=== PATIENT | male | born 1945 | race Caucasian/White ===

== ENCOUNTER 2021-02-21 10:05 | Emergency (ER) | payer MEDICARE, OTHER, SELFPAY ==
--- NOTE | ~2021-02-21 | XR_ITS ---
EXAMINATION: XR FOOT, LEFT CLINICAL INFORMATION: Left foot injury. Pain. COMPARISON: None TECHNIQUE: AP, lateral, and oblique views of the left foot. FINDINGS: There is no visible acute fracture, dislocation or subluxation seen. The ankle mortise and subtalar joints are normal. There is dorsal talonavicular osteophyte likely from old injury. The soft tissues are normal. XR/XR foot LT min 3V IMPRESSION: Unremarkable left foot exam.
[2021-02-21 10:30] VITALS: BP 193/91; PULSE 81; RESP 16; TEMP 36.8; O2SAT 97; BMI 28.1
--- NOTE | 2021-02-21 10:44 | ED_ITS ---
HPI - Extremity Injury (Lower) General Chief Complaint: Extremity Injury, Lower Stated Complaint: lt foot pain Time Seen by Provider: 02/21/21 10:44 History of Present Illness HPI Narrative: Patient complains of left foot pain after stubbing it into the stairs several days ago, no numbness weakness or tingling Related Data Allergies Allergy/AdvReac Type Severity Reaction Status Date / Time No Known Allergies Allergy Verified 02/21/21 10:29 Review of Systems Review of Systems: Positive for left foot pain Negatives are no fever no chills no dizziness no weakness no fainting no headache no neck pain or back pain no numbness weakness or tingling no skin rash Yes all other systems are reviewed and are negative [facility] [place] Past Medical History Attestation statement: The following information was validated with the patient. [facility] Narrative: Patient's blood pressure today was 193/90, ask the patient if he had a history of high blood pressure he said he does but did not like taking the medicine so stopped it so he is not taking any medication now Medical History (Updated 02/22/21 @ 00:01 by Maria Fernanda Jamison) No known health problems Social History Social History Alcohol intake: current Alcohol intake frequency: a few times a week Alcohol type: beer Smoking Status: Current every day smoker Use of substances other than those prescribed or required for medical reasons: Yes Substance Use Type: Marijuana Advance Directives: No Advance Directives Information Provided: No Physical Exam Vital Signs: Vital Signs: Last Vital Signs Temp 98.3 F 02/21/21 10:30 Pulse 76 02/21/21 11:15 Resp 18 02/21/21 11:15 BP 182/80 H 02/21/21 11:15 Pulse Ox 96 02/21/21 11:15 Body Mass Index 28.1 General appearance no acute distress Head is normocephalic atraumatic Neck is supple Respiratory no acute distress, chest is clear to auscultation bilateral Heart no murmur Extremities the left foot has some tenderness over the dorsum, no obvious deformity, skin is intact with no redness warmth or signs of infection, there is no rash, neurovascular intact Course Course Course Narrative: Patient with history of high blood pressure who does not take any medication is educated and advised about the risk of untreated high blood pressure, his was present and they agreed they will buy a home blood pressure cuff keep a log and make an appointment as soon as possible with primary care doctor, he is advised that there are many different medications and if 1 produces a bad reaction they can try another and they said they will follow up For the foot x-ray was normal and patient is referred to radius corner machine operator or orthopedist for further evaluation Discharge Plan Discharge Clinical Impression: Hypertension, Contusion of foot, left Patient Disposition: Home, Self-Care Additional Instructions: Your blood pressure today was 193/91 which is very high You told me you would stop taking her medication as it produced a bad side effect, but there are many different medications so your doctor will help you find a medicine that controls her blood pressure but does not produce any side effect Best plan is to get a home blood pressure cuff, keep a written log with at least 2 readings every day until you get your doctor's appointment and make the soonest possible primary care appointment that you can The x-ray of left foot was normal Okay for all activities If discomfort continues follow with orthopedist or radius corner machine operator Referrals: Golden Hutchison MD [Physician] - 2 days (Left foot injury) Manny Dumont [Physician] - 2 days (Left foot pain) Interventions: ED Discharge Assessment Last Done: 02/21/21 11:36 ED Discharge Assessment Last Done: 02/21/21 11:36 Discharge Date/Time: 02/21/21 11:37
[2021-02-21 11:15] VITALS: BP 182/80; PULSE 76; RESP 18; O2SAT 96
== END 2021-02-21 11:37 | disposition home or self-care (01) ==
PROVIDERS: Emergency Provider Emergency Medicine; PCP Internal Medicine
DX: I10 Essential (primary) hypertension (principal); S90.32XA Contusion of left foot, initial encounter; W22.09XA Striking against other stationary object, initial encounter; Y93.89 Activity, other specified; Y92.018 Other place in single-family (private) house as the place of occurrence of the external cause; Y99.9 Unspecified external cause status; F17.200 Nicotine dependence, unspecified, uncomplicated; F12.90 Cannabis use, unspecified, uncomplicated
CPT/HCPCS: 73630; 99283; 99284

== ENCOUNTER 2021-05-08 07:52 | Outpatient (REF) | payer MEDICARE, OTHER, SELFPAY ==
[2021-05-08 11:04] LABS: MANUAL DIFF FLAG NO
[2021-05-08 11:20] LABS: Basophils Percent Auto 0.4 % (0-2); Eosinophils Absolute Auto 0.4 X10*3/uL (0.0-0.4); Eosinophils Percent Auto 3.5 % (0-4); Hematocrit 48.5 % (42-52); Hemoglobin 15.9 g/dl (14.0-18.0); Imm Gran Abs Auto 0.04 X10*3/uL (0.00-0.03); Imm Gran Pct Auto 0.4 % (0.0-0.4); Lymphocytes Absolute Auto 2.2 X10*3/uL (1.2-4.9); Lymphocytes Percent Auto 19.3 % (20-40); Mean Corpuscular HGB Conc 32.8 g/dl (31.0-36.0); Mean Corpuscular Hemoglobin 30.7 pg (27.0-33.0); Mean Corpuscular Volume 93.6 fL (80-98); Mean Platelet Volume 9.8 fL (9.4-12.4); Monocytes Absolute Auto 0.7 X10*3/uL (0.1-1.2); Monocytes Percent Auto 6.6 % (2-11); Neutrophils Absolute Auto 7.8 X10*3/uL (2.0-8.3); Neutrophils Percent Auto 69.8 % (45-73); Platelet Count 368 X10*3/uL (160-400); Red Blood Count 5.18 X10*6/uL (4.60-5.80); Red Cell Distribution Width 12.9 % (11.0-16.0); White Blood Count 11.2 X10*3/uL (4.8-10.8)
[2021-05-08 11:31] LABS: Alanine Aminotransferase 22 U/L (0-40); Albumin Level 4.1 g/dL (3.5-5.0); Alkaline Phosphatase 102 U/L (39-117); Anion Gap 14 (12-20); Aspartate Amino Transferase 21 U/L (5-37); Bilirubin Total 1.2 mg/dL (0.0-1.0); Blood Urea Nitrogen 16 mg/dL (9-16); Calcium 9.1 mg/dL (8.4-10.2); Carbon Dioxide 26 mmol/L (22-29); Chloride 103 mmol/L (96-108); Cholesterol 224 mg/dL; Estimated Glomerular Filt Rate 58; Glucose Fasting 89 mg/dL (60-99); HDL Cholesterol 34 mg/dL; LDL Cholesterol Calculated 140 mg/dl; Potassium 4.7 mmol/L (3.3-5.1); Sodium 138 mmol/L (135-145); Total Protein 7.2 g/dL (6.5-8.0); Triglycerides 254 mg/dL
[2021-05-08 11:54] LABS: TSH reflex Free T4 1.16 uIU/mL (0.32-4.0)
== END 2021-05-08 07:53 | disposition home or self-care (01) ==
LOC: HO.HMGCLDS 07:52
PROVIDERS: PCP Internal Medicine; Visit Provider Internal Medicine
DX: E78.9 Disorder of lipoprotein metabolism, unspecified (principal); I10 Essential (primary) hypertension; Z76.89 Persons encountering health services in other specified circumstances
CPT/HCPCS: 36415; 80053; 80061; 84443; 85025

== ENCOUNTER → 2021-06-12 09:06 | Outpatient (REF) | payer MEDICARE, OTHER, SELFPAY ==
--- NOTE | 2021-06-12 09:11 | CA_ITS ---
Acquisition Time: 2021-06-12 10:27:57 Total Exercise Time: 00:09:19 Test Indications: CP Medications: Protocol: JORGE LUIS Max HR: 127 BPM 86% of Pred: 146 BPM Max BP: 140/080 mmHG Max Work Load: 10.5 METS Exercise stress test with exercise 9 min 19 sec of Jorge Luis protocol, with mild to mod sob, no chest discomfort, without arrythmia, with normotensive response to exercise, with borderline EKG changes inferiorly and V4-V6 then with downsloping ST inferiorly in recovery. In recovery there was 2 episodes of 3 beats wide complex rhythm, asymptomatic. Test reviewed with Dr Grimm Message sent to Dr Camejo with recommendation for an exercise nuclear stress test. Referred By: Osmany Camejo Overread By: SHARMAINE PETER
--- NOTE | 2021-06-12 09:11 | CA_ITS ---
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 Normal LV systolic function with mild LVH with impaired relaxation pattern 2. Normal cardiac valvular dopplers 3.Normal RVSP 4. No pericardial effusion Findings Left Ventricle Normal left ventricular size and systolic function. There is mildly increased left ventricular wall thickness. Spectral Doppler is indicative of an impaired relaxation filling pattern. E/E prime ratio is between 8 and 15 consistent with indeterminate filling pressures. Right Ventricle Normal right ventricular cavity size and systolic function. Aortic Valve Normal aortic valve structure and function. There is no aortic valve stenosis. There is no aortic valve regurgitation. Mitral Valve There is mild anterior mitral leaflet thickening. There is mild mitral annular calcification. There is trace mitral valve regurgitation. There is no mitral valve stenosis. Pulmonic Valve The pulmonic valve is likely normal. There is trace pulmonic valve regurgitation. Tricuspid Valve Normal tricuspid valve structure. There is mild tricuspid valve regurgitation. The right ventricular systolic pressure is normal. The right ventricular systolic pressure is 20 mmHg. There is no evidence of pulmonary hypertension. Great Vessels All visible segments of the aorta are normal in size. The pulmonary artery was not well visualized. Venous The inferior vena cava is normal in size and collapses greater than 50% with inspiration. Pericardium/Pleural There is no evidence of pericardial effusion. Prior Study Comparison No prior study available for comparison. Measurements 2D Linear Measurements IVSd: 1.24 0.6-0.9/0.6-1.0 cm LVIDd: 4.92 3.9-5.3/4.2-5.9 cm LVIDd Index: 2.50 2.4-3.2/2.2-3.1 cm/m2 LVIDs: 3.16 2.0-3.6 cm LVPWd: 1.21 0.7-1.1 cm Ao Root: 2.50 2.1-3.5 cm LA Diam: 3.90 2.7-3.8/3.0-4.0 cm LAIDs Index: 1.98 1.5-2.3 cm/m2 LV Mass: 292.47 67-162/88-224 g LV Mass Index: 148.46 43-95/49-115 g/m2 LVOT Diam: 2.40 3.0+(-)1.3 cm 2D Systolic Function EF 4C: 68.80 >55% EF 2C: 73.50 >55% EF BiP: 71.20 >55% Mitral Valve MV Pk E: 0.83 MV PK A: 0.68 MV Decel Time: 199.00 E/A: 1.20 E'Lateral: 9.14 E'Medial: 7.07 E/E' Med: 11.80 E/E' Lat: 9.10 PHT: 58.00 MVA PHT: 3.79 Decel Kent: 4.18 Aortic Valve AoV Pk Mike: 1.37 AoV Pk Grad: 8.00 LVOT LVOT Pk Mike: 1.12 LVOT Mn Mike: 0.69 LVOT VTI: 0.27 LVOT Pk Grad: 5.00 LVOT Mn Grad: 2.00 LVOT Diam: 2.40 LVOT Area: 4.52 Diastolic Function MV Pk E: 0.83 MV Pk A: 0.68 E/A: 1.20 E'Medial: 7.07 E/E' Med: 11.80 E' Laterial: 9.14 E/E' Lat: 9.10 Right Ventricle TAPSE (mm): 2.35 Tricuspid Valve TR Pk Mike: 208.00 TR Pk Grad: 17.00 RA Press: 3.00 RVSP: 20.00 Great Vessels Aorta Ao Root-2D: 2.50 2.0-3.7 cm Ao Asc: 3.30 2.1-3.4 cm Updated in Other Vendor System with Status of Final Goran Grimm MD electronically signed on 06/13/2021 9:38:45 AM with status of Final
== END ==
LOC: HO.CARD 09:06
PROVIDERS: PCP Internal Medicine; Visit Provider Internal Medicine
DX: R07.9 Chest pain, unspecified (principal); E78.9 Disorder of lipoprotein metabolism, unspecified; I10 Essential (primary) hypertension; Z72.0 Tobacco use
CPT/HCPCS: 93017; 93306

== ENCOUNTER → 2021-08-08 10:07 | Outpatient (BNVA) | payer MEDICARE, OTHER, SELFPAY | PROVIDERS: PCP Internal Medicine; Referring Provider Internal Medicine; Visit Provider Internal Medicine Cardiovascular Disease | DX: R07.9 Chest pain, unspecified (principal); I25.10 Atherosclerotic heart disease of native coronary artery without angina pectoris; I10 Essential (primary) hypertension; E78.5 Hyperlipidemia, unspecified; F17.210 Nicotine dependence, cigarettes, uncomplicated; Z79.899 Other long term (current) drug therapy | CPT/HCPCS: 93005; 99202 ==

== ENCOUNTER 2021-09-13 07:37 | Outpatient (REF) | payer MEDICARE, OTHER, SELFPAY ==
[2021-09-13 12:01] LABS: Anion Gap 17 (12-20); Blood Urea Nitrogen 22 mg/dL (9-16); Calcium 9.8 mg/dL (8.4-10.2); Carbon Dioxide 28 mmol/L (22-29); Chloride 99 mmol/L (96-108); Cholesterol 198 mg/dL; Estimated Glomerular Filt Rate 46; Glucose Random 100 mg/dL (60-115); HDL Cholesterol 42 mg/dL; LDL Cholesterol Calculated 85 mg/dl; Potassium 4.3 mmol/L (3.3-5.1); Sodium 140 mmol/L (135-145); Triglycerides 358 mg/dL
== END 2021-09-13 07:38 | disposition home or self-care (01) ==
LOC: HO.HMGCLDS 07:37
PROVIDERS: PCP Internal Medicine; Visit Provider Internal Medicine Cardiovascular Disease
DX: R07.9 Chest pain, unspecified (principal); I10 Essential (primary) hypertension; I25.10 Atherosclerotic heart disease of native coronary artery without angina pectoris
CPT/HCPCS: 36415; 80048; 80061

== ENCOUNTER → 2021-11-21 08:14 | Outpatient (BNVA) | payer MEDICARE, OTHER, SELFPAY | PROVIDERS: PCP Internal Medicine; Referring Provider Internal Medicine; Visit Provider Internal Medicine Cardiovascular Disease | DX: I25.10 Atherosclerotic heart disease of native coronary artery without angina pectoris (principal); I10 Essential (primary) hypertension; E78.5 Hyperlipidemia, unspecified; Z79.82 Long term (current) use of aspirin | CPT/HCPCS: 99212 ==

== ENCOUNTER 2021-12-05 09:05 | Outpatient (REF) | payer MEDICARE, OTHER, SELFPAY ==
[2021-12-05 12:27] LABS: Alanine Aminotransferase 26 U/L (0-40); Albumin Level 4.4 g/dL (3.5-5.0); Alkaline Phosphatase 93 U/L (39-117); Anion Gap 15 (12-20); Aspartate Amino Transferase 26 U/L (5-37); Bilirubin Total 1.2 mg/dL (0.0-1.0); Blood Urea Nitrogen 25 mg/dL (9-16); Calcium 9.8 mg/dL (8.4-10.2); Carbon Dioxide 30 mmol/L (22-29); Chloride 102 mmol/L (96-108); Estimated Glomerular Filt Rate 43; Glucose Random 159 mg/dL (60-115); Potassium 4.7 mmol/L (3.3-5.1); Sodium 142 mmol/L (135-145); Total Protein 7.4 g/dL (6.5-8.0)
== END 2021-12-05 09:06 | disposition home or self-care (01) ==
LOC: HO.HMGCLDS 09:05
PROVIDERS: PCP Internal Medicine; Visit Provider Internal Medicine
DX: E78.9 Disorder of lipoprotein metabolism, unspecified (principal); I10 Essential (primary) hypertension; I25.10 Atherosclerotic heart disease of native coronary artery without angina pectoris; R79.89 Other specified abnormal findings of blood chemistry; E66.09 Other obesity due to excess calories
CPT/HCPCS: 36415; 80053

== ENCOUNTER 2022-02-12 06:12 | Outpatient (REF) | payer MEDICARE, OTHER, SELFPAY ==
[2022-02-12 11:56] LABS: Cholesterol 188 mg/dL; HDL Cholesterol 39 mg/dL; LDL Cholesterol Calculated 104 mg/dl; Triglycerides 225 mg/dL
[2022-02-15 14:42] LABS: CRP High Sensitivity 5.1 mg/L
== END 2022-02-12 06:13 | disposition home or self-care (01) ==
LOC: HO.HMGCLDS 06:12
PROVIDERS: PCP Internal Medicine; Visit Provider Internal Medicine Cardiovascular Disease
DX: I25.10 Atherosclerotic heart disease of native coronary artery without angina pectoris (principal); E78.5 Hyperlipidemia, unspecified
CPT/HCPCS: 36415; 80061; 86141

== ENCOUNTER 2022-03-06 08:48 | Outpatient (REF) | payer MEDICARE, OTHER, SELFPAY ==
[2022-03-06 11:47] LABS: Alanine Aminotransferase 36 U/L (0-40); Albumin Level 4.4 g/dL (3.5-5.0); Alkaline Phosphatase 98 U/L (39-117); Anion Gap 13 (12-20); Aspartate Amino Transferase 30 U/L (5-37); Bilirubin Total 0.9 mg/dL (0.0-1.0); Blood Urea Nitrogen 26 mg/dL (9-16); Calcium 9.9 mg/dL (8.4-10.2); Carbon Dioxide 31 mmol/L (22-29); Chloride 100 mmol/L (96-108); Estimated Glomerular Filt Rate 44; Glucose Random 187 mg/dL (60-115); Potassium 4.3 mmol/L (3.3-5.1); Sodium 140 mmol/L (135-145); Total Protein 7.4 g/dL (6.5-8.0)
== END 2022-03-06 08:49 | disposition home or self-care (01) ==
LOC: HO.HMGCLDS 08:48
PROVIDERS: Visit Provider Internal Medicine
DX: E66.09 Other obesity due to excess calories (principal); E78.9 Disorder of lipoprotein metabolism, unspecified; I10 Essential (primary) hypertension; I25.10 Atherosclerotic heart disease of native coronary artery without angina pectoris; R79.89 Other specified abnormal findings of blood chemistry
CPT/HCPCS: 36415; 80053

== ENCOUNTER 2022-04-20 06:06 | Outpatient (REF) | payer MEDICARE, OTHER, SELFPAY ==
[2022-04-20 12:36] LABS: HBS Num1 1.65 mIU/mL (0-7.99); HBc Num1 0.11 S/CO (0.00-0.79); HBsAGNum1 0.23 S/CO (0.00-0.99); Hepatitis B Core Antibody Nonreactive (Nonreactive); Hepatitis B Surface Antigen Negative (Negative); ~HepC Num1 0.05 S/CO (0.00-0.79); ~Hepatitis B Surface Antibody NONREACTIVE (Nonreactive); ~Hepatitis C Antibody Nonreactive (Nonreactive)
[2022-04-23 22:17] LABS: Prot Elec - Albumin 4.2 g/dL (3.8-4.8); Prot Elec - Alpha1 0.3 g/dL (0.2-0.3); Prot Elec - Alpha2 0.8 g/dL (0.5-0.9); Prot Elec - Beta 1 0.5 g/dL (0.4-0.6); Prot Elec - Beta 2 0.4 g/dL (0.2-0.5); Prot Elec - Gamma 0.9 g/dL (0.8-1.7); Prot Elec - Total Protein 7.1 g/dL (6.1-8.1)
[2022-04-24 11:08] LABS: Complement C3 160 mg/dL (82-185)
[2022-04-24 12:31] LABS: Anti Nuclear Antibody Screen NEGATIVE (NEGATIVE)
[2022-04-25 15:06] LABS: Kappa, Serum 214 mg/dL (176-443); Kappa/Lambda Ratio, Serum 1.59 (1.29-2.55); Lambda, Serum 135 mg/dL (91-240)
== END 2022-04-20 06:07 | disposition home or self-care (01) ==
LOC: HO.HMGCLDS 06:06
PROVIDERS: Visit Provider Internal Medicine Nephrology
DX: I12.9 Hypertensive chronic kidney disease with stage 1 through stage 4 chronic kidney disease, or unspecified chronic kidney disease (principal); N18.32 Chronic kidney disease, stage 3b; N25.0 Renal osteodystrophy
CPT/HCPCS: 36415; 83883; 84165; 86038; 86039; 86160; 86704; 86706; 86803; 87340

== ENCOUNTER 2022-05-19 06:44 | Outpatient (REF) | payer MEDICARE, OTHER, SELFPAY ==
[2022-05-19 11:22] LABS: Cholesterol 120 mg/dL; HDL Cholesterol 42 mg/dL; LDL Cholesterol Calculated 41 mg/dl; Triglycerides 186 mg/dL
[2022-05-21 11:56] LABS: CRP High Sensitivity 8.4 mg/L
== END 2022-05-19 06:45 | disposition home or self-care (01) ==
LOC: HO.HMGCLDS 06:44
PROVIDERS: PCP Internal Medicine; Visit Provider Internal Medicine Cardiovascular Disease
DX: E78.9 Disorder of lipoprotein metabolism, unspecified (principal); I25.10 Atherosclerotic heart disease of native coronary artery without angina pectoris
CPT/HCPCS: 36415; 80061; 86141

== ENCOUNTER 2022-05-22 11:18 | Outpatient (REF) | payer MEDICARE, OTHER, SELFPAY ==
--- NOTE | ~2022-05-22 | US_ITS ---
EXAMINATION: US RETROPERITONEAL LIMITED (RENAL ONLY) CLINICAL INFORMATION: Chronic kidney disease stage 3B. Essential hypertension. COMPARISON: None TECHNIQUE: Real-time imaging of the kidneys. FINDINGS: RIGHT KIDNEY: 10.2 x 5.6 x 5.9 cm (SAG x AP x TRV). The kidney is normal in size, contour, and echogenicity. Renal cortical thickness is normal. No calculi or focal parenchymal lesions. No hydronephrosis. LEFT KIDNEY: 10.8 x 6.0 x 5.1 cm (SAG x AP x TRV). The kidney is normal in size, contour, and echogenicity. Renal cortical thickness is normal. No calculi or focal parenchymal lesions. No hydronephrosis. US/US renal BI IMPRESSION: Normal renal ultrasound..
== END 2022-05-22 11:19 | disposition home or self-care (01) ==
LOC: HO.HMGCX 11:18
PROVIDERS: PCP Internal Medicine; Visit Provider Internal Medicine Nephrology
DX: I12.9 Hypertensive chronic kidney disease with stage 1 through stage 4 chronic kidney disease, or unspecified chronic kidney disease (principal); N18.32 Chronic kidney disease, stage 3b; N25.0 Renal osteodystrophy
CPT/HCPCS: 76775

== ENCOUNTER 2022-06-12 10:26 | Outpatient (REF) | payer MEDICARE, OTHER, SELFPAY ==
--- NOTE | ~2022-06-12 | XR_ITS ---
EXAMINATION: XR FOOT, RIGHT CLINICAL INFORMATION: Right foot pain. COMPARISON: None TECHNIQUE: AP, lateral, and oblique views of the right foot. FINDINGS: The bones and soft tissues are normal. No fracture. Alignment is anatomic. Joint spaces are maintained. XR/XR foot RT min 3V IMPRESSION: Unremarkable right foot.
[2022-06-12 11:28] LABS: MANUAL DIFF FLAG NO
[2022-06-12 11:37] LABS: Basophils Absolute Auto 0.1 X10*3/uL (0.0-0.2); Basophils Percent Auto 0.5 % (0-2); Eosinophils Absolute Auto 0.2 X10*3/uL (0.0-0.4); Eosinophils Percent Auto 1.5 % (0-4); Hematocrit 36.3 % (42.0-52.0); Hemoglobin 12.2 g/dl (14.0-18.0); Imm Gran Abs Auto 0.03 X10*3/uL (0.00-0.03); Imm Gran Pct Auto 0.3 % (0.0-0.4); Lymphocytes Absolute Auto 1.6 X10*3/uL (1.2-4.9); Lymphocytes Percent Auto 16.4 % (20-40); Mean Corpuscular HGB Conc 33.6 g/dl (31.0-36.0); Mean Corpuscular Hemoglobin 29.5 pg (27.0-33.0); Mean Corpuscular Volume 87.9 fL (80.0-98.0); Mean Platelet Volume 10.3 fL (9.4-12.4); Monocytes Absolute Auto 1.1 X10*3/uL (0.1-1.2); Monocytes Percent Auto 10.7 % (2-11); Neutrophils Percent Auto 70.6 % (45-73); Platelet Count 277 X10*3/uL (160-400); Red Blood Count 4.13 X10*6/uL (4.60-5.80); Red Cell Distribution Width 12.7 % (11.0-16.0); White Blood Count 9.9 X10*3/uL (4.8-10.8)
[2022-06-12 12:15] LABS: Alanine Aminotransferase 27 U/L (0-40); Albumin Level 4.2 g/dL (3.5-5.0); Alkaline Phosphatase 107 U/L (39-117); Anion Gap 16 (12-20); Aspartate Amino Transferase 23 U/L (5-37); Bilirubin Total 1.3 mg/dL (0.0-1.0); Blood Urea Nitrogen 29 mg/dL (9-16); Calcium 9.3 mg/dL (8.4-10.2); Carbon Dioxide 29 mmol/L (22-29); Chloride 98 mmol/L (96-108); Estimated Glomerular Filt Rate 41; Glucose Random 173 mg/dL (60-115); Potassium 3.4 mmol/L (3.3-5.1); Sodium 140 mmol/L (135-145); Total Protein 6.9 g/dL (6.5-8.0); Uric Acid 10.7 mg/dL (3.4-7.0)
[2022-06-13 19:17] LABS: LDL Cholesterol Direct 42 mg/dL (<100)
== END 2022-06-12 10:27 | disposition home or self-care (01) ==
LOC: HO.HMGCX 10:26
PROVIDERS: PCP Internal Medicine; Visit Provider Internal Medicine
DX: M79.671 Pain in right foot (principal); E66.09 Other obesity due to excess calories; E78.9 Disorder of lipoprotein metabolism, unspecified; I10 Essential (primary) hypertension; I25.10 Atherosclerotic heart disease of native coronary artery without angina pectoris; R79.89 Other specified abnormal findings of blood chemistry
CPT/HCPCS: 36415; 73630; 80053; 83721; 84550; 85025

== ENCOUNTER 2022-11-20 06:18 | Outpatient (REF) | payer MEDICARE, OTHER, SELFPAY ==
[2022-11-20 12:01] LABS: Cholesterol 127 mg/dL; HDL Cholesterol 42 mg/dL; LDL Cholesterol Calculated 51 mg/dl; Triglycerides 174 mg/dL
== END 2022-11-20 06:19 | disposition home or self-care (01) ==
LOC: HO.HMGCLDS 06:18
PROVIDERS: PCP Internal Medicine; Visit Provider Internal Medicine Cardiovascular Disease
DX: I25.10 Atherosclerotic heart disease of native coronary artery without angina pectoris (principal); R79.89 Other specified abnormal findings of blood chemistry
CPT/HCPCS: 36415; 80061

== ENCOUNTER → 2022-11-26 08:22 | Outpatient (BNVA) | payer MEDICARE, OTHER, SELFPAY | PROVIDERS: PCP Internal Medicine; Referring Provider Internal Medicine; Visit Provider Internal Medicine Cardiovascular Disease | DX: I25.10 Atherosclerotic heart disease of native coronary artery without angina pectoris (principal); I10 Essential (primary) hypertension | CPT/HCPCS: 93005; 99212 ==

== ENCOUNTER 2023-01-02 06:02 | Outpatient (REF) | payer MEDICARE, OTHER, SELFPAY ==
[2023-01-02 11:54] LABS: MANUAL DIFF FLAG NO
[2023-01-02 11:57] LABS: Basophils Percent Auto 0.2 % (0-2); Hematocrit 38.4 % (42.0-52.0); Hemoglobin 12.6 g/dl (14.0-18.0); Imm Gran Abs Auto 0.05 X10*3/uL (0.00-0.03); Imm Gran Pct Auto 0.5 % (0.0-0.4); Lymphocytes Absolute Auto 1.9 X10*3/uL (1.2-4.9); Mean Corpuscular HGB Conc 32.8 g/dl (31.0-36.0); Mean Corpuscular Hemoglobin 29.4 pg (27.0-33.0); Mean Corpuscular Volume 89.7 fL (80.0-98.0); Mean Platelet Volume 10.2 fL (9.4-12.4); Monocytes Absolute Auto 1.1 X10*3/uL (0.1-1.2); Monocytes Percent Auto 10.4 % (2-11); Neutrophils Percent Auto 69.9 % (45-73); Platelet Count 324 X10*3/uL (160-400); Red Blood Count 4.28 X10*6/uL (4.60-5.80); Red Cell Distribution Width 13.2 % (11.0-16.0); White Blood Count 10.1 X10*3/uL (4.8-10.8)
[2023-01-02 13:01] LABS: Alanine Aminotransferase 27 U/L (0-40); Alkaline Phosphatase 85 U/L (39-117); Anion Gap 15 (12-20); Aspartate Amino Transferase 22 U/L (5-37); Blood Urea Nitrogen 27 mg/dL (9-16); Calcium 9.3 mg/dL (8.4-10.2); Carbon Dioxide 29 mmol/L (22-29); Chloride 103 mmol/L (96-108); Estimated Glomerular Filt Rate 48; Glucose Random 117 mg/dL (60-115); Potassium 4.2 mmol/L (3.3-5.1); Sodium 143 mmol/L (135-145); Total Protein 6.5 g/dL (6.5-8.0); Uric Acid 8.4 mg/dL (3.4-7.0)
== END 2023-01-02 06:03 | disposition home or self-care (01) ==
LOC: HO.HMGCLDS 06:02
PROVIDERS: PCP Internal Medicine; Visit Provider Internal Medicine
DX: Z00.01 Encounter for general adult medical examination with abnormal findings (principal); E66.09 Other obesity due to excess calories; E79.0 Hyperuricemia without signs of inflammatory arthritis and tophaceous disease; I10 Essential (primary) hypertension; N28.9 Disorder of kidney and ureter, unspecified; E78.9 Disorder of lipoprotein metabolism, unspecified
CPT/HCPCS: 36415; 80053; 84550; 85025

== ENCOUNTER 2023-03-15 06:09 | Outpatient (REF) | payer MEDICARE, OTHER, SELFPAY ==
[2023-03-15 11:27] LABS: MANUAL DIFF FLAG NO
[2023-03-15 11:59] LABS: Appearance Urine Clear; Basophils Absolute Auto 0.1 X10*3/uL (0.0-0.2); Color Urine Yellow; Eosinophils Absolute Auto 0.2 X10*3/uL (0.0-0.4); Eosinophils Percent Auto 2.2 % (0-4); Glucose Urine UA Negative (Negative); Hematocrit 38.7 % (42.0-52.0); Hemoglobin 12.7 g/dl (14.0-18.0); Imm Gran Abs Auto 0.02 X10*3/uL (0.00-0.03); Imm Gran Pct Auto 0.3 % (0.0-0.4); Leukocyte Esterase Urine Negative (Negative); Lymphocytes Absolute Auto 1.7 X10*3/uL (1.2-4.9); Lymphocytes Percent Auto 22.5 % (20-40); Mean Corpuscular HGB Conc 32.8 g/dl (31.0-36.0); Mean Corpuscular Hemoglobin 29.3 pg (27.0-33.0); Mean Corpuscular Volume 89.4 fL (80.0-98.0); Mean Platelet Volume 10.3 fL (9.4-12.4); Monocytes Absolute Auto 0.8 X10*3/uL (0.1-1.2); Monocytes Percent Auto 10.9 % (2-11); Neutrophils Absolute Auto 4.6 x10*3/uL (2.0-8.3); Neutrophils Percent Auto 63.1 % (45-73); Nitrite Urine Negative (Negative); Platelet Count 292 X10*3/uL (160-400); Red Blood Count 4.33 X10*6/uL (4.60-5.80); Red Cell Distribution Width 13.2 % (11.0-16.0); Specific Gravity - Urine 1.015 (1.005-1.025); UMIC TRIGGER UA YES; Urine Blood Negative (Negative); Urine Ketones Negative (Negative); Urine Protein 30 (1+) mg/dL (Neg-Trace); White Blood Count 7.3 X10*3/uL (4.8-10.8)
[2023-03-15 12:03] LABS: Bacteria Urine None Seen (None Seen); Hyaline Casts Urine 0-2 /LPF (0-2); RBC Urine 0-2 /HPF (0-2); Squamous Epithelial Cell Urine 0-2 /HPF (0-2); WBC Urine 0-5 /HPF (0-5)
[2023-03-15 12:30] LABS: Creatinine Urine 185.13 mg/dL; Microalbum/Creatinine Ratio Ur 85.8 ug/mg cr; Protein/Creatinine Ratio, Ur 0.15 (<0.2); Total Protein Urine Random 28 mg/dL (<12)
[2023-03-15 12:36] LABS: Albumin Level 4.2 g/dL (3.5-5.0); Anion Gap 14 (12-20); Blood Urea Nitrogen 25 mg/dL (9-16); Calcium 9.6 mg/dL (8.4-10.2); Carbon Dioxide 32 mmol/L (22-29); Chloride 101 mmol/L (96-108); Estimated Glomerular Filt Rate 38; Magnesium 2.1 mg/dL (1.6-2.6); Phosphorus 3.9 mg/dL (2.7-4.5); Sodium 143 mmol/L (135-145)
[2023-03-15 12:37] LABS: Vitamin D 25-OH Total 54.6 ng/mL (>30)
[2023-03-18 14:18] LABS: Calcium (PTHI) 9.7 mg/dL (8.6-10.3); PTHI 59 pg/mL (16-77)
== END 2023-03-15 06:10 | disposition home or self-care (01) ==
LOC: HO.HMGCLDS 06:09
PROVIDERS: PCP Internal Medicine; Visit Provider Internal Medicine Nephrology
DX: I12.9 Hypertensive chronic kidney disease with stage 1 through stage 4 chronic kidney disease, or unspecified chronic kidney disease (principal); N18.32 Chronic kidney disease, stage 3b; R82.90 Unspecified abnormal findings in urine
CPT/HCPCS: 36415; 80051; 81001; 82040; 82043; 82306; 82310; 82565; 83735; 83970; 84100; 84156; 84520; 85025; 87086

== ENCOUNTER 2023-09-23 06:01 | Outpatient (REF) | payer MEDICARE, OTHER, SELFPAY ==
[2023-09-23 11:16] LABS: MANUAL DIFF FLAG NO
[2023-09-23 11:38] LABS: Appearance Urine Clear; Color Urine Yellow; Glucose Urine UA Negative (Negative); Leukocyte Esterase Urine Negative (Negative); Nitrite Urine Negative (Negative); Specific Gravity - Urine 1.015 (1.005-1.025); UMIC TRIGGER UA YES; Urine Blood Negative (Negative); Urine Ketones Negative (Negative); Urine Protein 30 (1+) mg/dL (Neg-Trace)
[2023-09-23 11:41] LABS: Basophils Absolute Auto 0.1 X10*3/uL (0.0-0.2); Basophils Percent Auto 1.2 % (0-2); Eosinophils Absolute Auto 0.8 X10*3/uL (0.0-0.4); Eosinophils Percent Auto 10.5 % (0-4); Hematocrit 37.1 % (42.0-52.0); Imm Gran Abs Auto 0.02 X10*3/uL (0.00-0.03); Imm Gran Pct Auto 0.3 % (0.0-0.4); Lymphocytes Absolute Auto 1.8 X10*3/uL (1.2-4.9); Lymphocytes Percent Auto 24.7 % (20-40); Mean Corpuscular HGB Conc 32.3 g/dl (31.0-36.0); Mean Corpuscular Hemoglobin 29.6 pg (27.0-33.0); Mean Corpuscular Volume 91.6 fL (80.0-98.0); Mean Platelet Volume 9.9 fL (9.4-12.4); Monocytes Absolute Auto 0.7 X10*3/uL (0.1-1.2); Monocytes Percent Auto 9.4 % (2-11); Neutrophils Percent Auto 53.9 % (45-73); Platelet Count 446 X10*3/uL (160-400); Red Blood Count 4.05 X10*6/uL (4.60-5.80); Red Cell Distribution Width 12.4 % (11.0-16.0); White Blood Count 7.4 X10*3/uL (4.8-10.8)
[2023-09-23 11:56] LABS: Bacteria Urine None Seen (None Seen); RBC Urine 0-2 /HPF (0-2); Squamous Epithelial Cell Urine 0-2 /HPF (0-2); WBC Urine 0-5 /HPF (0-5)
[2023-09-23 12:04] LABS: Albumin Level 3.8 g/dL (3.5-5.0); Blood Urea Nitrogen 23 mg/dL (9-16); Calcium 9.5 mg/dL (8.4-10.2); Estimated Glomerular Filt Rate 41; Magnesium 2.3 mg/dL (1.6-2.6); Phosphorus 3.3 mg/dL (2.7-4.5)
[2023-09-23 12:22] LABS: Vitamin D 25-OH Total 25.5 ng/mL (>30)
[2023-09-23 12:28] LABS: Creatinine Urine 198.26 mg/dL; Microalbum/Creatinine Ratio Ur 73.1 ug/mg cr (<30); Protein/Creatinine Ratio, Ur 0.15 (<0.2); Total Protein Urine Random 30 mg/dL (<12)
[2023-09-23 12:35] LABS: Parathyroid Hormone Intact 96.9 pg/mL (8.7-77.1)
== END 2023-09-23 06:02 | disposition home or self-care (01) ==
LOC: HO.HMGCLDS 06:01
PROVIDERS: PCP Internal Medicine; Visit Provider Internal Medicine Nephrology
DX: I12.9 Hypertensive chronic kidney disease with stage 1 through stage 4 chronic kidney disease, or unspecified chronic kidney disease (principal); N18.32 Chronic kidney disease, stage 3b; N25.0 Renal osteodystrophy; R82.90 Unspecified abnormal findings in urine
CPT/HCPCS: 36415; 81001; 82040; 82043; 82306; 82310; 82436; 82565; 82570; 83735; 83970; 84100; 84133; 84156; 84300; 84520; 85025; 87086

== ENCOUNTER → 2023-10-17 07:33 | Outpatient (REF) | payer MEDICARE, OTHER, SELFPAY | LOC: HO.CARD 07:33 | PROVIDERS: PCP Internal Medicine; Visit Provider Internal Medicine Cardiovascular Disease | DX: I10 Essential (primary) hypertension (principal) | CPT/HCPCS: 93306; 93356 ==

== ENCOUNTER → 2023-10-17 07:35 | Outpatient (BNV) | payer MEDICARE, OTHER, SELFPAY | PROVIDERS: PCP Internal Medicine; Visit Provider Internal Medicine Cardiovascular Disease | DX: I51.7 Cardiomegaly (principal) | CPT/HCPCS: 93306 ==

== ENCOUNTER 2023-11-28 08:16 | Outpatient (AMB) | payer MEDICARE, OTHER, SELFPAY ==
--- NOTE | 2023-11-28 08:24 | MHC.OFFVIS ---
Intake Vital Signs 11/28/23 08:27 Height 5 ft 7 in Weight 191 lb 12.835 oz BMI 30.0 BP 120/70 Blood Pressure Location Lt brachial Position Sitting Pulse 53 Intake Visit Reasons: 1 yr fu after echo Intake Note: 1 year follow-up with ekg after echo feeling good [place] Required: No Allergies No Known Allergies Allergy (Verified 04/03/23 12:41) Medication List - Last Reconciled 11/28/23 by Goran Grimm MD amlodipine 5 mg PO DAILY 90 days aspirin (Adult Low Dose Aspirin) 81 mg PO DAILY atenolol-chlorthalidone 50-25 mg 1 tab PO DAILY 90 days atorvastatin 80 mg PO DAILY doxazosin 2 mg PO DAILY ezetimibe 10 mg PO DAILY gabapentin 100 mg PO BID torsemide 10 mg PO DAILY HPI HPI Comments History of Present Illness Details Robert comes for follow-up. Remains very active. Continues to go for walks in the [employer]. Denies any exertional chest pain or shortness of breath. He said takes all his medications regularly. No lightheadedness, syncope. No prolonged palpitations irregular heartbeat. Seeing Nephrology for chronic kidney disease. He has a blood pressure is generally well controlled. No recent lipid panel [facility] Medical History CAD (coronary artery disease) Uncontrolled hypertension No known health problems Family History Father Heart attack Daughter Hypertension Social History Housing: [facility] Alcohol intake: current Alcohol intake frequency: a few times a week Alcohol type: beer Patient Tobacco Use Status: Former Tobacco user Cigarette Packs Per Day: 0.5 Years Smoked: 20 years e-Cigarette/Vaping Use: Never Used Second Hand Smoke Exposure: No Substance Use Type: Marijuana service: Yes Current occupational status: retired Cognitive needs: No Hearing needs: No Vision needs: Yes Review of Systems Const Denies chills, Denies fatigue, Denies fever(s), Denies frequent falls, Denies weakness, Denies weight gain and Denies weight loss ENT Denies dizziness Card Denies chest pain, Denies leg edema, Denies lightheadedness, Denies palpitations, Denies dyspnea, Denies dyspnea on exertion, Denies orthopnea and Denies other (loss of consciousness) Resp Denies cough, Denies dyspnea and Denies dyspnea on exertion GI Denies hematochezia and Denies change in stool character Musc Denies abnormal gait, Denies muscle weakness, Denies numbness, Denies radiating pain into limb and Denies tingling Neuro Denies Abnormal speech present, Denies abnormal gait, Denies dizziness, Denies frequent falls, Denies numbness, Denies tingling and Denies weakness Endo Denies fatigue and Denies palpitations Physical Exam Vital Signs: Last Vital Signs Pulse 53 11/28/23 08:27 BP 120/70 11/28/23 08:27 BMI result Body Mass Index 30.0 Const General: cooperative, comfortable, no acute distress, well developed, alert, awake and anxious Nutritional Appearance: average body habitus Orientation/consciousness: patient oriented x3 Limitations: no limitations Neck Neck: Yes trachea midline, Yes supple and Yes no JVD Chest Chest palpation & inspection: normal inspection of the chest Resp Effort & Inspection: normal respiratory effort Auscultation: clear to auscultation bilaterally Cardio Jugular venous distension: no JVD Palpation: normal PMI Rate: regular rate Rhythm: regular rhythm Heart sounds: S1 normal heart sound present, S2 normal heart sound present, no click, no gallops, no murmurs and no rubs GI Auscultation: normal bowel sounds Skin General skin exam: no rashes or lesions noted Neuro General: patient oriented x3 and no focal motor deficits Speech: No Abnormal speech present Extrem General: Yes no clubbing, cyanosis or edema Psych Appearance: grossly normal Affect: Anxious affect present Office Procedures EKG Details: EKG shows sinus bradycardia with PACs otherwise normal EKG [id number], Complete Assessment & Plan Assessment & Plan (1) CAD (coronary artery disease): Comment: No nonobstructive by coronary CTA, September 2021 Code(s): I25.10 - Atherosclerotic heart disease of [place] coronary artery without angina pectoris Plan: Nonobstructive CAD by CTA of coronary arteries. Doing very well from cardiac perspective at this point time with no current symptoms with good functional capacity. Continue aggressive vascular risk factor modification. Continue aggressive blood pressure control which on today's exam is well optimized. Continue high-intensity statin therapy. Advised lipid panel near future. Target goal LDL closer to 60 mg/dL. Continue low-dose aspirin therapy. (2) Hypertension, essential: Code(s): I10 - Essential (primary) hypertension Plan: Hypertension with chronic kidney disease. Continue aggressive blood pressure control. This is well optimized advised to monitor blood pressure intermittently at home. Low-salt diet was discussed. Continue current therapy. Importance of compliance with medication was discussed. He understands agrees. Maintain heart healthy lifestyle. Follow up in the clinic in 2 years time, sooner p.r.n.. Thank you for allowing me to partake in his care Orders: Orders Lipid Panel Today I25.10 - Atherosclerotic heart disease of [place] coronary artery without angina pectoris Coding Level of Care Code Est Pt Level 4 (34007) Diagnoses CAD (coronary artery disease) I25.10 Hypertension, essential I10 CPT Codes EKG - CPT: 12988-[id number], Complete ([id number])
[2023-11-28 08:27] VITALS: BP 120/70; PULSE 53
== END 2023-11-28 08:51 | disposition home or self-care (01) ==
PROVIDERS: Visit Provider Internal Medicine Cardiovascular Disease
DX: I25.10 Atherosclerotic heart disease of native coronary artery without angina pectoris (principal); I10 Essential (primary) hypertension
CPT/HCPCS: 93010; 99214

== ENCOUNTER → 2023-11-28 08:16 | Outpatient (BNVA) | payer MEDICARE, OTHER, SELFPAY | PROVIDERS: Visit Provider Internal Medicine Cardiovascular Disease | DX: I25.10 Atherosclerotic heart disease of native coronary artery without angina pectoris (principal); I10 Essential (primary) hypertension | CPT/HCPCS: 93005; 99212 ==

== ENCOUNTER 2023-12-03 06:05 | Outpatient (REF) | payer MEDICARE, OTHER, SELFPAY ==
[2023-12-03 11:18] LABS: MANUAL DIFF FLAG NO
[2023-12-03 11:47] LABS: Basophils Absolute Auto 0.1 X10*3/uL (0.0-0.2); Basophils Percent Auto 1.2 % (0-2); Eosinophils Absolute Auto 0.7 X10*3/uL (0.0-0.4); Eosinophils Percent Auto 9.8 % (0-4); Hematocrit 36.9 % (42.0-52.0); Imm Gran Abs Auto 0.03 X10*3/uL (0.00-0.03); Imm Gran Pct Auto 0.4 % (0.0-0.4); Lymphocytes Percent Auto 29.4 % (20-40); Mean Corpuscular HGB Conc 32.5 g/dl (31.0-36.0); Mean Corpuscular Hemoglobin 29.1 pg (27.0-33.0); Mean Corpuscular Volume 89.3 fL (80.0-98.0); Mean Platelet Volume 10.1 fL (9.4-12.4); Monocytes Absolute Auto 0.7 X10*3/uL (0.1-1.2); Monocytes Percent Auto 10.1 % (2-11); Neutrophils Absolute Auto 3.4 x10*3/uL (2.0-8.3); Neutrophils Percent Auto 49.1 % (45-73); Platelet Count 283 X10*3/uL (160-400); Red Blood Count 4.13 X10*6/uL (4.60-5.80); Red Cell Distribution Width 13.5 % (11.0-16.0); White Blood Count 6.8 X10*3/uL (4.8-10.8)
[2023-12-03 11:57] LABS: Anion Gap 14 (12-20); Blood Urea Nitrogen 23 mg/dL (9-16); Calcium 8.8 mg/dL (8.4-10.2); Carbon Dioxide 28 mmol/L (22-29); Chloride 104 mmol/L (96-108); Estimated Glomerular Filt Rate 44; Potassium 3.6 mmol/L (3.3-5.1); Sodium 142 mmol/L (135-145)
[2023-12-03 12:02] LABS: Cholesterol 102 mg/dL (<200); HDL Cholesterol 37 mg/dL (>40); LDL Cholesterol Calculated 47 mg/dL (<100); Triglycerides 92 mg/dL (<150)
== END 2023-12-03 06:06 | disposition home or self-care (01) ==
LOC: HO.HMGCLDS 06:05
PROVIDERS: PCP Internal Medicine; Referring Provider Internal Medicine Cardiovascular Disease; Visit Provider Internal Medicine Nephrology
DX: I12.9 Hypertensive chronic kidney disease with stage 1 through stage 4 chronic kidney disease, or unspecified chronic kidney disease (principal); N18.32 Chronic kidney disease, stage 3b; I25.10 Atherosclerotic heart disease of native coronary artery without angina pectoris
CPT/HCPCS: 36415; 80051; 80061; 82310; 82565; 84520; 85025

== ENCOUNTER 2024-01-10 07:44 | Outpatient (AMB) | payer MEDICARE, OTHER, SELFPAY ==
--- NOTE | 2024-01-10 07:49 | A.OFFPC_ITS ---
Vital Signs 01/10/24 07:51 Height 5 ft 7 in Weight 196 lb BMI 30.7 BP 120/60 Blood Pressure Location Rt brachial Position Sitting Pulse 58 Pulse Source Pulse Oximeter Pulse Oximetry (%) 98 Oxygen Delivery Method Room Air Intake Visit Reasons: PE Allergies No Known Allergies Allergy (Verified 04/03/23 12:41) Medication List - Last Reconciled 01/10/24 by Osmany Camejo MD amlodipine 5 mg PO DAILY 90 days aspirin (Adult Low Dose Aspirin) 81 mg PO DAILY atenolol-chlorthalidone 50-25 mg 1 tab PO DAILY 90 days atorvastatin 80 mg PO DAILY doxazosin 2 mg PO DAILY ezetimibe 10 mg PO DAILY gabapentin 100 mg PO BID torsemide 10 mg PO DAILY Tobacco use date assessed: 01/10/24 Fall risk assessment: No Falls in past year Last assessed Fall Risk: 01/10/24 Dental Screening Dental Screen Date: 01/10/24 Did you have a dental visit in the last 12 months?: No Was dental information given to patient?: No HPI PE HPI Details Patient is 78-year-old gentleman came in today for physical examination Patient no longer want to have colonoscopy done last colonoscopy was done when he was 62 years old Patient is seeing Dr. Lewis for nephropathy all blood pressure medications through Dr. Lewis is office, last visit was few days ago next 1 will be in 1 year Patient also sees Dr. Grimm for coronary artery disease cholesterol medication is through Dr. Grimm office Patient says that Dr. Grimm will see him in 2 years Patient will come and see me in 6 months and will repeat labs before he comes Physical exam 1 year [facility] Medical History CAD (coronary artery disease) Uncontrolled hypertension No known health problems Family History Father Heart attack Daughter Hypertension Social History Housing: Condominium Alcohol intake: current Alcohol intake frequency: a few times a week Alcohol type: beer Patient Tobacco Use Status: Former Tobacco user Cigarette Packs Per Day: 0.5 Years Smoked: 20 years e-Cigarette/Vaping Use: Never Used Second Hand Smoke Exposure: No Substance Use Type: Marijuana service: Yes Current occupational status: retired Cognitive needs: No Hearing needs: No Vision needs: Yes Questionnaire PHQ-9 Over the last 2 weeks, how often have you been bothered by any of the following problems? 1. Little interest or pleasure in doing things: not at all 2. Feeling down, depressed, or hopeless: not at all 3. Trouble falling or staying asleep, or sleeping too much: not at all 4. Feeling tired or having little energy: not at all 5. Poor appetite or overeating: not at all 6. Feeling bad about yourself - or that you are a failure or have let yourself or your family down: not at all 7. Trouble concentrating on things, such as reading the newspaper or watching television: not at all 8. Moving or speaking so slowly that other people could have noticed. Or the opposite - being so fidgety or restless that you have been moving around a lot more than usual: not at all 9. Thoughts that you would be better off or of hurting yourself in some way: not at all Total score: 0 Depression Screening Interpretation: Negative Depression Screening Done: Yes 19755 - PHQ-9 Billing: Yes Source: Developed by Drs. Elan Lowe, Felicita Pedro, Pablo Moss and colleagues, with an educational [place] from [employer]. Thrive Questionnaire Date Thrive assessed: 01/10/24 I am a: Patient What is your living situation today?: I have a steady place to live Within the past 12 months, did the food you bought not last and you didn't have the money to get more?: Never true Within the past 12 months, did you worry whether your food would run out before you got money to buy more?: Never true Do you have trouble paying for medicines?: No Do you have trouble getting transportation to medical appointments?: No Do you have trouble paying your heating and electricity bill?: No Do you have trouble taking care of your child, family member or friend?: No Do you have trouble with day-to-day activities such as bathing, preparing meals, shopping, managing finances, etc.?: No Are you currently unemployed and looking for a job?: No Are you interested in more education?: No Please select the resources that you would like help with: None Currently or been in a relationship where the following occur: no concerns reported THRIVE Score: 0 AUDIT C Alcohol Use Questionnaire (AUDIT-C) 1. How often do you have a drink containing alcohol?: 2-3 times a week 2. How many drinks containing alcohol do you have on a typical day when you are drinking?: 1 or 2 3. How often do you have six or more drinks on one occasion?: Never Total Score: 3 Score Reviewed/Action Taken: Yes YVES-7 AMB Questionnaire YVES-7 Date YVES - 7 assessed: 01/10/24 Feeling nervous, anxious, or on edge: 0 = Not at all Not being able to stop or control worryin = Not at all Worrying too much about different things: 0 = Not at all Trouble relaxin = Not at all Being so restless that it is hard to sit still: 0 = Not at all Becoming easily annoyed or irritable: 0 = Not at all Feeling afraid as if something awful might happen: 0 = Not at all Total YVES-7 score (0-4 normal; 5-9 mild; 10-14 moderate; 15-21 severe): 0 Source: Developed by Drs. Elan Lowe, Felicita Pedro, Pablo Moss and colleagues, with an educational [place] from [employer]. YVES-7 Assessment Billing YVES-7 Assessment Tool: YVES-7 Assessment 69090 Review of Systems Const Denies chills, Denies fever(s) and Denies headache(s) Eyes Denies blurry vision ENT Denies headache(s), Denies nasal discharge, Denies nasal obstruction, Denies odynophagia and Denies sinus pain Card Denies chest pain at rest and Denies chest pain with activity Resp Denies cough and Denies hemoptysis GI Denies diarrhea, Denies odynophagia, Denies vomiting and Denies hematemesis Reports as per HPI Musc Denies abnormal gait Skin/Breast Reports as per HPI Neuro Denies Neuro-related abnormal movements, Denies Abnormal speech present, Denies abnormal gait, Denies headache(s) and Denies Sensory deficit (Neuro) Psych Denies mood swings and Denies paranoia Endo Reports as per HPI Samy/Lymph Reports as per HPI Aller/Immun Reports as per HPI Physical exam (Primary Care) Vital Signs: Last Vital Signs Pulse 58 01/10/24 07:51 BP 120/60 01/10/24 07:51 Pulse Ox 98 01/10/24 07:51 Oxygen Delivery Method Room Air 01/10/24 07:51 BMI result Body Mass Index 30.7 Tobacco/Smoking Status: Tobacco use Status Tobacco use date assessed 01/10/24 01/10/24 07:57 Patient Tobacco Use Status Former Tobacco user 01/10/24 07:50 e-Cigarette/Vaping Use Never Used 01/10/24 07:50 PHQ-9: PHQ-9 Score PHQ-9: Total score 0 01/10/24 08:31 Depression Screening Interpretation: Negative Thrive Assessment: Date of Thrive Assessment Date Thrive assessed 01/10/24 01/10/24 07:57 Currently or been in a relationship where the following occur: no concerns reported Const General: cooperative, comfortable and no acute distress Orientation/consciousness: patient oriented x3 HENMT Head: Yes normocephalic and Yes atraumatic Eyes General: appearance normal, both eyes and all related structures Pupils: Equal, round and reactive pupils present EOM: EOMs intact bilaterally Neck Neck: Yes supple and No lymphadenopathy Thyroid: Thyroid normal Lymphatic: no lymphadenopathy noted Resp Effort & Inspection: normal respiratory effort and able to speak in complete sentences Auscultation: clear to auscultation bilaterally Cardio Heart sounds: S1 normal heart sound present and S2 normal heart sound present GI Palpation (GI): Soft to palpation and nontender Auscultation: normal bowel sounds General: Yes no CVA tenderness Back/Spine/Pelvis Back: no CVA tenderness Skin General skin exam: elasticity normal and turgor normal Neuro General: patient oriented x3 and gait normal Cranial nerves: Yes Equal, round and reactive pupils present Speech: No Abnormal speech present Sensory Exam: No Sensory deficit (Neuro) Coordination: Romberg test negative Extrem General: Yes normal exam except as noted and No edema Assessment and Plan Assessment & Plan (1) Nephropathy: Code(s): N28.9 - Disorder of kidney and ureter, unspecified (2) Hypertension, essential: Code(s): I10 - Essential (primary) hypertension (3) Obesity due to excess calories: Code(s): E66.09 - Other obesity due to excess calories Qualifiers: Body mass index: BMI 30.0-30.9 Obesity classification: adult class 1 (BMI 30 - 34.9) Serious obesity comorbidity presence: with serious comorbidity Qualified Code(s): E66.09 - Other obesity due to excess calories; Z68.30 - Body mass index [BMI] 30.0-30.9, adult (4) CAD (coronary artery disease): Comment: No nonobstructive by coronary CTA, September 2021 Code(s): I25.10 - Atherosclerotic heart disease of [place] coronary artery without angina pectoris Qualifiers: Associated angina: without angina Coronary Disease-Associated Artery/Lesion type: [place] artery [place] vs. transplanted heart: [place] heart Qualified Code(s): I25.10 - Atherosclerotic heart disease of [place] coronary artery without angina pectoris (5) Lipid disorder: Code(s): E78.9 - Disorder of lipoprotein metabolism, unspecified (6) Encounter for general adult medical examination with abnormal findings: Code(s): Z00.01 - Encounter for general adult medical examination with abnormal findings (7) Abnormal tandem walk: Code(s): R26.9 - Unspecified abnormalities of gait and mobility Plan Patient is 78-year-old gentleman came in today for physical examination Patient no longer want to have colonoscopy done last colonoscopy was done when he was 62 years old Patient is seeing Dr. Lewis for nephropathy all blood pressure medications through Dr. Lewis is office, last visit was few days ago next 1 will be in 1 year Patient also sees Dr. Grimm for coronary artery disease cholesterol medication is through Dr. Grimm office Patient says that Dr. Grimm will see him in 2 years Patient will come and see me in 6 months and will repeat labs before he comes He was not able to perform tandem walk today, patient says that it is a chronic problem for him He denies any paresthesias in feet or weakness in his legs Physical exam 1 year Orders: Orders Complete Blood Count Auto Diff 5 Months E66.09 - Other obesity due to excess calories, E78.9 - Disorder of lipoprotein metabolism, unspecified, I10 - Essential (primary) hypertension, I25.10 - Atherosclerotic heart disease of [place] coronary artery without angina pectoris, N28.9 - Disorder of kidney and ureter, unspecified Comprehensive Mcbee. Panel Fast 5 Months E66.09 - Other obesity due to excess calories, E78.9 - Disorder of lipoprotein metabolism, unspecified, I10 - Essential (primary) hypertension, I25.10 - Atherosclerotic heart disease of [place] coronary artery without angina pectoris, N28.9 - Disorder of kidney and ureter, unspecified Vitamin D 25-OH (D2 and D3) 5 Months E66.09 - Other obesity due to excess calories, E78.9 - Disorder of lipoprotein metabolism, unspecified, I10 - Essential (primary) hypertension, I25.10 - Atherosclerotic heart disease of [place] coronary artery without angina pectoris, N28.9 - Disorder of kidney and ureter, unspecified Lipid Panel 5 Months E66.09 - Other obesity due to excess calories, E78.9 - Disorder of lipoprotein metabolism, unspecified, I10 - Essential (primary) hypertension, I25.10 - Atherosclerotic heart disease of [place] coronary artery without angina pectoris, N28.9 - Disorder of kidney and ureter, unspecified Parathyroid Hormone Related Pr 5 Months E66.09 - Other obesity due to excess calories, E78.9 - Disorder of lipoprotein metabolism, unspecified, I10 - Essential (primary) hypertension, I25.10 - Atherosclerotic heart disease of [place] coronary artery without angina pectoris, N28.9 - Disorder of kidney and ureter, unspecified Microalbumin, Random (w Creat) 5 Months E66.09 - Other obesity due to excess calories, E78.9 - Disorder of lipoprotein metabolism, unspecified, I10 - Essential (primary) hypertension, I25.10 - Atherosclerotic heart disease of [place] coronary artery without angina pectoris, N28.9 - Disorder of kidney and ureter, unspecified Coding Level of Care Code Est Pt [facility] >65y([id number]) Diagnoses Nephropathy N28.9 Hypertension, essential I10 Class 1 obesity due to excess calories with serious comorbidity and body mass index (BMI) of 30.0 to 30.9 in adult E66.09; Z68.30 Body mass index: BMI 30.0-30.9 Obesity classification: adult class 1 (BMI 30 - 34.9) Serious obesity comorbidity presence: with serious comorbidity Coronary artery disease involving [place] coronary artery of [place] heart without angina pectoris I25.10 Associated angina: without angina Coronary Disease-Associated Artery/Lesion type: [place] artery [place] vs. transplanted heart: [place] heart Lipid disorder E78.9 Encounter for general adult medical examination with abnormal findings Z00.01 Abnormal tandem walk R26.9 Additional Codes YVES-7 Assessment Billing - YVES-7 Assessment Tool: YVES-7 Assessment [id number] ([id number])
[2024-01-10 07:51] VITALS: BP 120/60; PULSE 58; O2SAT 98; BMI 30.7
== END 2024-01-10 08:20 | disposition home or self-care (01) ==
PROVIDERS: Visit Provider Internal Medicine
DX: Z00.00 Encounter for general adult medical examination without abnormal findings (principal); E66.09 Other obesity due to excess calories; Z68.30 Body mass index [BMI] 30.0-30.9, adult; N28.9 Disorder of kidney and ureter, unspecified; I10 Essential (primary) hypertension; I25.10 Atherosclerotic heart disease of native coronary artery without angina pectoris; E78.9 Disorder of lipoprotein metabolism, unspecified; R26.9 Unspecified abnormalities of gait and mobility
CPT/HCPCS: 99397

== ENCOUNTER 2024-06-26 06:03 | Outpatient (REF) | payer MEDICARE, OTHER, SELFPAY ==
[2024-06-26 10:31] LABS: MANUAL DIFF FLAG NO
[2024-06-26 10:52] LABS: Alanine Aminotransferase 19 U/L (0-40); Albumin Level 4.2 g/dL (3.5-5.0); Alkaline Phosphatase 113 U/L (39-117); Anion Gap 18 (12-20); Aspartate Amino Transferase 25 U/L (5-37); Bilirubin Total 1.1 mg/dL (0.0-1.0); Blood Urea Nitrogen 27 mg/dL (9-16); Calcium 9.9 mg/dL (8.4-10.2); Carbon Dioxide 29 mmol/L (22-29); Chloride 102 mmol/L (96-108); Cholesterol 112 mg/dL (<200); Estimated Glomerular Filt Rate 41; Glucose Fasting 124 mg/dL (60-99); HDL Cholesterol 42 mg/dL (>40); LDL Cholesterol Calculated 46 mg/dL (<100); Potassium 4.5 mmol/L (3.3-5.1); Sodium 144 mmol/L (135-145); Total Protein 7.4 g/dL (6.5-8.0); Triglycerides 121 mg/dL (<150)
[2024-06-26 10:55] LABS: Creatinine Urine 85.55 mg/dL; Microalbum/Creatinine Ratio Ur 82.9 ug/mg cr (<30)
[2024-06-26 11:21] LABS: Basophils Absolute Auto 0.1 X10*3/uL (0.0-0.2); Basophils Percent Auto 1.2 % (0-2); Eosinophils Absolute Auto 0.5 X10*3/uL (0.0-0.4); Eosinophils Percent Auto 6.3 % (0-4); Hemoglobin 13.6 g/dl (14.0-18.0); Imm Gran Abs Auto 0.02 X10*3/uL (0.00-0.03); Imm Gran Pct Auto 0.3 % (0.0-0.4); Lymphocytes Percent Auto 26.1 % (20-40); Mean Corpuscular HGB Conc 32.4 g/dl (31.0-36.0); Mean Corpuscular Hemoglobin 29.6 pg (27.0-33.0); Mean Corpuscular Volume 91.3 fL (80.0-98.0); Mean Platelet Volume 10.3 fL (9.4-12.4); Monocytes Absolute Auto 0.8 X10*3/uL (0.1-1.2); Monocytes Percent Auto 10.7 % (2-11); Neutrophils Absolute Auto 4.2 x10*3/uL (2.0-8.3); Neutrophils Percent Auto 55.4 % (45-73); Platelet Count 268 X10*3/uL (160-400); Red Cell Distribution Width 13.3 % (11.0-16.0); White Blood Count 7.5 X10*3/uL (4.8-10.8)
[2024-07-02 14:28] LABS: Vitamin D 25-OH, D2 <4 ng/mL; Vitamin D 25-OH, D3 36 ng/mL; Vitamin D 25-OH, Total 36 ng/mL (30-100)
[2024-07-11 19:18] LABS: Parathyroid Hormone Related Pr 11 pg/mL (11-20)
== END 2024-06-26 06:04 | disposition home or self-care (01) ==
LOC: HO.HMGCLDS 06:03
PROVIDERS: PCP Internal Medicine; Visit Provider Internal Medicine
DX: N28.9 Disorder of kidney and ureter, unspecified (principal); I10 Essential (primary) hypertension; E66.09 Other obesity due to excess calories; I25.10 Atherosclerotic heart disease of native coronary artery without angina pectoris; E78.9 Disorder of lipoprotein metabolism, unspecified
CPT/HCPCS: 36415; 80053; 80061; 82043; 82306; 82570; 83519; 85025

== ENCOUNTER 2024-07-08 06:06 | Outpatient (REF) | payer MEDICARE, OTHER, SELFPAY ==
[2024-07-08 10:10] LABS: MANUAL DIFF FLAG NO
[2024-07-08 10:14] LABS: Basophils Absolute Auto 0.1 X10*3/uL (0.0-0.2); Basophils Percent Auto 0.7 % (0-2); Eosinophils Absolute Auto 0.3 X10*3/uL (0.0-0.4); Eosinophils Percent Auto 3.3 % (0-4); Hematocrit 36.6 % (42.0-52.0); Hemoglobin 12.2 g/dl (14.0-18.0); Imm Gran Abs Auto 0.03 X10*3/uL (0.00-0.03); Imm Gran Pct Auto 0.4 % (0.0-0.4); Lymphocytes Absolute Auto 1.3 X10*3/uL (1.2-4.9); Lymphocytes Percent Auto 16.2 % (20-40); Mean Corpuscular HGB Conc 33.3 g/dl (31.0-36.0); Mean Corpuscular Hemoglobin 30.1 pg (27.0-33.0); Mean Corpuscular Volume 90.4 fL (80.0-98.0); Mean Platelet Volume 9.9 fL (9.4-12.4); Monocytes Absolute Auto 0.8 X10*3/uL (0.1-1.2); Monocytes Percent Auto 9.1 % (2-11); Neutrophils Absolute Auto 5.8 x10*3/uL (2.0-8.3); Neutrophils Percent Auto 70.3 % (45-73); Platelet Count 322 X10*3/uL (160-400); Red Blood Count 4.05 X10*6/uL (4.60-5.80); Red Cell Distribution Width 13.2 % (11.0-16.0); White Blood Count 8.3 X10*3/uL (4.8-10.8)
[2024-07-08 10:34] LABS: Appearance Urine Clear; Color Urine Yellow; Glucose Urine UA Negative (Negative); Leukocyte Esterase Urine Negative (Negative); Nitrite Urine Negative (Negative); PH 5.5 (5.0-9.0); Urine Blood Negative (Negative); Urine Ketones Negative (Negative); Urine Protein Negative (Neg-Trace)
[2024-07-08 10:43] LABS: Bacteria Urine None Seen (None Seen); Hyaline Casts Urine 0-2 /LPF (0-2); RBC Urine 0-2 /HPF (0-2); Squamous Epithelial Cell Urine 0-2 /HPF (0-2); WBC Urine 0-5 /HPF (0-5)
[2024-07-08 10:52] LABS: Albumin Level 3.8 g/dL (3.5-5.0); Anion Gap 14 (12-20); Blood Urea Nitrogen 26 mg/dL (9-16); Calcium 9.8 mg/dL (8.4-10.2); Carbon Dioxide 28 mmol/L (22-29); Chloride 103 mmol/L (96-108); Estimated Glomerular Filt Rate 40; Magnesium 2.3 mg/dL (1.6-2.6); Phosphorus 3.6 mg/dL (2.7-4.5); Potassium 3.9 mmol/L (3.3-5.1); Sodium 141 mmol/L (135-145)
[2024-07-08 11:42] LABS: Microalbum/Creatinine Ratio Ur 87.6 ug/mg cr (<30); Protein/Creatinine Ratio, Ur 0.19 (<0.2); Total Protein Urine Random 13 mg/dL (<12)
== END 2024-07-08 06:07 | disposition home or self-care (01) ==
LOC: HO.HMGCLDS 06:06
PROVIDERS: PCP Internal Medicine; Visit Provider Internal Medicine Nephrology
DX: N18.32 Chronic kidney disease, stage 3b (principal); N25.0 Renal osteodystrophy; I10 Essential (primary) hypertension
CPT/HCPCS: 36415; 80051; 81001; 82040; 82043; 82310; 82565; 82570; 83735; 84100; 84156; 84520; 85025; 87086

== ENCOUNTER 2024-07-14 08:21 | Outpatient (AMB) | payer MEDICARE, OTHER, SELFPAY ==
[2024-07-14 08:30] VITALS: BP 118/66; PULSE 61; O2SAT 96; BMI 30.1
--- NOTE | 2024-07-14 08:30 | A.OFFPC_ITS ---
Vital Signs 07/14/24 08:30 Height 5 ft 7 in Weight 192 lb 6 oz BMI 30.1 BP 118/66 Blood Pressure Location Rt brachial Position Sitting Pulse 61 Pulse Source Pulse Oximeter Pulse Oximetry (%) 96 Oxygen Delivery Method Room Air Intake Visit Reasons: 6 month follow up Allergies No Known Allergies Allergy (Verified 07/14/24 08:33) Medication List - Last Reconciled 07/14/24 by Osmany Camejo MD amlodipine 5 mg PO DAILY 90 days aspirin (Adult Low Dose Aspirin) 81 mg PO DAILY atenolol-chlorthalidone 50-25 mg 1 tab PO DAILY 90 days atorvastatin 80 mg PO DAILY doxazosin 2 mg PO DAILY ezetimibe 10 mg PO DAILY gabapentin 100 mg PO BID torsemide 10 mg PO DAILY Tobacco use date assessed: 07/14/24 Fall risk assessment: No Falls in past year Last assessed Fall Risk: 07/14/24 Dental Screening Dental Screen Date: 07/14/24 Did you have a dental visit in the last 12 months?: Yes Did you have a dental problem in the last 6 months where you did not have access to dental care?: No Was dental information given to patient?: Patient has dentist HPI 6 month follow up HPI Details Patient is a 79-year-old gentleman came in for his follow-up appointment Patient is established with Dr. Lewis Nephrology for nephropathy His GFR is 40, he just had labs done last month , creatinine of 1.66 Hemoglobin is 12.2 values are stable He is seeing Dr. Lewis only once a year Patient also have a coronary artery disease and he is seeing electrical and instrument engineer every other year now He is also having difficulty hearing On examination his right ear is filled with wax Patient was instructed to use Debrox [id number] ear drops to clear it BMI is elevated need to lose weight Blood pressure is stable, patient is tolerating amlodipine 5 mg and atenolol chlorthalidone 50-25 mg daily He is also on atorvastatin 80 mg for lipid control and Zetia 10 mg His other medications are doxazosin 2 mg Gabapentin 100 b.i.d. And torsemide 10 mg daily Patient will return in 3 months for follow-up appointment, labs are needed before visit [facility] Medical History CAD (coronary artery disease) Uncontrolled hypertension No known health problems Family History Father Heart attack Daughter Hypertension Social History Housing: Condominium Alcohol intake: current Alcohol intake frequency: a few times a week Alcohol type: beer Patient Tobacco Use Status: Former Tobacco user Cigarette Packs Per Day: 0.5 Years Smoked: 20 years e-Cigarette/Vaping Use: Never Used Second Hand Smoke Exposure: No Substance Use Type: Marijuana service: Yes Current occupational status: retired Cognitive needs: No Hearing needs: No Vision needs: Yes Questionnaire Thrive Questionnaire Date Thrive assessed: 01/10/24 AUDIT C Alcohol Use Questionnaire (AUDIT-C) 1. How often do you have a drink containing alcohol?: 2-3 times a week 2. How many drinks containing alcohol do you have on a typical day when you are drinking?: 1 or 2 3. How often do you have six or more drinks on one occasion?: Never Total Score: 3 Score Reviewed/Action Taken: Yes YVES-7 AMB Questionnaire YVES-7 Date YVES - 7 assessed: 01/10/24 Source: Developed by Drs. Elan Lowe, Felicita Pedro, Pablo Moss and colleagues, with an educational [place] from [email or web address]. Review of Systems Const Denies chills and Denies fever(s) ENT Denies epistaxis and Denies nasal discharge Card Denies chest pain Resp Denies chest congestion, Denies cough and Denies hemoptysis GI Denies diarrhea and Denies nausea Skin/Breast Denies rash Neuro Reports no additional complaints Psych Reports no additional complaints Endo Reports no additional complaints Physical exam (Primary Care) Vital Signs: Last Vital Signs Pulse 61 07/14/24 08:30 BP 118/66 07/14/24 08:30 Pulse Ox 96 07/14/24 08:30 Oxygen Delivery Method Room Air 07/14/24 08:30 BMI result Body Mass Index 30.1 Tobacco/Smoking Status: Tobacco use Status Tobacco use date assessed 07/14/24 07/14/24 08:34 Patient Tobacco Use Status Former Tobacco user 07/14/24 08:34 e-Cigarette/Vaping Use Never Used 07/14/24 08:34 Thrive Assessment: Date of Thrive Assessment Date Thrive assessed 01/10/24 07/14/24 08:34 Const General: cooperative, comfortable and no acute distress Orientation/consciousness: patient oriented x3 HENMT Head: Yes normocephalic Eyes General: appearance normal, both eyes and all related structures Neck Neck: Yes supple Resp Effort & Inspection: normal respiratory effort, no cough and no stridor Cardio Rhythm: regular rhythm Heart sounds: S1 normal heart sound present and S2 normal heart sound present Skin General skin exam: turgor normal Neuro General: patient oriented x3, tone normal and moves all extremities Extrem Right lower extremity: no edema Left lower extremity: no edema Coding Level of Care Code Est Pt Level 4 (71840) Complex EM visit Add On G2211 Diagnoses Hypertension, essential I10 Anemia of chronic disease D63.8 Elevated serum creatinine R79.89 Class 1 obesity due to excess calories with serious comorbidity and body mass index (BMI) of 30.0 to 30.9 in adult E66.09; Z68.30 Body mass index: BMI 30.0-30.9 Obesity classification: adult class 1 (BMI 30 - 34.9) Serious obesity comorbidity presence: with serious comorbidity Hearing difficulty of both ears H91.93 Laterality: bilateral Lipid disorder E78.9 Nephropathy N28.9 Impacted cerumen, right ear H61.21
== END 2024-07-14 08:49 | disposition home or self-care (01) ==
PROVIDERS: PCP Internal Medicine; Visit Provider Internal Medicine
DX: I10 Essential (primary) hypertension (principal); D63.8 Anemia in other chronic diseases classified elsewhere; R79.89 Other specified abnormal findings of blood chemistry; E66.09 Other obesity due to excess calories; Z68.30 Body mass index [BMI] 30.0-30.9, adult; H91.93 Unspecified hearing loss, bilateral; E78.9 Disorder of lipoprotein metabolism, unspecified; N28.9 Disorder of kidney and ureter, unspecified; H61.21 Impacted cerumen, right ear

== ENCOUNTER → 2024-07-14 08:21 | Outpatient (BNVA) | payer MEDICARE, OTHER, SELFPAY | PROVIDERS: PCP Internal Medicine; Visit Provider Internal Medicine | DX: I10 Essential (primary) hypertension (principal); D63.8 Anemia in other chronic diseases classified elsewhere; R79.89 Other specified abnormal findings of blood chemistry; E66.09 Other obesity due to excess calories; Z68.30 Body mass index [BMI] 30.0-30.9, adult; H91.93 Unspecified hearing loss, bilateral; E78.9 Disorder of lipoprotein metabolism, unspecified | CPT/HCPCS: 99212 ==

== ENCOUNTER 2024-10-05 06:14 | Outpatient (REF) | payer MEDICARE, OTHER, SELFPAY ==
[2024-10-05 10:47] LABS: MANUAL DIFF FLAG NO
[2024-10-05 10:53] LABS: Basophils Absolute Auto 0.1 X10*3/uL (0.0-0.2); Basophils Percent Auto 1.1 % (0-2); Eosinophils Absolute Auto 0.5 X10*3/uL (0.0-0.4); Eosinophils Percent Auto 8.2 % (0-4); Hematocrit 38.3 % (42.0-52.0); Hemoglobin 12.6 g/dl (14.0-18.0); Imm Gran Abs Auto 0.02 X10*3/uL (0.00-0.03); Imm Gran Pct Auto 0.3 % (0.0-0.4); Lymphocytes Absolute Auto 1.8 X10*3/uL (1.2-4.9); Lymphocytes Percent Auto 29.5 % (20-40); Mean Corpuscular HGB Conc 32.9 g/dl (31.0-36.0); Mean Corpuscular Hemoglobin 29.3 pg (27.0-33.0); Mean Corpuscular Volume 89.1 fL (80.0-98.0); Mean Platelet Volume 10.4 fL (9.4-12.4); Monocytes Absolute Auto 0.7 X10*3/uL (0.1-1.2); Monocytes Percent Auto 10.4 % (2-11); Neutrophils Absolute Auto 3.2 x10*3/uL (2.0-8.3); Neutrophils Percent Auto 50.5 % (45-73); Platelet Count 260 X10*3/uL (160-400); Red Cell Distribution Width 13.8 % (11.0-16.0); White Blood Count 6.2 X10*3/uL (4.8-10.8)
[2024-10-05 11:12] LABS: Appearance Urine Clear; Color Urine Yellow; Glucose Urine UA Negative (Negative); Leukocyte Esterase Urine Negative (Negative); Nitrite Urine Negative (Negative); Specific Gravity - Urine 1.015 (1.005-1.025); Urine Blood Negative (Negative); Urine Ketones Negative (Negative); Urine Protein Negative (Neg-Trace)
[2024-10-05 11:14] LABS: Albumin Level 3.9 g/dL (3.5-5.0); Anion Gap 12 (12-20); Blood Urea Nitrogen 23 mg/dL (9-16); Calcium 8.8 mg/dL (8.4-10.2); Carbon Dioxide 32 mmol/L (22-29); Chloride 106 mmol/L (96-108); Estimated Glomerular Filt Rate 39; Phosphorus 3.3 mg/dL (2.7-4.5); Potassium 3.8 mmol/L (3.3-5.1); Sodium 146 mmol/L (135-145)
[2024-10-05 11:16] LABS: Bacteria Urine None Seen (None Seen); Hyaline Casts Urine 0-2 /LPF (0-2); RBC Urine 0-2 /HPF (0-2); Squamous Epithelial Cell Urine 0-2 /HPF (0-2); WBC Urine 0-5 /HPF (0-5)
[2024-10-05 11:31] LABS: Alanine Aminotransferase 20 U/L (0-40); Albumin Level 3.9 g/dL (3.5-5.0); Alkaline Phosphatase 93 U/L (39-117); Anion Gap 12 (12-20); Aspartate Amino Transferase 28 U/L (5-37); Bilirubin Total 0.9 mg/dL (0.0-1.0); Blood Urea Nitrogen 23 mg/dL (9-16); Calcium 8.8 mg/dL (8.4-10.2); Carbon Dioxide 32 mmol/L (22-29); Chloride 106 mmol/L (96-108); Estimated Glomerular Filt Rate 39; Glucose Random 128 mg/dL (60-115); Potassium 3.7 mmol/L (3.3-5.1); Sodium 146 mmol/L (135-145); Total Protein 6.8 g/dL (6.5-8.0)
[2024-10-05 11:33] LABS: Ferritin 42 ng/mL (20-250)
[2024-10-05 11:36] LABS: Vitamin B12 336 pg/mL (200-900)
[2024-10-05 11:46] LABS: Creatinine Urine 76.45 mg/dL; Protein/Creatinine Ratio, Ur 0.13 (<0.2); Total Protein Urine Random 10 mg/dL (<12)
[2024-10-05 12:17] LABS: Parathyroid Hormone Intact 150.9 pg/mL (8.7-77.1)
[2024-10-10 10:54] LABS: Vitamin D 25-OH, D2 <4 ng/mL; Vitamin D 25-OH, D3 38 ng/mL; Vitamin D 25-OH, Total 38 ng/mL (30-100)
== END 2024-10-05 06:15 | disposition home or self-care (01) ==
LOC: HO.HMGCLDS 06:14
PROVIDERS: PCP Internal Medicine; Referring Provider Internal Medicine Nephrology; Visit Provider Internal Medicine
DX: N18.32 Chronic kidney disease, stage 3b (principal); I10 Essential (primary) hypertension; R79.89 Other specified abnormal findings of blood chemistry; E66.09 Other obesity due to excess calories; Z68.30 Body mass index [BMI] 30.0-30.9, adult; E78.9 Disorder of lipoprotein metabolism, unspecified; N28.9 Disorder of kidney and ureter, unspecified; D63.8 Anemia in other chronic diseases classified elsewhere; H61.21 Impacted cerumen, right ear
CPT/HCPCS: 36415; 80051; 80053; 81001; 82040; 82043; 82306; 82310; 82565; 82570; 82607; 82728; 83735; 83970; 84100; 84156; 84520; 85025

== ENCOUNTER 2024-10-16 07:53 | Outpatient (AMB) | payer MEDICARE, OTHER, SELFPAY ==
--- NOTE | 2024-10-16 07:56 | MHC.PC.OV ---
Vital Signs 10/16/24 08:00 Height 5 ft 7 in Weight 195 lb BMI 30.5 BP 132/60 Blood Pressure Location Rt brachial Position Sitting Pulse 64 Pulse Source Pulse Oximeter Pulse Oximetry (%) 96 Oxygen Delivery Method Room Air Intake Visit Reasons: 3 month follow up Allergies No Known Allergies Allergy (Verified 07/14/24 08:33) Tobacco use date assessed: 10/16/24 Fall risk assessment: No Falls in past year Last assessed Fall Risk: 10/16/24 Dental Screening Dental Screen Date: 10/16/24 Did you have a dental visit in the last 12 months?: No Was dental information given to patient?: Patient has dentist HPI 3 month follow up HPI Details Patient is a 79-year-old gentleman came in for his follow-up appointment Patient is established with Dr. Lewis Nephrology for nephropathy Labs done 05 of October, that is last month showed sodium of 146 Creatinine has worsened to 1.72 With GFR of [address] Lewis only once a year Patient also have a coronary artery disease and he is seeing pipe threading machine operator every other year now BMI is elevated need to lose weight Blood pressure is stable, patient is tolerating amlodipine 5 mg and atenolol chlorthalidone 50-25 mg daily He is also on atorvastatin 80 mg for lipid control and Zetia 10 mg His other medications are doxazosin 2 mg Gabapentin 100 b.i.d. for bilateral feet pain, medication is helping patient And torsemide 10 mg daily through Cardiology office Patient will return in 3 months for follow-up appointment, labs are needed before visit Review of Systems - Cardiovascular: Denies chest pain. Denies swelling of ankles. - Respiratory: Denies shortness of breath. - General: Denies any new problems. Reports feeling like his old self again. - General: No fever no chills - Neurological: No headaches no dizziness - Ear nose throat: No sore throat no hearing difficulty no ear pain - Cardiovascular: No syncope, no chest pain, no palpitations - Gastrointestinal: No nausea vomiting or diarrhea - Endocrine: No polyuria polydipsia no heat intolerance - Genitourinary: No dysuria , no blood in urine Physical Exam General: No acute distress HEENT: No acute findings Neck: Supple Respiratory system: Able to talk in full sentences, no audible wheeze cardiovascular: S1-S2 regular in rate and rhythm, no chest pains Gastrointestinal: No pain Extremities: No new findings, no swelling of ankles CUTTER INSPECTOR: Alert awake oriented x3 motor sensory intact Skin: Normal turgor PFSH Medical History CAD (coronary artery disease) Uncontrolled hypertension No known health problems Family History Father Heart attack Daughter Hypertension [facility] Alcohol intake: current Alcohol intake frequency: a few times a week Alcohol type: beer Patient Tobacco Use Status: Former Tobacco user Cigarette Packs Per Day: 0.5 Years Smoked: 20 years e-Cigarette/Vaping Use: Never Used Second Hand Smoke Exposure: No Substance Use Type: Marijuana service: Yes Current occupational status: retired Cognitive needs: No Hearing needs: No Vision needs: Yes Questionnaire PHQ-9 Over the last 2 weeks, how often have you been bothered by any of the following problems? 1. Little interest or pleasure in doing things: not at all 2. Feeling down, depressed, or hopeless: not at all 3. Trouble falling or staying asleep, or sleeping too much: not at all 4. Feeling tired or having little energy: not at all 5. Poor appetite or overeating: not at all 6. Feeling bad about yourself - or that you are a failure or have let yourself or your family down: not at all 7. Trouble concentrating on things, such as reading the newspaper or watching television: not at all 8. Moving or speaking so slowly that other people could have noticed. Or the opposite - being so fidgety or restless that you have been moving around a lot more than usual: not at all 9. Thoughts that you would be better off or of hurting yourself in some way: not at all Total score: 0 Depression Screening Interpretation: Negative Depression Screening Done: Yes 04738 - PHQ-9 Billing: Yes Source: Developed by Drs. Elan Lowe, Felicita Pedro, Pablo Moss and colleagues, with an educational [place]ia from [employer]. Thrive Questionnaire Date Thrive assessed: 10/09/24 I am a: Patient What is your living situation today?: I have a steady place to live Within the past 12 months, did the food you bought not last and you didn't have the money to get more?: Often true Within the past 12 months, did you worry whether your food would run out before you got money to buy more?: Often true Do you have trouble paying for medicines?: No Do you have trouble getting transportation to medical appointments?: No Do you have trouble paying your heating and electricity bill?: No Do you have trouble taking care of your child, family member or friend?: No Do you have trouble with day-to-day activities such as bathing, preparing meals, shopping, managing finances, etc.?: No Are you currently unemployed and looking for a job?: No Are you interested in more education?: No Please select the resources that you would like help with: None Currently or been in a relationship where the following occur: I choose not to answer THRIVE Score: 2 AUDIT C Alcohol Use Questionnaire (AUDIT-C) 1. How often do you have a drink containing alcohol?: 2-4 times a month 3. How often do you have six or more drinks on one occasion?: Less than monthly Total Score: 3 YVES-7 AMB Questionnaire YVES-7 Date YVES - 7 assessed: 01/10/24 Feeling nervous, anxious, or on edge: 0 = Not at all Not being able to stop or control worryin = Not at all Worrying too much about different things: 0 = Not at all Trouble relaxin = Not at all Being so restless that it is hard to sit still: 0 = Not at all Becoming easily annoyed or irritable: 0 = Not at all Feeling afraid as if something awful might happen: 0 = Not at all Total YVES-7 score (0-4 normal; 5-9 mild; 10-14 moderate; 15-21 severe): 0 Source: Developed by Drs. Elan Lowe, Felicita Pedro, Pablo Moss and colleagues, with an educational virginia from [employer]. Physical exam (Primary Care) Vital Signs: Last Vital Signs Pulse 64 10/16/24 08:00 BP 132/60 10/16/24 08:00 Pulse Ox 96 10/16/24 08:00 Oxygen Delivery Method Room Air 10/16/24 08:00 BMI result Body Mass Index 30.5 Tobacco/Smoking Status: Tobacco use Status Tobacco use date assessed 10/16/24 10/16/24 07:58 Patient Tobacco Use Status Former Tobacco user 10/16/24 07:58 e-Cigarette/Vaping Use Never Used 10/16/24 07:58 PHQ-9: PHQ-9 Score PHQ-9: Total score 0 10/16/24 07:58 Depression Screening Interpretation: Negative Thrive Assessment: Date of Thrive Assessment Date Thrive assessed 10/09/24 10/16/24 07:58 Currently or been in a relationship where the following occur: I choose not to answer Coding Level of Care Code Est Pt Level 4 (79875) Complex EM visit Add On G2211 Diagnoses Hypertension, essential I10 Nephropathy N28.9 Lipid disorder E78.9 Coronary artery disease involving [place] coronary artery of [place] heart without angina pectoris I25.10 Coronary Disease-Associated Artery/Lesion type: [place] artery [place] vs. transplanted heart: [place] heart Associated angina: without angina Elevated serum creatinine R79.89 Pain in both feet M79.671; M79.672 Additional Codes PHQ-9 - 82159 - PHQ-9 Billing: Yes ([id number]) Assessment & Plan Assessment & Plan (1) Hypertension, essential: Code(s): I10 - Essential (primary) hypertension Category: Medical (2) Nephropathy: Code(s): N28.9 - Disorder of kidney and ureter, unspecified Category: Medical (3) Lipid disorder: Code(s): E78.9 - Disorder of lipoprotein metabolism, unspecified Category: Medical (4) CAD (coronary artery disease): Comment: No nonobstructive by coronary CTA, September 2021 Code(s): I25.10 - Atherosclerotic heart disease of [place] coronary artery without angina pectoris Category: Medical Qualifiers: Coronary Disease-Associated Artery/Lesion type: [place] artery [place] vs. transplanted heart: [place] heart Associated angina: without angina Qualified Code(s): I25.10 - Atherosclerotic heart disease of [place] coronary artery without angina pectoris (5) Elevated serum creatinine: Code(s): R79.89 - Other specified abnormal findings of blood chemistry Category: Medical (6) Pain in both feet: Code(s): M79.671 - Pain in right foot; M79.672 - Pain in left foot Category: Medical Plan Patient is a 79-year-old gentleman came in for his follow-up appointment Patient is established with Dr. Lewis Nephrology for nephropathy Labs done 05 of October, that is last month showed sodium of 146 Creatinine has worsened to 1.72 With GFR of [address] Lewis only once a year Patient also have a coronary artery disease and he is seeing pipe threading machine operator every other year now BMI is elevated need to lose weight Blood pressure is stable, patient is tolerating amlodipine 5 mg and atenolol chlorthalidone 50-25 mg daily He is also on atorvastatin 80 mg for lipid control and Zetia 10 mg His other medications are doxazosin 2 mg Gabapentin 100 b.i.d. for bilateral feet pain, medication is helping patient And torsemide 10 mg daily through Cardiology office Patient will return in 3 months for follow-up appointment, labs are needed before visit Review of Systems - Cardiovascular: Denies chest pain. Denies swelling of ankles. - Respiratory: Denies shortness of breath. - General: Denies any new problems. Reports feeling like his old self again. - General: No fever no chills - Neurological: No headaches no dizziness - Ear nose throat: No sore throat no hearing difficulty no ear pain - Cardiovascular: No syncope, no chest pain, no palpitations - Gastrointestinal: No nausea vomiting or diarrhea - Endocrine: No polyuria polydipsia no heat intolerance - Genitourinary: No dysuria , no blood in urine Physical Exam General: No acute distress HEENT: No acute findings Neck: Supple Respiratory system: Able to talk in full sentences, no audible wheeze cardiovascular: S1-S2 regular in rate and rhythm, no chest pains Gastrointestinal: No pain Extremities: No new findings, no swelling of ankles CUTTER INSPECTOR: Alert awake oriented x3 motor sensory intact Skin: Normal turgor Orders: Orders Comprehensive Met. Panel 3 Months E78.9 - Disorder of lipoprotein metabolism, unspecified, I10 - Essential (primary) hypertension, I25.10 - Atherosclerotic heart disease of [place] coronary artery without angina pectoris, M79.671 - Pain in right foot, M79.672 - Pain in left foot, N28.9 - Disorder of kidney and ureter, unspecified, R79.89 - Other specified abnormal findings of blood chemistry Complete Blood Count Auto Diff 3 Months E78.9 - Disorder of lipoprotein metabolism, unspecified, I10 - Essential (primary) hypertension, I25.10 - Atherosclerotic heart disease of [place] coronary artery without angina pectoris, M79.671 - Pain in right foot, M79.672 - Pain in left foot, N28.9 - Disorder of kidney and ureter, unspecified, R79.89 - Other specified abnormal findings of blood chemistry
[2024-10-16 08:00] VITALS: BP 132/60; PULSE 64; O2SAT 96; BMI 30.5
== END 2024-10-16 09:56 | disposition home or self-care (01) ==
PROVIDERS: PCP Internal Medicine; Visit Provider Internal Medicine
DX: I10 Essential (primary) hypertension (principal); N28.9 Disorder of kidney and ureter, unspecified; E78.9 Disorder of lipoprotein metabolism, unspecified; I25.10 Atherosclerotic heart disease of native coronary artery without angina pectoris; R79.89 Other specified abnormal findings of blood chemistry; M79.671 Pain in right foot; M79.672 Pain in left foot

== ENCOUNTER → 2024-10-16 07:53 | Outpatient (BNVA) | payer MEDICARE, OTHER, SELFPAY | PROVIDERS: PCP Internal Medicine; Visit Provider Internal Medicine | DX: I10 Essential (primary) hypertension (principal); E78.9 Disorder of lipoprotein metabolism, unspecified; N28.9 Disorder of kidney and ureter, unspecified; I25.10 Atherosclerotic heart disease of native coronary artery without angina pectoris; R79.89 Other specified abnormal findings of blood chemistry; M79.671 Pain in right foot; M79.672 Pain in left foot | CPT/HCPCS: 96127; 99212 ==

== ENCOUNTER → 2024-11-20 08:22 | Outpatient (AMB) ==
--- OUTSIDE RECORDS SUMMARY | 2024-11-20 08:42 | XMS_ITS | Clinical Summary ---
Author Organization [facility] Facility Address [address] [place] [address], [place] [address] Care Team Providers Care Bobtailer Name Role Phone Osmany Camejo MD Primary Care Provider [phone] Allergies No known active allergies Medications amLODIPine (NORVASC) 5 MG tablet Take 5 mg by mouth 1 (one) time each day 2 Active atorvastatin (LIPITOR) 80 MG tablet Take 80 mg by mouth 1 (one) time each day 2 Active ezetimibe (ZETIA) 10 MG tablet Take 10 mg by mouth 1 (one) time each day 2 Active aspirin (ST MELITON) 81 MG EC tablet Take 81 mg by mouth 1 (one) time each day Active ferrous sulfate 325 (65 Fe) MG EC tablet Take 325 mg by mouth in the morning and 325 mg in the evening. Do not crush, chew, or split. . Active Ascorbic Acid (vitamin C) 100 MG tablet Take 100 mg by mouth 1 (one) time each day Active zinc gluconate 50 MG tablet Take 50 mg by mouth 1 (one) time each day Active QUERCETIN PO Take by mouth 1 (one) time each day Active gabapentin (Neurontin) 100 MG capsuleIndication s:Stage 3b chronic kidney disease (HCC),Renal osteodystrophy,Es sential (primary) hypertension Take 2 capsules (200 mg total) by mouth in the morning and 2 capsules (200 mg total) before bedtime. Take 2 capsule (200 mg total)by mouth in the morning and 2 capsul (200 mg ) by mouth at night a total of 400 mg. 360 capsule 3 3 Active atenolol (TENORMIN) 50 MG tablet TAKE 1 TABLET(50 MG) BY MOUTH 1 TIME EACH DAY 30 tablet 11 4 Active torsemide (DEMADEX) 10 MG tablet TAKE 2 TABLETS(20 MG) BY MOUTH EVERY DAY 180 tablet 3 4 Active doxazosin (Cardura) 2 MG tablet Take 1 tablet (2 mg total) by mouth every night 90 tablet 3 4 07/09/20 25 Active Active Problems Problem Noted Date Diagnosed Date Essential (primary) hypertension 04/19/2022 Stage 3b chronic kidney disease 04/19/2022 Renal osteodystrophy 04/19/2022 Encounters Date Type Department Care Team Description 10/05/2024 Orders Only [facility] [address] [facility] [address] [place] [address] Roge Lewis MD from Last 3 Months Family History Medical History Relation Comments Heart disease Father Relation Status Comments Father Social History Tobacco Use Types Packs/Day Years Used Date Smoking Tobacco: Never Smokeless Tobacco: Never Tobacco Cessation:Counseling Given: Not Answered Alcohol Use Standard Drinks/Week Comments Yes 0 (1 standard drink = 0.6 oz pur e alcohol) Sex and Gender Information Value Date Recorded Sex Assigned at Not on file Legal Sex Male 11:43 AM EDT Gender Identity Not on file Sexual Orientation Not on file Last Filed Vital Signs Vital Sign Reading Time Taken Comments Blood Pressure 120/60 12/31/2023 1:44 PM EDT Pulse 67 12/31/2023 1:44 PM EDT Temperature - - Respiratory Rate - - Oxygen Saturation 95% 12/31/2023 1:44 PM EDT Inhaled Oxygen Concentration - - Weight 89.7 kg (197 lb 11.2 oz) 12/31/2023 1:44 PM EDT Height 172.7 cm (5' 8 ) 03/26/2023 1:45 PM EDT Body Mass Index 30.06 03/26/2023 1:45 PM EDT Plan of Treatment Upcoming Encounters Date Type Department Care Team (Late st Contact Info) Description 12/02/2024 Orders Only [facility] [address] [place] [address] Roge Lewis MD [address] [facility] [address] [place] [address] Stage 3b chronic kidney disease (HCC); Renal osteodystrophy; Essential (primary) hypertension 12/30/2024 1:00 PM EDT Office Visit [facility] [address] [address] Roge Lewis MD [address] [address] Health Maintenance Due Date Last Done Comments Pneumococcal Vaccine: 65+ Ye ars (1 of 2 - PCV) 1951 Influenza Vaccine (#1) 2024 Hepatitis B Vaccine Aged Out No longe r eligible based on patient's age to complete this topic Procedures Procedure Name Priority Date/Time Associated Diagnosis Comments PROTEIN / CREATININE RATIO, URINE Routine 10/05/2024 10:59 AM EST ALBUMIN, URINE, RANDOM Routine 10/05/2024 10:59 AM EST URINALYSIS WITH MICROSCOPIC Routine 10/05/2024 10:59 AM EST PTH, INTACT (HC) Routine 10/05/2024 10:4 0 AM EST ALBUMIN Routine 10/05/2024 10:40 AM EST MAGNESIUM Routine 10/05/2024 10:40 AM EST PHOSPHATE ( PHOSPHORUS) Routine 10/05/2024 10:40 AM EST CALCIUM Routine 10/05/2024 10:40 AM EST CREATININE, BLOOD Routine 10/05/2024 10: 40 AM EST BUN Routine 10/05/2024 10:40 AM EST ELECTROLYTE PANEL Routine 10/05/2024 10: 40 AM EST from Last 3 Months Results * Protein, Total, Random Urine w/Creatinine (Protein/Creat Ratio) (10/05/2024 10:59 AM EST) Protein Urine Random 10 <12 mg/dL See order comments Protein/Creatin ine Ratio, Urine 0.13 <0.2 See order comments Comment: The spot urine protein:creatinine ratio may increase to 0.3 during normal . 10/05/2024 10:5 9 AM EST 10/05/2024 10:59 AM EST Roge Lewis MD LAB URINE ORDERABLES Final Re [facility] Performing Organization Address [facility] de Phone Number RANGE See order comments [place] [address] * (ABNORMAL) Albumin, urine, random (10/05/2024 10:59 AM EST) Creatinine, Urine 76.45 mg/dL Se e order comments Urine Microalbumin 39.0 mg/L See order comments Microalbumin/Crea tinine Ratio 51.0(H) <30 ug/mg cr See order comments Comment: ?Albumin/Creatinine Ratio Reference Ranges: ?Normal: < 30 ug/mg creatinine ?Microalbuminuria: ??30 - 300 ug/mg creatinine Clinical Albuminuria: ??> 300 ug/mg creatinine 10/05/2024 10:5 9 AM EST 10/05/2024 10:59 AM EST Roge Lewis MD LAB URINE ORDERABLES Final [facility] Performing Organization Address [facility] de Phone Number [place] See order comments [place] [address] * Urinalysis with microscopic (10/05/2024 10:59 AM EST) Color Urine Yellow See orde r comments Appearance Urine Clear See order comments pH Urine 6.0 5.0 - 9.0 See order comments Glucose Urine Negative Negative mg/dL See order comments Blood, Urine Negative Negative See ord er comments Specific [place] Urine 1.015 1.005 - 1.025 See order comments Protein Urine Negative Neg-Trace mg/dL See order comments Ketones, Urine Negative Negative mg/dL See order comments Nitrite, Urine Negative Negative See o rder comments Leukocyte Esterase Urine Negative Negative See order comments RBC, Urine 0-2 0 - 2 /HPF See orde r comments WBC 0-5 0 - 5 /HPF See order comments Squamous Epithelial, Urine 0-2 0 - 2 /HPF See order comments Bacteria, Urine None Seen None Seen See order comments Hyaline Casts, Urine 0-2 0 - 2 /LPF See order comments 10/05/2024 10:5 9 AM EST 10/05/2024 10:59 AM EST Roge Lewis MD LAB URINE ORDERABLES Final Re sult Performing Organization Address [facility] Co de Phone Number [place] See order comments [place] [address] * (ABNORMAL) Creatinine (10/05/2024 10:40 AM EST) Creatinine Serum 1.72(H) 0.5 - 1.4 mg/dL See order comments eGFR 39 See order comments Comment: Chronic Kidney Disease: ??Estimated GFR < 60 mL/min/1.73m2 Severe Kidney Disease: ??Estimated GFR < 15 mL/min/1.73m2 10/05/2024 10:4 0 AM EST 10/05/2024 10:40 AM EST Roge Lewis MD LAB BLOOD ORDERABLES Final Re sult Performing Organization Address [facility] Co de Phone Number [place] See order comments [place] [address] * (ABNORMAL) PTH, Intact (10/05/2024 10:40 AM EST) Parathyroid Hormone, Intact 150.9(H) 8.7 - 77.1 pg/mL See order comments 10/05/2024 10:4 0 AM EST 10/05/2024 10:40 AM EST us Roge Lewis MD LAB [id number] SOLICITED RESULTS Final Result Performing Organization Address [facility] Co de [facility] See order comments [place] [address] * (ABNORMAL) BUN (10/05/2024 10:40 AM EST) BUN 23(H) 9 - 16 mg/dL See order comments 10/05/2024 10:4 0 AM EST 10/05/2024 10:40 AM EST us Roge Lewis MD LAB BLOOD ORDERABLES Final Re sult Performing Organization Address [facility] Phone Number [place] See order comments [place] [address] * Phosphorus (10/05/2024 10:40 AM EST) Phosphorus, Serum 3.3 2.7 - 4.5 mg/dL See order comments 10/05/2024 10:4 0 AM EST 10/05/2024 10:40 AM EST us Roge Lewis MD LAB BLOOD ORDERABLES Final Re sult Performing Organization Address [facility] Phone Number [place] See order comments [place] [address] * Magnesium (10/05/2024 10:40 AM EST) Magnesium 2.0 1.6 - 2.6 mg/dL See order comments 10/05/2024 10:4 0 AM EST 10/05/2024 10:40 AM EST us Roge Lewis MD LAB BLOOD ORDERABLES Final Re sult Performing Organization Address [facility] de Phone Number [place] See order comments [place] [address] * Calcium (10/05/2024 10:40 AM EST) Calcium 8.8 8.4 - 10.2 mg/dL See order comments 10/05/2024 10:4 0 AM EST 10/05/2024 10:40 AM EST us Roge Lewis MD LAB BLOOD ORDERABLES Final Re sult [place] See order comments [place] [address] * Albumin (10/05/2024 10:40 AM EST) Albumin 3.9 3.5 - 5.0 g/dL See order comments 10/05/2024 10:4 0 AM EST 10/05/2024 10:40 AM EST Roge Lewis MD LAB BLOOD ORDERABLES Final Re sult Performing Organization Address [facility] Co de Phone Number [place] See order comments [place] [address] * (ABNORMAL) Electrolyte panel (10/05/2024 10:40 AM EST) Sodium 146(H) 135 - 145 mmol/L See order comments Potassium 3.8 3.3 - 5.1 mmol/L See order comments Chloride 106 96 - 108 mmol/L See order comments Bicarbonate (CO2) 32(H) 22 - 29 mmol/L See order comments Anion Gap 12 12 - 20 See order comments 10/05/2024 10:4 0 AM EST 10/05/2024 10:40 AM EST Roge Lewis MD LAB BLOOD ORDERABLES Final Re sult Performing Organization Address [facility] Co de [facility] Number [facility] See order comments [place] [address] from Last 3 Months Insurance MEDICARE [facility] MEDICARE [facility] Care Teams Bobtailer Relationship Specialty Start Date End Date Osmany Camejo MD [address] [facility] [place] [id number] PCP - General Internal Medicine 12/31/23
--- OUTSIDE RECORDS SUMMARY | 2024-11-20 08:42 | XMS_ITS | Encounter Summary ---
Author Organization [facility] Address [address] [place] [address] Phone Care Team Providers Care Flaker Operator Name Role Phone Osmany Camejo MD Primary Care Provider [phone] Encounter Details Date Type Department Care Team (Late st Contact Info) Description 03/14/2023 Telephone [facility] [address] [place] [address] Sarah Fitch Social History Tobacco Use Types Packs/Day Years Used Date Smoking Tobacco: Never Smokeless Tobacco: Never Alcohol Use Standard Drinks/Week Comments Yes 0 (1 standard drink = 0.6 oz pur e alcohol) Sex and Gender Information Value Date Recorded Sex Assigned at Not on file Legal Sex Male 11:43 AM EDT Gender Identity Not on file Sexual Orientation Not on file documented as of this encounter Miscellaneous Notes * Telephone Encounter - Sarah Fitch - 03/14/2023 4:42 PM EDT Ok. * Telephone Encounter - Sarah Fitch - 03/14/2023 3:31 PM EDT PT called with complaints of swelling for over three months now on right foot. PT says that it is difficult to walk on and he would like a sooner appointment. Please advise. documented in this encounter Plan of Treatment Upcoming Encounters Date Type Department Care Team (Late st Contact Info) Description 12/02/2024 Orders Only [facility] [address] [place] [address] Roge Lewis MD [address] [address] Stage 3b chronic kidney disease (HCC); Renal osteodystrophy; Essential (primary) hypertension 12/30/2024 1:00 PM EDT Office Visit [facility] [address] [address] Roge Lewis MD [address] [address] documented as of this encounter Procedures Procedure Name Priority Date/Time Associated Diagnosis Comments PROTEIN / CREATININE RATIO, URINE Routine 03/15/2023 11:34 AM EDT ALBUMIN, URINE, RANDOM Routine 03/15/2023 11:34 AM EDT URINALYSIS WITH MICROSCOPIC Routine 03/15/2023 11:34 AM EDT CREATININE, BLOOD Routine 03/15/2023 11: 24 AM EDT VITAMIN D 25 HYDROXY Routine 03/15/2023 11:24 AM EDT CBC AND DIFFERENTIAL Routine 03/15/2023 11:24 AM EDT BUN Routine 03/15/2023 11:24 AM EDT PHOSPHATE ( PHOSPHORUS) Routine 03/15/2023 11:24 AM EDT PTH, INTACT Routine 03/15/2023 11:24 AM EDT MAGNESIUM Routine 03/15/2023 11:24 AM EDT CALCIUM Routine 03/15/2023 11:24 AM EDT ALBUMIN Routine 03/15/2023 11:24 AM EDT ELECTROLYTE PANEL Routine 03/15/2023 11: 24 AM EDT documented in this encounter Results * (ABNORMAL) Protein, Total, Random Urine w/Creatinine (Protein/Creat Ratio) (03/15/2023 11:34 AM EDT) Protein Urine Random 28(H) <12 mg/dL [place] Protein/Creatin ine Ratio, Urine 0.15 <0.2 [place] Comment: The spot urine protein:creatinine ratio may increase to 0.3 during normal . 03/15/2023 11:3 4 AM EDT 03/15/2023 11:34 AM EDT Roge Lewis MD LAB URINE ORDERABLES Final Re sult Performing Organization Address [facility] Co de Phone Number TIFFANYNELLAMARTA * Albumin, urine, random (03/15/2023 11:34 AM EDT) Creatinine, Urine 185.13 mg/dL [place] Urine Microalbumin 159.0 mg/L [place] Microalbumin/Crea tinine Ratio 85.8 ug/mg cr [place] Comment: ?Albumin/Creatinine Ratio Reference Ranges: ?Normal: < 30 ug/mg creatinine ?Microalbuminuria: ??30 - 300 ug/mg creatinine Clinical Albuminuria: ??> 300 ug/mg creatinine 03/15/2023 11:3 4 AM EDT 03/15/2023 11:34 AM EDT Roge Lewis MD LAB URINE ORDERABLES Final Re sult Performing Organization Address [facility] Co de Phone Number TIFFANYNELLAMART[place] * (ABNORMAL) Urinalysis with microscopic (03/15/2023 11:34 AM EDT) Color Urine Yellow [place] Appearance Urine Clear [place] pH Urine 6.0 5.0 - 9.0 [place] Glucose Urine Negative Negative mg/dL [place] Blood, Urine Negative Negative [place] Specific [place] Urine 1.015 1.005 - 1.025 [place] Protein Urine 30 (1+)(A) Neg-Trace mg/dL [place] Ketones, Urine Negative Negative mg/dL [place] Nitrite, Urine Negative Negative [place] Leukocyte Esterase Urine Negative Negative [place] RBC, Urine 0-2 0 - 2 /HPF [place] WBC 0-5 0 - 5 /HPF [place] Squamous Epithelial, Urine 0-2 0 - 2 /HPF [place] Bacteria, Urine None Seen None Seen [place] Hyaline Casts, Urine 0-2 0 - 2 /LPF [place] 03/15/2023 11:3 4 AM EDT 03/15/2023 11:34 AM EDT us Roge Lewis MD LAB URINE ORDERABLES Final Re sult [place] * PTH, Intact (03/15/2023 11:24 AM EDT) Parathyroid Hormone, Intact 59 16 - 77 pg/mL [place] Comment: Interpretive Guide ?Intact PTH ? Calcium ? ------- Normal Parathyroid ?Normal ? Normal Hypoparathyroidism ?Low or Low Normal ?Low Hyperparathyroidism ?? Primary ?Normal or High ? High ?? Secondary ?High ? Normal or Low ?? Tertiary ? High ? High Non-Parathyroid ?? Hypercalcemia ?Low or Low Normal ?High PTHI+Calcium 9.7 8.6 - 10.3 mg/dL [place] Comment: THIS TEST WAS PERFORMED AT: [facility] [address] ??[phone] QUIANA MONAE MD 03/15/2023 11:2 4 AM EDT 03/15/2023 11:24 AM EDT Roge Lewis MD LAB BLOOD ORDERABLES Final Re sult Performing Organization Address [facility] Co de Phone Number NELA * Vitamin D 25 Hydroxy (03/15/2023 11:24 AM EDT) Vitamin D, 25-Hydroxy 54.6 >30 ng/mL [place] Comment: Health Based Reference Values* < 20 ??ng/mL ??Deficient 20-30 ng/mL ??Insufficient > 30 ??ng/mL ??Sufficient *Brian REILLY. N Engl J Med. 2007;357:266-280 Care must be taken in interpreting Vitamin D results from different laboratories and methodologies. ??Published data demonstrated that results from patients undergoing hemodialysis may show a negative bias when tested with various automated 25-OH vitamin D assays when compared to LC-MS/MS. When testing samples from patients whose predominant form of Vitamin D is Vitamin D2, such as patients receiving Vitamin D2 supplementation, results that are subtherapeutic should be confirmed with another method such as LC-MS/MS. 03/15/2023 11:2 4 AM EDT 03/15/2023 11:24 AM EDT Roge Lewis MD LAB BLOOD ORDERABLES Final Re sult Performing Organization Address City/[facility]/ZIP Co de Phone Number [place] * Albumin (03/15/2023 11:24 AM EDT) Albumin 4.2 3.5 - 5.0 g/dL [place] 03/15/2023 11:2 4 AM EDT 03/15/2023 11:24 AM EDT Roge Lewis MD LAB BLOOD ORDERABLES Final Re sult [place] * Magnesium (03/15/2023 11:24 AM EDT) Magnesium 2.1 1.6 - 2.6 mg/dL [place] 03/15/2023 11:2 4 AM EDT 03/15/2023 11:24 AM EDT Roge Lewis MD LAB BLOOD ORDERABLES Final Re sult Performing Organization Address [facility] Co de Phone Number NELA * Phosphorus (03/15/2023 11:24 AM EDT) Pathologist [facility] Phosphorus, Serum 3.9 2.7 - 4.5 mg/dL [place] 03/15/2023 11:2 4 AM EDT 03/15/2023 11:24 AM EDT Roge Lewis MD LAB BLOOD ORDERABLES Final Re sult Performing Organization Address [facility] Co de Phone Number NELA * Calcium (03/15/2023 11:24 AM EDT) Pathologist [facility] Calcium 9.6 8.4 - 10.2 mg/dL [place] 03/15/2023 11:2 4 AM EDT 03/15/2023 11:24 AM EDT Roge Lewis MD LAB BLOOD ORDERABLES Final Re sult Performing Organization Address [facility] Co de Phone Number NELA * (ABNORMAL) Creatinine (03/15/2023 11:24 AM EDT) Pathologist [facility] Creatinine Serum 1.74(H) 0.5 - 1.4 mg/dL [place] eGFR 38 [place] Comment: NOTE: ??For -Gabonese individuals, multiply the result ? by 1.210. Chronic Kidney Disease: ??Estimated GFR < 60 mL/min/1.73m2 Severe Kidney Disease: ??Estimated GFR < 15 mL/min/1.73m2 03/15/2023 11:2 4 AM EDT 03/15/2023 11:24 AM EDT Roge Lewis MD LAB BLOOD ORDERABLES Final Re sult Performing Organization Address [facility]/ZIP Co de Phone Number [place] * (ABNORMAL) BUN (03/15/2023 11:24 AM EDT) BUN 25(H) 9 - 16 mg/dL [place] 03/15/2023 11:2 4 AM EDT 03/15/2023 11:24 AM EDT Roge Lewis MD LAB BLOOD ORDERABLES Final Re sult Performing Organization Address [facility] Co de Phone Number NELA * (ABNORMAL) Electrolyte panel (03/15/2023 11:24 AM EDT) Sodium 143 135 - 145 mmol/L [place] Potassium 4.0 3.3 - 5.1 mmol/L [place] Chloride 101 96 - 108 mmol/L [place] Bicarbonate (CO2) 32(H) 22 - 29 mmol/L [place] Anion Gap 14 12 - 20 [place] 03/15/2023 11:2 4 AM EDT 03/15/2023 11:24 AM EDT Roge Lewis MD LAB BLOOD ORDERABLES Final Re sult Performing Organization Address [facility] Co de Phone Number [place] * (ABNORMAL) CBC and Differential (03/15/2023 11:24 AM EDT) WBC 7.3 4.8 - 10.8 X10*3/uL [place] RBC 4.33(L) 4.60 - 5.80 X10*6/uL [place] Hgb 12.7(L) 14.0 - 18.0 g/dl [place] Hematocrit 38.7(L) 42.0 - 52.0 % [place] MCV 89.4 80.0 - 98.0 fL [place] MCH 29.3 27.0 - 33.0 pg [place] MCHC 32.8 31.0 - 36.0 g/dl [place] RDW 13.2 11.0 - 16.0 % [place] Platelets 292 160 - 400 X10*3/uL [place] MPV 10.3 9.4 - 12.4 fL [place] Neutrophils % Auto 63.1 45 - 73 % [place] Immature Granulocytes 0.3 0.0 - 0.4 % [place] Lymphocytes Relative 22.5 20 - 40 % [place] Monocytes 10.9 2 - 11 % [place] Eosinophils Relative 2.2 0 - 4 % [place] Basophils Relative 1.0 0 - 2 % [place] nRBC Count 0.0 0.0 - 0.2 /100WBC [place] Neutrophils Absolute 4.6 2.0 - 8.3 x10*3/uL [place] Immature Grans (Absolute) 0.02 0.00 - 0.03 X10*3/uL [place] Lymphocytes Absolute 1.7 1.2 - 4.9 X10*3/uL [place] Monocytes Absolute 0.8 0.1 - 1.2 X10*3/uL [place] Eosinophils Absolute 0.2 0.0 - 0.4 X10*3/uL [place] Basophils Absolute 0.1 0.0 - 0.2 X10*3/uL [place] NRBC Absolute 0.000 0.0 - 0.012 X10*3/uL [place] 03/15/2023 11:2 4 AM EDT 03/15/2023 11:24 AM EDT us Roge Lewis MD LAB BLOOD ORDERABLES Final Re sult [place] documented in this encounter Visit Diagnoses Not on filedocumented in this encounter Care Teams Flaker Operator Relationship Specialty Start Date End Date Osmany Camejo MD [address] [place] [address] PCP - General Internal Medicine 12/31/23 documented as of this encounter
--- NOTE | 2024-11-20 08:43 | AM.OFFWIN_ITS ---
Intake Vital Signs 11/20/24 08:44 Weight 189 lb BP 132/80 Blood Pressure Location Rt brachial Position Sitting Pulse 67 Pulse Source Pulse Oximeter Temp 97.8 F Temp Source Oral Pulse Oximetry (%) 95 Oxygen Delivery Method Room Air Intake Visit Reasons: EP bilat clogged ears Intake Note: Patient here for bilat ear blockage that has been present for a couple of weeks and worsening. Patient Tobacco Use Status: Former Tobacco user Allergies No Known Allergies Allergy (Verified 11/20/24 08:47) Do you need a note to return to daycare/school/sports/work: No HPI HPI Comments History of Present Illness Details This is a 79-year-old male who presented to the walk-in clinic complaining of clogged ears bilaterally. He states this has been going on for about 1 week. He has been using [id number] an earwax removal kit without much relief. He denies any otalgia or otorrhea. [facility] Medical History CAD (coronary artery disease) Uncontrolled hypertension No known health problems Family History Father Heart attack Daughter Hypertension Social History Housing: Condominium Alcohol intake: current Alcohol intake frequency: a few times a week Alcohol type: beer Patient Tobacco Use Status: Former Tobacco user Cigarette Packs Per Day: 0.5 Years Smoked: 20 years e-Cigarette/Vaping Use: Never Used Second Hand Smoke Exposure: No Substance Use Type: Marijuana service: Yes Current occupational status: retired Cognitive needs: No Hearing needs: No Vision needs: Yes Review of Systems Const All systems reviewed & are unremarkable except as noted in HPI and below Reports no additional complaints Eyes Reports no additional complaints ENT Reports no additional complaints Card Reports no additional complaints Resp Reports no additional complaints GI Reports no additional complaints Reports no additional complaints Musc Reports no additional complaints Skin/Breast Reports system reviewed and no additional complaints, except as documented Neuro Reports no additional complaints Psych Reports no additional complaints Endo Reports no additional complaints Samy/Lymph Reports no additional complaints Aller/Immun Reports no additional complaints Physical Exam Vital Signs: Last Vital Signs Temp 97.8 F 11/20/24 08:44 Pulse 67 11/20/24 08:44 BP 132/80 11/20/24 08:44 Pulse Ox 95 11/20/24 08:44 Oxygen Delivery Method Room Air 11/20/24 08:44 Const Other: Vital signs reviewed. Constitutional: Non-toxic appearing. No acute distress. Well-developed and well-nourished. HEENT: Normocephalic and atraumatic. Cerumen impaction bilaterally. Skin: Warm and dry. No rashes or lesions noted. Neck: Full and painless range of motion. Cardio: Regular rate. Pulmonary: No respiratory distress. No accessory muscle usage. Musculoskeletal: Normal range of motion in joints throughout the body. No deformity or other signs of injury. Neuro: Alert and oriented x4. Cranial nerves 2-12 grossly intact. No focal deficits appreciated. Psych: Normal mood and affect. Assessment & Plan Assessment & Plan (1) Impacted cerumen of both ears: Code(s): H61.23 - Impacted cerumen, bilateral Plan: This is a 79-year-old male who presented to the walk-in clinic complaining of clogged ears bilaterally. He has been using an [id number] ear wax removal kit without much relief. On physical examination, he has bilateral cerumen impaction. Cerumen removal was attempted via irrigation with mild relief. On re-evaluation, there is some improvement but there does appear to be persistent cerumen impaction bilaterally. I recommended that patient utilize a mixture of hydrogen peroxide and warm water three times daily to soften the cerumen for the next 3 days and follow-up here in 3-4 days for re-evaluation and to re-attempt cerumen removal. Patient and his verbalized understanding and they are in agreement with the plan. Coding Level of Care Code Est Pt Level 3 (99889) Diagnoses Impacted cerumen of both ears H61.23
== END | disposition home or self-care (01) ==

== ENCOUNTER → 2024-11-20 08:22 | Outpatient (BNVA) | DX: H61.23 Impacted cerumen, bilateral (principal) | CPT/HCPCS: 99212 ==

== ENCOUNTER 2025-01-15 07:48 | Outpatient (REF) | payer MEDICARE, OTHER, SELFPAY ==
--- OUTSIDE RECORDS SUMMARY | 2025-01-15 08:55 | XMS_ITS | Encounter Summary ---
Author Organization [facility] Address [address] [place] [address] Phone Care Team Providers Care Product Marketing Director Name Role Phone Osmany Camejo MD Primary Care Provider [phone] Encounter Details Date Type Department Care Team (Late st Contact Info) Description 03/14/2023 Telephone [facility] [address] [place] [address] Sarah Fitch Social History Tobacco [...] Visit [facility] [address] [place] [address] Roge Lewis MD [address] [facility] [address] [place] [address] documented as of this encounter [...] ORDERABLES Final Re sult Performing Organization Address [facility] de Phone Number NELA * Albumin, [...] ORDERABLES Final Re sult Performing Organization Address [facility] de Phone Number NELA * (ABNORMAL) Urinalysis with microscopic (03/15/2023 11:34 AM EDT) Color Urine Yellow [place] Appearance Urine Clear [place] pH Urine 6.0 5.0 - 9.0 [place] Glucose Urine Negative Negative mg/dL [place] Blood, Urine Negative Negative [place] Specific [place] Urine 1.015 1.005 - 1.025 [place] Protein [...] NELA Comment: THIS TEST WAS PERFORMED AT: [facility] [address] [place] [address] ??[phone] QUIANA MONAE MD 03/15/2023 11:2 4 AM EDT 03/15/2023 11:24 AM EDT us Roge Lewis MD LAB BLOOD ORDERABLES Final Re sult Performing Organization Address [facility] de Phone Number HOLDIN[place] * Vitamin D 25 Hydroxy (03/15/2023 11:24 AM EDT) Vitamin D, 25-Hydroxy 54.6 >30 ng/mL [facility] Comment: Health Based Reference Values* < 20 [...] ORDERABLES Final Re sult Performing Organization Address [facility] de Phone Number [place] * Albumin (03/15/2023 11:24 AM EDT) Albumin 4.2 3.5 - 5.0 g/dL [place] 03/15/2023 11:2 4 AM EDT 03/15/2023 11:24 AM EDT Roge Lewis MD LAB BLOOD ORDERABLES Final Re sult Performing Organization Address [facility] Co de Phone Number [place] * Magnesium (03/15/2023 11:24 AM EDT) Magnesium 2.1 1.6 - 2.6 mg/dL [place] 03/15/2023 11:2 4 AM EDT 03/15/2023 11:24 AM EDT Roge Lewis MD LAB BLOOD ORDERABLES Final Re sult Performing Organization Address [facility] de Phone Number TIFFANYDINAH * Phosphorus (03/15/2023 11:24 AM EDT) Phosphorus, Serum 3.9 2.7 - 4.5 mg/dL [place] 03/15/2023 11:2 4 AM EDT 03/15/2023 11:24 AM EDT Roge Lewis MD LAB BLOOD ORDERABLES Final Re sult Performing Organization Address [facility] de Phone Number [facility]FFANYNELLAM[facility] * Calcium (03/15/2023 11:24 AM EDT) Calcium 9.6 8.4 - 10.2 mg/dL [place] 03/15/2023 11:2 4 AM EDT 03/15/2023 11:24 AM EDT Roge Lewis MD LAB BLOOD ORDERABLES Final Re sult Performing Organization Address [facility] de Phone Number TIFFANYDINAH * (ABNORMAL) Creatinine (03/15/2023 11:24 AM EDT) Creatinine Serum 1.74(H) 0.5 - 1.4 mg/dL N[place] eGFR 38 [place] Comment: NOTE: ??For -Algerian individuals, multiply the result ? by 1.210. Chronic Kidney Disease: ??Estimated GFR < 60 mL/min/1.73m2 Severe Kidney Disease: ??Estimated GFR < 15 mL/min/1.73m2 03/15/2023 11:2 4 AM EDT 03/15/2023 11:24 AM EDT Roge Lewis MD LAB BLOOD ORDERABLES Final Re sult Performing Organization Address [facility] de Phone Number NELA * (ABNORMAL) BUN (03/15/2023 11:24 AM EDT) BUN 25(H) 9 - 16 mg/dL [place] 03/15/2023 11:2 4 AM EDT 03/15/2023 11:24 AM EDT Roge Lewis MD LAB BLOOD ORDERABLES Final Re sult Performing Organization Address City/[facility]/ZIP Co de Phone Number NELA * (ABNORMAL) [...] ORDERABLES Final Re sult Performing Organization Address [facility] Co de Phone Number NELA * (ABNORMAL) CBC and Differential (03/15/2023 11:24 AM EDT) Pathologist [facility] WBC 7.3 4.8 - 10.8 X10*3/uL [place] [...] on filedocumented in this encounter Care Teams Product Marketing Director Relationship Specialty Start Date End Date Osmany Camejo MD [address] [place] [address] PCP - General Internal Medicine 12/31/23 documented as of this encounter
--- OUTSIDE RECORDS SUMMARY | 2025-01-15 08:55 | XMS_ITS | Clinical Summary ---
Author Organization [facility] Address [address] [address] Phone Care Team Providers Care Brand Coordinator Name Role Phone Osmany Camejo MD Primary Care Provider Allergies No known active allergies Medications amLODIPine [...] Office Visit [facility] [address] [facility] [address] [place] [address] Roge Lewis MD Stage 3b chronic kidney disease (HCC) (Primary Dx); Renal osteodystrophy; Essential (primary) hypertension 12/25/2024 Documentation Only [facility] [address] [facility] [address] [place] [address] [facility] Archule[place] 12/11/2024 Refill [facility] [address] [place] [address] Mavrin Mccord MD Stage 3b chronic kidney disease (HCC); Renal osteodystrophy; Essential (primary) hypertension 12/02/2024 Orders Only [facility] [address] [place] [address] Roge Lewis MD Stage 3b chronic kidney [...] Visit [facility] [address] [place] [address] Roge Lewis MD [address] [facility] [address] [place] [address] Health Maintenance Due Date Last Done Comments Pneumococcal Vaccine: 65+ Ye ars (1 of 2 - PCV) 1951 Influenza Vaccine (Season Ended) 2025 Hepatitis B Vaccine Aged Out No longe r eligible based on patient's age to complete this topic Insurance MEDICARE [facility] MEDICARE [facility] Care Teams Brand Coordinator Relationship Specialty Start Date End Date Osmany Camejo MD [address] [facility] [place] [address] PCP - General Internal Medicine 12/31/23
[2025-01-15 10:06] LABS: MANUAL DIFF FLAG NO
[2025-01-15 10:23] LABS: Basophils Absolute Auto 0.1 X10*3/uL (0.0-0.2); Basophils Percent Auto 1.3 % (0-2); Eosinophils Absolute Auto 0.4 X10*3/uL (0.0-0.4); Imm Gran Abs Auto 0.02 X10*3/uL (0.00-0.03); Imm Gran Pct Auto 0.3 % (0.0-0.4); Lymphocytes Absolute Auto 1.8 X10*3/uL (1.2-4.9); Lymphocytes Percent Auto 25.3 % (20-40); Mean Corpuscular HGB Conc 32.5 g/dl (31.0-36.0); Mean Corpuscular Hemoglobin 29.5 pg (27.0-33.0); Mean Corpuscular Volume 90.7 fL (80.0-98.0); Mean Platelet Volume 10.7 fL (9.4-12.4); Monocytes Absolute Auto 0.7 X10*3/uL (0.1-1.2); Monocytes Percent Auto 9.8 % (2-11); Neutrophils Absolute Auto 4.1 x10*3/uL (2.0-8.3); Neutrophils Percent Auto 57.3 % (45-73); Platelet Count 270 X10*3/uL (160-400); Red Blood Count 4.41 X10*6/uL (4.60-5.80); Red Cell Distribution Width 13.5 % (11.0-16.0); White Blood Count 7.2 X10*3/uL (4.8-10.8)
[2025-01-15 10:59] LABS: Alanine Aminotransferase 18 U/L (0-40); Alkaline Phosphatase 92 U/L (39-117); Anion Gap 10 (12-20); Aspartate Amino Transferase 26 U/L (5-37); Bilirubin Total 1.1 mg/dL (0.0-1.0); Blood Urea Nitrogen 28 mg/dL (9-16); Carbon Dioxide 30 mmol/L (22-29); Chloride 106 mmol/L (96-108); Estimated Glomerular Filt Rate 40; Glucose Random 125 mg/dL (60-115); Potassium 4.3 mmol/L (3.3-5.1); Sodium 142 mmol/L (135-145); Total Protein 6.7 g/dL (6.5-8.0)
== END 2025-01-15 07:49 | disposition home or self-care (01) ==
LOC: HO.HMGCLDS 07:48
PROVIDERS: PCP Internal Medicine; Visit Provider Internal Medicine
DX: Z00.00 Encounter for general adult medical examination without abnormal findings (principal); I10 Essential (primary) hypertension; I25.10 Atherosclerotic heart disease of native coronary artery without angina pectoris; R79.89 Other specified abnormal findings of blood chemistry; E66.09 Other obesity due to excess calories; N28.9 Disorder of kidney and ureter, unspecified; D63.8 Anemia in other chronic diseases classified elsewhere; G57.93 Unspecified mononeuropathy of bilateral lower limbs; E78.9 Disorder of lipoprotein metabolism, unspecified; M79.671 Pain in right foot; M79.672 Pain in left foot; Z68.30 Body mass index [BMI] 30.0-30.9, adult; Z13.30 Encounter for screening examination for mental health and behavioral disorders, unspecified
CPT/HCPCS: 36415; 80053; 85025; 96127; 99212; 99397

== ENCOUNTER 2025-01-15 07:48 | Outpatient (AMB) | payer MEDICARE, OTHER, SELFPAY ==
--- OUTSIDE RECORDS SUMMARY | 2025-01-15 07:51 | XMS_ITS | Encounter Summary ---
Author Organization [facility] Address [address] [place] [address] Phone Care Team Providers Care Academy Director Name Role Phone Osmany Camejo MD Primary Care Provider [phone] Encounter Details Date Type Department Care Team (Late st Contact Info) Description 03/14/2023 Telephone [facility] [address] [place] [address] Sarah Fitch Social History Tobacco [...] Care Team (Late st Contact Info) Description 09/20/2025 2:00 PM EST Office Visit [facility] [address] [place] [id number] Roge Lewis MD [address] [facility] [address] [place] [address] documented as of this encounter Procedures [...] [place] Protein/Creatin ine Ratio, Urine 0.15 <0.2 [place] Comment: The spot urine protein:creatinine ratio may increase to 0.3 during normal . 03/15/2023 11:3 4 AM EDT 03/15/2023 11:34 AM EDT Roge Lewis MD LAB URINE ORDERABLES Final Re sult Performing Organization Address [facility] de Phone Number [place] * Albumin, urine, random (03/15/2023 11:34 AM EDT) Creatinine, Urine 185.13 mg/dL [place] Urine Microalbumin 159.0 mg/L [place] Microalbumin/Crea tinine Ratio 85.8 ug/mg cr [place] Comment: ?Albumin/Creatinine Ratio Reference Ranges: ?Normal: < 30 ug/mg creatinine ?Microalbuminuria: ??30 - 300 ug/mg creatinine Clinical Albuminuria: ??> 300 ug/mg creatinine 03/15/2023 11:3 4 AM EDT 03/15/2023 11:34 AM EDT Roge Lewis MD LAB URINE ORDERABLES Final Re sult Performing Organization Address [facility] de Phone Number [place] * (ABNORMAL) Urinalysis with microscopic (03/15/2023 11:34 AM EDT) Color Urine Yellow [place] Appearance Urine Clear [place] pH Urine 6.0 5.0 - 9.0 [place] Glucose Urine Negative Negative mg/dL [place] Blood, Urine Negative Negative [place] Specific [place] Urine 1.015 1.005 - 1.025 [place] Protein Urine 30 (1+)(A) Neg-Trace mg/dL [place] Ketones, Urine Negative Negative mg/dL [place] Nitrite, Urine Negative Negative [place] Leukocyte Esterase Urine Negative Negative [place] RBC, Urine 0-2 0 - 2 /HPF [place] WBC 0-5 0 - 5 /HPF [place] Squamous Epithelial, Urine 0-2 0 - 2 /HPF [place] Bacteria, Urine None Seen None Seen [place] Hyaline Casts, Urine 0-2 0 - 2 /LPF [place] 03/15/2023 11:3 4 AM EDT 03/15/2023 11:34 AM EDT Roge Lewis MD LAB URINE ORDERABLES Final Re sult [place] * PTH, Intact (03/15/2023 11:24 AM EDT) Parathyroid Hormone, Intact 59 16 - 77 pg/mL [place] Comment: Interpretive Guide ?Intact PTH ? Calcium ? ------- Normal Parathyroid ?Normal ? Normal Hypoparathyroidism ?Low or Low Normal ?Low Hyperparathyroidism ?? Primary ?Normal or High ? High ?? Secondary ?High ? Normal or Low ?? Tertiary ? High ? High Non-Parathyroid ?? Hypercalcemia ?Low or Low Normal ?High PTHI+Calcium 9.7 8.6 - 10.3 mg/dL [place] Comment: THIS TEST WAS PERFORMED AT: [facility] [address] [place] [address] ??[phone] QUIANA MONAE MD 03/15/2023 11:2 4 AM EDT 03/15/2023 11:24 AM EDT us Roge Lewis MD LAB BLOOD ORDERABLES Final Re sult Performing Organization Address [facility] de Phone Number [place] * Vitamin D 25 Hydroxy (03/15/2023 11:24 AM EDT) Vitamin D, 25-Hydroxy 54.6 >30 ng/mL [facility] Comment: Health Based Reference Values* < 20 [...] ORDERABLES Final Re sult Performing Organization Address [facility] de Phone Number [place] * Albumin (03/15/2023 11:24 AM EDT) Albumin 4.2 3.5 - 5.0 g/dL [place] 03/15/2023 11:2 4 AM EDT 03/15/2023 11:24 AM EDT Roge Lewis MD LAB BLOOD ORDERABLES Final Re sult Performing Organization Address [facility] Co de Phone Number [place] * Magnesium (03/15/2023 11:24 AM EDT) Magnesium 2.1 1.6 - 2.6 mg/dL [place] 03/15/2023 11:2 4 AM EDT 03/15/2023 11:24 AM EDT Roge Lewis MD LAB BLOOD ORDERABLES Final Re sult Performing Organization Address [facility] de Phone Number TIFFANYDINAH * Phosphorus (03/15/2023 11:24 AM EDT) Phosphorus, Serum 3.9 2.7 - 4.5 mg/dL [place] 03/15/2023 11:2 4 AM EDT 03/15/2023 11:24 AM EDT Roge Lewis MD LAB BLOOD ORDERABLES Final Re sult Performing Organization Address [facility] de Phone Number [place]FFANYNELLAMART[place] * Calcium (03/15/2023 11:24 AM EDT) Calcium 9.6 8.4 - 10.2 mg/dL [place] 03/15/2023 11:2 4 AM EDT 03/15/2023 11:24 AM EDT Roge Lewis MD LAB BLOOD ORDERABLES Final Re sult Performing Organization Address [facility] de Phone Number TIFFANYDINAH * (ABNORMAL) Creatinine (03/15/2023 11:24 AM EDT) Creatinine Serum 1.74(H) 0.5 - 1.4 mg/dL [place] eGFR 38 [place] Comment: NOTE: ??For -Burmese individuals, multiply the result ? by 1.210. Chronic Kidney Disease: ??Estimated GFR < 60 mL/min/1.73m2 Severe Kidney Disease: ??Estimated GFR < 15 mL/min/1.73m2 03/15/2023 11:2 4 AM EDT 03/15/2023 11:24 AM EDT Roge Lewis MD LAB BLOOD ORDERABLES Final Re sult Performing Organization Address [facility] de Phone Number [place] * (ABNORMAL) BUN (03/15/2023 11:24 AM EDT) BUN 25(H) 9 - 16 mg/dL [place] 03/15/2023 11:2 4 AM EDT 03/15/2023 11:24 AM EDT Roge Lewis MD LAB BLOOD ORDERABLES Final Re sult Performing Organization Address City/[facility]/ZIP Co de Phone Number [place] * (ABNORMAL) [...] ORDERABLES Final Re sult Performing Organization Address [facility] Co de Phone Number [place] * (ABNORMAL) CBC and Differential (03/15/2023 11:24 AM EDT) Pathologist [facility] WBC 7.3 4.8 - 10.8 X10*3/uL [place] [...] MD LAB BLOOD ORDERABLES Final Re sult [place] documented in this encounter Visit Diagnoses Not on filedocumented in this encounter Care Teams Academy Director Relationship Specialty Start Date End Date Osmany Camejo MD [address] [place] [address] PCP - General Internal Medicine 12/31/23 documented as of this encounter
--- OUTSIDE RECORDS SUMMARY | 2025-01-15 07:51 | XMS_ITS | Clinical Summary ---
Author Organization [facility] Address [address] [address] Phone Care Team Providers Care Sequins Winder Name Role Phone Osmany Camejo MD Primary Care Provider [phone] Allergies No known active allergies Medications amLODIPine [...] mouth 1 (one) time each day Active atenolol (TENORMIN) 50 MG tablet TAKE 1 TABLET(50 MG) BY MOUTH 1 TIME EACH DAY 30 tablet 11 4 Active torsemide (DEMADEX) 10 MG tablet TAKE 2 TABLETS(20 MG) BY MOUTH EVERY DAY 180 tablet 3 4 Active doxazosin (Cardura) 2 MG tablet Take 1 tablet (2 mg total) by mouth every night 90 tablet 3 4 07/09/20 25 Active gabapentin (NEURONTIN) 100 MG capsuleIndication s:Stage 3b chronic kidney disease (HCC),Renal osteodystrophy,Es sential (primary) hypertension TAKE 2 CAPSULE BY MOUTH IN THE MORNING AND 2 CAPSULE BEFORE BEDTIME 360 capsule 3 Active Active Problems Problem Noted Date Diagnosed Date Essential (primary) hypertension 04/19/2022 Stage 3b chronic kidney disease 04/19/2022 Renal osteodystrophy 04/19/2022 Encounters Date Type Department Care Team Description 12/30/2024 1:00 PM EDT Office Visit [facility] [address] [facility] [address] [place] [address] Roge Lewis MD Stage 3b chronic kidney disease (HCC) (Primary Dx); Renal osteodystrophy; Essential (primary) hypertension 12/25/2024 Documentation Only [facility] [address] [facility] [address] [place] [address] [facility] Archuleta [place] 12/11/2024 Refill [facility] [address] [place] [address] Marvin Mccord MD Stage 3b chronic kidney disease (HCC); Renal osteodystrophy; Essential (primary) hypertension 12/02/2024 Orders Only [facility] [address] [place] [address] Roge Lewis MD Stage 3b chronic kidney disease (HCC); Renal osteodystrophy; Essential (primary) hypertension from Last 3 Months Family History Medical [...] Sign Reading Time Taken Comments Blood Pressure 119/59 12/30/2024 1:11 PM EDT Pulse 61 12/30/2024 1:11 PM EDT Temperature - - Respiratory Rate - - Oxygen Saturation 96% 12/30/2024 1:11 PM EDT Inhaled Oxygen Concentration - - Weight 89.2 kg (196 lb 9.6 oz) 12/30/2024 1:11 P M EDT Height 172.7 cm (5' 8 ) 03/26/2023 1:45 PM EDT Body Mass Index 29.89 03/26/2023 1:45 PM EDT Plan of Treatment Upcoming Encounters Date Type Department Care Team (Late st Contact Info) Description 09/20/2025 2:00 PM EST [facility] [address] [place] [address] Roge Lewis MD [address] [facility] [address] [place] [address] Health Maintenance Due Date Last Done Comments Pneumococcal Vaccine: 65+ Ye ars (1 of 2 - PCV) 1951 Influenza Vaccine (Season Ended) 2025 Hepatitis B Vaccine Aged Out No longe r eligible based on patient's age to complete this topic Insurance MEDICARE [facility] MEDICARE [facility] Care Teams Sequins Winder Relationship Specialty Start Date End Date Osmany Camejo MD 1959 [facility] [place] [address] PCP - General Internal Medicine 12/31/23
[2025-01-15 08:02] VITALS: BP 128/72; PULSE 68; O2SAT 98; BMI 31.3
--- NOTE | 2025-01-15 08:02 | A.OFFPC_ITS ---
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 Accompanied by: Self / Same As Patient Allergies No Known Allergies Allergy (Verified 01/15/25 08:02) Medication List - Last Reconciled 01/15/25 by Osmany Camejo MD amlodipine 5 mg PO DAILY 90 days aspirin (Adult Low Dose Aspirin) 81 mg PO DAILY atenolol-chlorthalidone 50-25 mg 1 tab PO DAILY 90 days atorvastatin 80 mg PO DAILY doxazosin 2 mg PO DAILY ezetimibe 10 mg PO DAILY gabapentin 100 mg PO BID torsemide 10 mg PO DAILY Tobacco use date assessed: 10/16/24 Fall risk assessment: No Falls in past year Last assessed Fall Risk: 01/15/25 Dental Screening Dental Screen Date: 10/16/24 HPI Annual PE HPI Details - The patient is a 79-year-old male pres enting for a routine physical examination and review of medications. - Kidney function has been monitored by Dr. Lewis, with past blood work conducted in October and November, though November's results were lost, raising concerns as the last available results indicated worsening function - A history of peripheral neuropathy is present, with symptoms reportedly improving with proper footwear. Gabapentin - The patient has a history of significa nt alcohol use but reports no current excessive consumption, understanding its impact on nerve health. - Blood pressure checks at home indicate stability, but the patient expressed confusion over medications, particularly gabapentin used for neuropathy. - coronary artery disease monitored by Mathew Grimm [facility] Health Maintenance - Regular monitoring of blood pressure a t home. - Encouraged maintaining good hydration and avoiding excessive alcohol consumption. - Reinforced the importance of regular f ootwear to manage peripheral neuropathy. [place] of Care: Dr. Lewis nephrology Dr. Grimm cardiology Medications - Gabapentin: For management of peripher al neuropathy symptoms. - Amlodipine: For hypertension managemen t. - Atenolol-chlorthalidone: For hypertens ion management. - Atorvastatin: For hyperlipidemia, pres cribed by Dr. Grimm. - Doxazosin: For hypertension, prescribe d by Dr. Grimm. - Zetia Patient Instructions - Continue regular monitoring of blood p ressure at home. - Avoid alcohol consumption due to poten tial negative impact on liver and nerve health. - Remain hydrated by drinking adequate w ater. - Schedule an appointment for a blood te st as ordered. - Use appropriate footwear to manage cooper ropathy symptoms. - Prepare a detailed list of current med ications for next visit. Review of Systems - General: No fever no chills - Neurological: No headaches no dizzin ess - Ear nose throat: No sore throat no hearing difficulty no ear pain - Cardiovascular: No syncope, no chest pain, no palpitations - Gastrointestinal: No nausea vomiting or diarrhea - Endocrine: No polyuria polydipsia no heat intolerance - Genitourinary: No dysuria - Skin: No new complaints Physical Exam General: Cooperative, healthy appearing, comfortable, no acute distress Orientation: Patient oriented x3 Head: Normal to inspection Ears: Within normal limit visually Nose: Normal external nose present Face and sinus: Normal facial exam Eyes: Appearance normal, extraocular movement intact pupils reactive Neck: Normal visual inspection and supple Respiratory: Normal respiratory effort and able to speak in complete sentences. Clear to auscultation, no stridor Cardiovascular: S1 and S2 GI: Normal to inspection. Soft to palpation and nontender Skin: Turgor normal, no acute findings Neuro: Patient oriented x3, motor sensory intact, balance intact, tandem failed Extremities: Normal to inspection, no burning sensation in feet, improved comfort with new footwear [facility] Medical History CAD (coronary artery disease) Uncontrolled hypertension No known health problems Surgical History No pertinent past surgical history Family History Father Heart attack Daughter Hypertension Social History Housing: Condominium Alcohol intake: current Alcohol intake frequency: a few times a week Alcohol type: beer Patient Tobacco Use Status: Former Tobacco user Cigarette Packs Per Day: 0.5 Years Smoked: 20 years e-Cigarette/Vaping Use: Never Used Second Hand Smoke Exposure: No Substance Use Type: Marijuana service: Yes Current occupational status: retired Cognitive needs: No Hearing needs: No Vision needs: Yes Questionnaire Thrive Questionnaire Date Thrive assessed: 10/16/24 I am a: Patient What is your living situation today?: I have a steady place to live Within the past 12 months, did the food you bought not last and you didn't have the money to get more?: Often true Within the past 12 months, did you worry whether your food would run out before you got money to buy more?: Often true Do you have trouble paying for medicines?: No Do you have trouble getting transportation to medical appointments?: No Do you have trouble paying your heating and electricity bill?: No Do you have trouble taking care of your child, family member or friend?: No Do you have trouble with day-to-day activities such as bathing, preparing meals, shopping, managing finances, etc.?: No Are you currently unemployed and looking for a job?: No Are you interested in more education?: No Please select the resources that you would like help with: None Currently or been in a relationship where the following occur: I choose not to answer THRIVE Score: 2 YVES-7 AMB Questionnaire YVES-7 Date YVES - 7 assessed: 01/15/25 Feeling nervous, anxious, or on edge: 0 = Not at all Not being able to stop or control worryin = Not at all Worrying too much about different things: 0 = Not at all Trouble relaxin = Not at all Being so restless that it is hard to sit still: 0 = Not at all Becoming easily annoyed or irritable: 0 = Not at all Feeling afraid as if something awful might happen: 0 = Not at all Total YVES-7 score (0-4 normal; 5-9 mild; 10-14 moderate; 15-21 severe): 0 Source: Developed by Drs. Elan Lowe, Felicita Pedro, Pablo Moss and colleagues, with an educational [place] from [employer]. YVES-7 Assessment Billing YVES-7 Assessment Tool: YVES-7 Assessment 75916 Physical exam (Primary Care) Vital Signs: Last Vital Signs Pulse 68 01/15/25 08:02 BP 128/72 01/15/25 08:02 Pulse Ox 98 01/15/25 08:02 Oxygen Delivery Method Room Air 01/15/25 08:02 BMI result Body Mass Index 31.3 Tobacco/Smoking Status: Tobacco use Status Tobacco use date assessed 10/16/24 01/15/25 08:03 Patient Tobacco Use Status Former Tobacco user 01/15/25 08:03 e-Cigarette/Vaping Use Never Used 01/15/25 08:03 Thrive Assessment: Date of Thrive Assessment Date Thrive assessed 10/16/24 01/15/25 08:03 Currently or been in a relationship where the following occur: I choose not to answer Coding Level of Care Code Est Pt Level 3 (83444) Est Pt Prev Care >65y(90119) Diagnoses Encounter for general adult medical examination with abnormal findings Z00.01 Elevated serum creatinine R79.89 Coronary artery disease involving [place] coronary artery of [place] heart without angina pectoris I25.10 Associated angina: without angina Coronary Disease-Associated Artery/Lesion type: [place] artery [place] vs. transplanted heart: [place] heart Class 1 obesity due to excess calories with serious comorbidity and body mass index (BMI) of 30.0 to 30.9 in adult E66.09; Z68.30 Body mass index: BMI 30.0-30.9 Obesity classification: adult class 1 (BMI 30 - 34.9) Serious obesity comorbidity presence: with serious comorbidity Hypertension, essential I10 Nephropathy N28.9 Anemia of chronic disease D63.8 Neuropathy of both feet G57.93 Additional Codes YVES-7 Assessment Billing - YVES-7 Assessment Tool: YVES-7 Assessment 04490 ([id number]) Assessment & Plan Assessment & Plan (1) Encounter for general adult medical examination with abnormal findings: Code(s): Z00.01 - Encounter for general adult medical examination with abnormal findings Category: Medical (2) Elevated serum creatinine: Code(s): R79.89 - Other specified abnormal findings of blood chemistry Category: Medical (3) CAD (coronary artery disease): Comment: No nonobstructive by coronary CTA, September 2021 Code(s): I25.10 - Atherosclerotic heart disease of [place] coronary artery without angina pectoris Category: Medical Qualifiers: Associated angina: without angina Coronary Disease-Associated Artery/Lesion type: [place] artery [place] vs. transplanted heart: [place] heart Qualified Code(s): I25.10 - Atherosclerotic heart disease of [place] coronary artery without angina pectoris (4) Obesity due to excess calories: Code(s): E66.09 - Other obesity due to excess calories Category: Medical Qualifiers: Body mass index: BMI 30.0-30.9 Obesity classification: adult class 1 (BMI 30 - 34.9) Serious obesity comorbidity presence: with serious comorbidity Qualified Code(s): E66.09 - Other obesity due to excess calories; Z68.30 - Body mass index [BMI] 30.0-30.9, adult (5) Hypertension, essential: Code(s): I10 - Essential (primary) hypertension Category: Medical (6) Nephropathy: Code(s): N28.9 - Disorder of kidney and ureter, unspecified Category: Medical (7) Anemia of chronic disease: Code(s): D63.8 - Anemia in other chronic diseases classified elsewhere Category: Medical (8) Neuropathy of both feet: Code(s): G57.93 - Unspecified mononeuropathy of bilateral lower limbs Category: Medical Plan - The patient is a 79-year-old male presenting for a routine physical examination and review of medications. - Kidney function has been monitored by Dr. Lewis, with past blood work conducted in October and November, though November's results were lost, raising concerns as the last available results indicated worsening function - A history of peripheral neuropathy is present, with symptoms reportedly improving with proper footwear. Gabapentin - The patient has a history of significant alcohol use but reports no current excessive consumption, understanding its impact on nerve health. - Blood pressure checks at home indicate stability, but the patient expressed confusion over medications, particularly gabapentin used for neuropathy. - coronary artery disease monitored by Dr. Grimm [facility] Health Maintenance - Regular monitoring of blood pressure at home. - Encouraged maintaining good hydration and avoiding excessive alcohol consumption. - Reinforced the importance of regular footwear to manage peripheral neuropathy. [place] of Care: Dr. Lewis nephrology Dr. Grimm cardiology Medications - Gabapentin: For management of peripheral neuropathy symptoms. - Amlodipine: For hypertension management. - Atenolol-chlorthalidone: For hypertension management. - Atorvastatin: For hyperlipidemia, prescribed by Dr. Grimm. - Doxazosin: For hypertension, prescribed by Dr. Grimm. - Zetia Patient Instructions - Continue regular monitoring of blood pressure at home. - Avoid alcohol consumption due to potential negative impact on liver and nerve health. - Remain hydrated by drinking adequate water. - Schedule an appointment for a blood test as ordered. - Use appropriate footwear to manage neuropathy symptoms. - Prepare a detailed list of current medications for next visit. Orders: Orders Comprehensive Met. Panel Today D63.8 - Anemia in other chronic diseases classified elsewhere, E66.09 - Other obesity due to excess calories, G57.93 - Unspecified mononeuropathy of bilateral lower limbs, I10 - Essential (primary) hypertension, I25.10 - Atherosclerotic heart disease of [place] coronary artery without angina pectoris, N28.9 - Disorder of kidney and ureter, unspecified, R79.89 - Other specified abnormal findings of blood chemistry, Z68.30 - Body mass index [BMI] 30.0-30.9, adult Complete Blood Count Auto Diff Today D63.8 - Anemia in other chronic diseases classified elsewhere, E66.09 - Other obesity due to excess calories, G57.93 - Unspecified mononeuropathy of bilateral lower limbs, I10 - Essential (primary) hypertension, I25.10 - Atherosclerotic heart disease of [place] coronary artery without angina pectoris, N28.9 - Disorder of kidney and ureter, unspecified, R79.89 - Other specified abnormal findings of blood chemistry, Z68.30 - Body mass index [BMI] 30.0-30.9, adult
== END 2025-01-15 08:27 | disposition home or self-care (01) ==
LOC: HO.HMCC 07:49
PROVIDERS: PCP Internal Medicine; Visit Provider Internal Medicine
DX: Z00.00 Encounter for general adult medical examination without abnormal findings (principal); R79.89 Other specified abnormal findings of blood chemistry; E66.09 Other obesity due to excess calories; Z68.30 Body mass index [BMI] 30.0-30.9, adult; I25.10 Atherosclerotic heart disease of native coronary artery without angina pectoris; I10 Essential (primary) hypertension; N28.9 Disorder of kidney and ureter, unspecified; D63.8 Anemia in other chronic diseases classified elsewhere; G57.93 Unspecified mononeuropathy of bilateral lower limbs

== ENCOUNTER 2025-04-20 17:01 | Emergency (ER) | payer MEDICARE, OTHER, SELFPAY ==
--- NOTE | ~2025-04-20 | XR_ITS ---
CLINICAL HISTORY: chest pain 2 view chest x-ray Comparison: None provided Findings: No consolidation or effusion. Normal size heart. No acute fracture. IMPRESSION: 1. No acute findings. This document has been electronically signed by: Marleen Salvador MD on 04/20/2025 19:11:59
[2025-04-20 17:25] VITALS: BP 140/71; PULSE 83; RESP 18; TEMP 37.2; O2SAT 91; BMI 29.6
--- NOTE | 2025-04-20 17:32 | ECG_ITS ---
Test Reason : SOB Blood Pressure : */* mmHG Vent. Rate : 79 BPM Atrial Rate : 79 BPM P-R Int : 156 ms QRS Dur : 86 ms QT Int : 372 ms P-R-T Axes : 59 45 8 degrees QTcB Int : 426 ms Normal sinus rhythm Normal ECG No previous ECGs available Referred By: Ender Ballesteros Electronically Signed By: Charlie Monroy
--- NOTE | 2025-04-20 17:33 | ED_ITS ---
HPI - General Adult General Chief complaint: General Medical Stated complaint: Congestion Time Seen by Provider: 04/20/25 20:07 Source: patient Limitations: no limitations History of Present Illness ED Provider: Marycarmen Bray PA-C HPI narrative: 79-year-old male with a history of COPD, gout, hypertension, obesity, hyperlipidemia, known coronary artery disease who presents with cough and cold symptoms x2 days. Associated nasal congestion, dry repetitive cough, wheezing, postnasal drip. Denies fever. Patient states he feels as if he has strained his left lower back from coughing. Related Data Home Medications ?Medication ?Instructions ?Recorded ?Confirmed aspirin 81 mg tablet,delayed 81 mg PO DAILY 05/05/21 0 01/15/25 release (Adult Low Dose Aspirin) doxazosin 2 mg tablet 2 mg PO DAILY 06/12/2201/15 gabapentin 100 mg capsule 100 mg PO BID 04/03/2301/15 torsemide 10 mg tablet 10 mg PO DAILY 04/03/2302/05 Previous Rx's ?Medication ?Instructions ?Recorded atenolol 50 mg-chlorthalidone 25 1 tab PO DAILY 90 day s #90 tabs 12/28/22 mg tablet ezetimibe 10 mg tablet 10 mg PO DAILY #90 tabs 04/14 01/04 atorvastatin 80 mg tablet 80 mg PO DAILY #90 tabs 05/07 amlodipine 5 mg tablet 5 mg PO DAILY 90 days #90 ta bs 03/30/25 albuterol sulfate 90 mcg/actuation 2 puff inhalation Q 4-6H PRN 04/20/25 aerosol inhaler (Ventolin HFA) shortness of breath or wheezing #8.5 grams azithromycin 250 mg tablet 250 mg PO DAILY 4 days #4 t abs 04/20/25 codeine 10 mg-guaifenesin 100 mg/5 10 ml PO Q4-6H PRN cough #118 mL 04/20/25 mL oral liquid methocarbamol 750 mg tablet 1,500 mg (2 x 750 mg) PO Q 8H PRN 04/20/25 pain #20 tabs prednisone 20 mg tablet 40 mg (2 x 20 mg) PO DAILY # 8 tabs 04/20/25 Allergies Allergy/AdvReac Type Severity Reaction Status Date / Time No Known Allergies Allergy Verified 04/20/25 17:32 Review of Systems 2 Review of Systems: Yes all other systems are reviewed and are negative Constitutional: Constitutional: Denies fatigue and Denies fever(s) ENT: Reports nasal congestion Cardiovascular: Cardiovascular: Denies chest pain and Denies dyspnea Respiratory: Respiratory: Denies chest congestion, Reports cough, Denies dyspnea and Reports wheezing Endocrine: Endocrine: Denies fatigue Allergic/Immunologic: Allergic/Immunologic: Reports wheezing PMFSH Past Medical History Attestation statement: The following information was validated with the patient. Medical History CAD (coronary artery disease) Uncontrolled hypertension No known health problems Surgical History No pertinent past surgical history Family History Family History Father Heart attack Daughter Hypertension Social History Social [facility] Alcohol intake: current Alcohol intake frequency: a few times a week Alcohol type: beer Patient Tobacco Use Status: Former Tobacco user Cigarette Packs Per Day: 0.5 Years Smoked: 20 years Smoked in Last 30 Days: No e-Cigarette/Vaping Use: Never Used Second Hand Smoke Exposure: No Use of substances other than those prescribed or required for medical reasons: Yes Substance Use Type: Marijuana Substance Use Frequency: Occasionally Advance Directives: No Advance Directives Information Provided: Yes Do you have a plan to hurt others: No Plan service: Yes Current occupational status: retired Cognitive needs: No Hearing needs: No Vision needs: Yes Physical Exam ED Vital Signs: Vital Signs - 24 hr 04/20/25 17:25 04/20/25 18:20 04/20/25 19:51 Temperature 98.9 F 99.0 F Pulse Rate 83 88 106 H Respiratory Rate 18 22 H 20 Blood Pressure 140/71 H 129/67 Pulse Oximetry 91 L 94 Oxygen Delivery Method Room Air Room Air BMI result Body Mass Index 29.6 Const Other: Alert well-appearing Orientation/consciousness: patient oriented x3 Resp Other: Nonlabored respirations, scattered expiratory wheezes, dry repetitive cough Back/Spine/Pelvis Other: No palpable tenderness, pain elicited with movement of torso from lying down to sitting up Skin Other: Warm dry no rash Neuro General: patient oriented x3, gait normal, no focal motor deficits and CN's II- XI intact bilaterally Psych Other: Calm cooperative Course Course Course Narrative: RME: 79-year-old male history of ESRD presents to ED for coughing, nasal congestion and left flank pain that began since yesterday. Patient is hypoxic age 92% on room air. Lungs are tight. Labs EKG chest x-ray ED bronchodilator ordered. Negative for lower extremity swelling or pitting edema. Charge nurse made aware Medications Administered Discontinued Medications Generic Name Dose Route Start Last Admin Trade Name Freq PRN Reason Stop Dose Admin Azithromycin 500 mg 04/20/25 20:48 04/20/25 21:10 Azithromycin 500 Mg Tablet PO 04/20/25 20:49 500 mg ONCE ONE Administration Albuterol Sulfate 2.5 mg/ 0 mg 04/20/25 18:14 04/20/25 18:19 Albuterol/Ipratropium 3 ml INHALE 04/20/25 18:15 1 dose ONCE ONE Administration Guaifenesin/Codeine Phosphate 10 ml 04/20/25 20:54 04/20/25 21:10 Guaifen/Codeine Sf 200/20/10ml 10 Ml Liquid PO 04/20/25 20:55 10 ml ONCE ONE Administration Sodium Chloride 1,000 mls @ 999 mls/hr 04/20/25 21:00 04/20/25 22:16 Ns IV 04/20/25 22:00 Infused .Q1H1M BEATRIZ Infusion Methocarbamol 1,500 mg 04/20/25 20:53 04/20/25 21:10 Methocarbamol 750 Mg Tablet PO 04/20/25 20:54 1,500 mg ONCE ONE Administration Prednisone 40 mg 04/20/25 20:48 04/20/25 21:09 Prednisone 20 Mg Tablet PO 04/20/25 20:49 40 mg ONCE ONE Administration Medical Decision Making Medical Decision Making [facility] Narrative: 79-year-old male with a history of COPD, gout, hypertension, obesity, hyperlipidemia, known coronary artery disease who presents with cough and cold symptoms x2 days. Associated nasal congestion, dry repetitive cough, wheezing, postnasal drip. Denies fever. Patient states he feels as if he has strained his left lower back from coughing. Problem: COPD History: Per patient I have considered the following differential diagnoses: COPD exacerbation, bronchitis, pneumonia, viral syndrome , ACS Plan: Screening labs including viral panel and chest x-ray were ordered from triage, no pneumonia, we will be treating the patient for bronchitis. He no longer smokes. We will be adding on muscle relaxant for his discomfort, steroid, and a Z-Brian. The patient is not complaining of chest pain, ACS was considered not sure why, troponin EKG were ordered. I have independently reviewed the following tests: Labs: No leukocytosis, not anemic, no electrolyte abnormality noted, creatinine subtly bumped from his baseline, we will give IV fluid,..... Troponin flat x2, viral panel negative EKG: Normal sinus rhythm, rate of 79, no ischemic changes no ectopy QTC 4-6 Chest x-ray:Findings: No consolidation or effusion. Normal size heart. No acute fracture. IMPRESSION: 1. No acute findings. Lab Data 04/20/25 17:50 04/20/25 17:50 Labs: Lab Results 04/20/25 04/20/25 04/20/25 Range/Units 17:50 19:58 20:43 WBC 10.2 (4.8-10.8) X10*3/uL RBC 4.32 L (4.60-5.80) X10*6/uL Hgb 13.0 L (14.0-18.0) g/dl Hct 38.2 L (42.0-52.0) % MCV 88.4 (80.0-98.0) fL MCH 30.1 (27.0-33.0) pg MCHC 34.0 (31.0-36.0) g/dl RDW 13.1 (11.0-16.0) % Plt Count 277 (160-400) X10*3/uL MPV 9.3 L (9.4-12.4) fL Immature Gran % (Auto) 0.6 H (0.0-0.4) % Neut % (Auto) 75.2 H (45-73) % Lymph % (Auto) 9.9 L (20-40) % [place] % (Auto) 13.5 H (2-11) % Eos % (Auto) 0.3 (0-4) % Baso % (Auto) 0.5 (0-2) % Lymph # (Auto) 1.0 L (1.2-4.9) X10*3/uL [place] # (Auto) 1.4 H (0.1-1.2) X10*3/uL Eos # (Auto) 0.0 (0.0-0.4) X10*3/uL Baso # (Auto) 0.1 (0.0-0.2) X10*3/uL Abs Immat Gran (auto) 0.06 H (0.00-0.03) X10*3/uL Absolute Neuts (auto) 7.7 (2.0-8.3) x10*3/uL Absolute Nucleated RBC 0.000 (0.0-0.012) X10*3/uL Nucleated RBC % (auto) 0.0 (0.0-0.2) /100WBC Sodium 141 (135-145) mmol/L Potassium 3.8 (3.3-5.1) mmol/L Chloride 100 (96-108) mmol/L Carbon Dioxide 29 (22-29) mmol/L Anion Gap 16 (12-20) BUN 27 H (9-16) mg/dL Creatinine 1.89 H (0.5-1.4) mg/dL Estim Creat Clear Calc 34.2 Estimated GFR 35 Random Glucose 160 H (60-115) mg/dL Calcium 9.7 D (8.4-10.2) mg/dL Total Bilirubin 1.3 H (0.0-1.0) mg/dL AST 36 (5-37) U/L ALT 14 (0-40) U/L Alkaline Phosphatase 95 (39-117) U/L Troponin I High Sens 11.8 15.2 (<3.5-35.0) ng/L B-Natriuretic Peptide 21 (<100) pg/mL Total Protein 7.7 (6.5-8.0) g/dL Albumin 4.4 (3.5-5.0) g/dL Urine Color Dark Yellow Urine Appearance Clear Urine pH 5.0 (5.0-9.0) Ur Specific [place] 1.020 (1.005-1.025) Urine Protein 300 (3+) H (Neg-Trace) mg/dL Urine Glucose (UA) Negative (Negative) mg/dL Urine Ketones Trace (Negative) mg/dL Urine Blood Negative (Negative) Urine Nitrite Negative (Negative) Ur Leukocyte Esterase Negative (Negative) Urine RBC 0-2 (0-2) /HPF Urine WBC 0-5 (0-5) /HPF Ur Squamous Epith Cells 0-2 (0-2) /HPF Urine Bacteria None Seen (None Seen) Hyaline Casts >20 (0-2) /LPF Influenza Type A (PCR) NEGATIVE (Negative) Influenza Type B (PCR) NEGATIVE (Negative) RSV RNA Qual (PCR) NEGATIVE (Negative) SARS-CoV-2 RNA (RT-PCR) NEGATIVE (Negative) S. pyogenes GrpA HANNA Negative (Negative) Discharge Plan Discharge Clinical Impression: Bronchitis Patient Disposition: Home, Self-Care Instructions: Acute Bronchitis (ED) Additional Instructions: You are being treated for bronchitis. All of your screening labs were normal including 2 cardiac enzymes. There were no concerning changes on your EKG in the chest x-ray is clear. You were screened for influenza RSV and COVID, the viral panel was negative. See home care instructions. Use the inhaler as needed. Use the overnight cough suppressant before bed it can cause drowsiness. Use the Mucinex during the day. Take the methocarbamol as needed for back pain. Take the steroid as directed. Take the zpak as directed. Follow up with your primary care provider as needed. Prescriptions: New prednisone 20 mg tablet 40 mg PO DAILY Qty: 8 0RF methocarbamol 750 mg tablet 1,500 mg PO Q8H PRN (Reason: pain) Qty: 20 0RF albuterol sulfate [Ventolin HFA] 90 mcg/actuation HFA aerosol inhaler 2 puff inhalation Q4-6H PRN (Reason: shortness of breath or wheezing) Qty: 8.5 0RF azithromycin 250 mg tablet 250 mg PO DAILY 4 Days Qty: 4 0RF Rx Instructions: start on day 2 of therapy codeine-guaifenesin 10-100 mg/5 mL liquid 10 ml PO Q4-6H PRN (Reason: cough) Qty: 118 0RF No Action atenolol-chlorthalidone 50-25 mg tablet 1 tab PO DAILY 90 Days Qty: 90 0RF ezetimibe 10 mg tablet 10 mg PO DAILY Qty: 90 3RF atorvastatin 80 mg tablet 80 mg PO DAILY Qty: 90 3RF amlodipine 5 mg tablet 5 mg PO DAILY 90 Days Qty: 90 0RF aspirin [Adult Low Dose Aspirin] 81 mg tablet,delayed release (DR/EC) 81 mg PO DAILY doxazosin 2 mg tablet 2 mg PO DAILY torsemide 10 mg tablet 10 mg PO DAILY gabapentin 100 mg capsule 100 mg PO BID Interventions: ED Discharge Assessment Last Done: 04/20/25 22:51 Discharge Date/Time: 04/20/25 22:57 Print Language: [place] Islander
--- OUTSIDE RECORDS SUMMARY | 2025-04-20 17:51 | XMS_ITS | Clinical Summary ---
Author Organization [facility] Address [address] [address] Phone Care Team Providers Care Pediatric Physical Therapy Assistant Name Role Phone Osmany Camejo MD Primary Care Provider [phone] Allergies No known active allergies Medications amLODIPine (NORVASC) 5 MG tablet Take 5 mg by mouth 1 (one) time each day 02/23/20 22 Active atorvastatin (LIPITOR) 80 MG tablet Take 80 mg by mouth 1 (one) time each day 04/03/20 22 Active ezetimibe (ZETIA) 10 MG tablet Take 10 mg by mouth 1 (one) time each day 04/13/20 22 Active aspirin (ST MELITON) 81 MG EC [...] mouth 1 (one) time each day Active doxazosin (Cardura) 2 MG tablet Take 1 tablet (2 mg total) by mouth every night 90 tablet 3 07/09/20 24 025 Active gabapentin (NEURONTIN) 100 MG capsuleIndicatio ns:Stage 3b chronic kidney disease (HCC),Renal osteodystrophy,E ssential (primary) hypertension TAKE 2 CAPSULE BY MOUTH IN THE MORNING AND 2 CAPSULE BEFORE BEDTIME 360 capsule 3 12/11/19 25 Active atenolol (TENORMIN) 50 MG tablet TAKE 1 TABLET BY MOUTH DAILY 30 tablet 11 04/04/20 25 Active torsemide (DEMADEX) 10 MG tablet Take 2 tablets (20 mg total) by mouth 1 (one) time each day 180 tablet 3 04/04/20 25 Active atenolol (TENORMIN) 50 MG tablet TAKE 1 TABLET(50 MG) BY MOUTH 1 TIME EACH DAY 30 tablet 11 03/09/20 24 025 Discontinued torsemide (DEMADEX) 10 MG tablet TAKE 2 TABLETS(20 MG) BY MOUTH EVERY DAY 180 tablet 3 03/13/20 24 025 Discontinued(Re order (does not appear on AVS)) torsemide (DEMADEX) 10 MG tablet Take 2 tablets (20 mg total) by mouth 1 (one) time each day 180 tablet 3 04/02/20 25 025 Discontinued(Re order (does not appear on AVS)) Active Problems Problem Noted Date Diagnosed Date Essential (primary) hypertension 04/19/2022 Stage 3b chronic kidney disease 04/19/2022 Renal osteodystrophy 04/19/2022 Encounters Date Type Department Care Team Description 04/02/2025 Refill [facility] [address] [phone] Sarah Jones 04/02/2025 Refill [facility] [address] [phone] Sharla Trinidad MA 04/01/2025 Refill [facility] [address] [phone] Casey Epstein MD 04/01/2025 Office Communication [facility] [address] [phone] Roge Lewis MD from Last 3 Months [...] Visit [facility] [address] [place] [address] [place] [phone] Roge Lewis MD [id number] [facility] [address] [place] [address] Health Maintenance Due Date Last Done Comments Pneumococcal Vaccine: 50+ Ye ars (1 of 2 - PCV) 1966 Influenza Vaccine (#1) 2025 Hepatitis B Vaccine Aged Out No longe r eligible based on patient's age to complete this topic Insurance Medicare [facility] Medicare [facility] Care Teams Pediatric Physical Therapy Assistant Relationship Specialty Start Date End Date Osmany Camejo MD [address] [place] [address] PCP - General Internal Medicine 12/31/23
[2025-04-20 17:55] LABS: MANUAL DIFF FLAG NO
[2025-04-20 17:56] LABS: Hematocrit 38.2 % (42.0-52.0); Hemoglobin 13.0 g/dl (14.0-18.0); Imm Gran Abs Auto 0.06 X10*3/uL (0.00-0.03); Imm Gran Pct Auto 0.6 % (0.0-0.4); Lymphocytes Absolute Auto 1.0 X10*3/uL (1.2-4.9); Mean Corpuscular HGB Conc 34.0 g/dl (31.0-36.0); Mean Corpuscular Hemoglobin 30.1 pg (27.0-33.0); Mean Corpuscular Volume 88.4 fL (80.0-98.0); NRBC Abs Auto 0.000 X10*3/uL (0.0-0.012); NRBC Pct Auto 0.0 /100WBC (0.0-0.2); Platelet Count 277 X10*3/uL (160-400); Red Blood Count 4.32 X10*6/uL (4.60-5.80); White Blood Count 10.2 X10*3/uL (4.8-10.8)
[2025-04-20 18:04] LABS: IDNOW Serial# 55D5AD1C; Strep A Nucleic Acid Negative (Negative)
[2025-04-20 18:11] LABS: Alanine Aminotransferase 14 U/L (0-40); Albumin Level 4.4 g/dL (3.5-5.0); Alkaline Phosphatase 95 U/L (39-117); Anion Gap 16 (12-20); Aspartate Amino Transferase 36 U/L (5-37); Blood Urea Nitrogen 27 mg/dL (9-16); Calcium 9.7 mg/dL (8.4-10.2); Carbon Dioxide 29 mmol/L (22-29); Chloride 100 mmol/L (96-108); Creatinine Clr Calc Pharmacy 34.2; Estimated Glomerular Filt Rate 35; Potassium 3.8 mmol/L (3.3-5.1); Sodium 141 mmol/L (135-145); Total Protein 7.7 g/dL (6.5-8.0)
[2025-04-20 18:17] LABS: B Type Natriuretic Peptide 21 pg/mL (<100)
[2025-04-20 18:18] LABS: Troponin-I High Sensitivity 11.8 ng/L (<3.5-35.0)
[2025-04-20] MEDS: Albuterol Sulfate 2.5 MG, Albuterol/Iprat 2.5/0.5MG 3 ML 3 ML INHALE (18:19)
[2025-04-20 18:20] VITALS: PULSE 88; RESP 22; O2SAT 92
[2025-04-20 18:33] LABS: Resp Syncy Virus RNA Qual PCR NEGATIVE (Negative); SARS COV2 PCR INHOUSE NEGATIVE (Negative)
[2025-04-20 19:51] VITALS: BP 129/67; PULSE 106; RESP 20; TEMP 37.2; O2SAT 94
[2025-04-20 20:12] LABS: Appearance Urine Clear; Glucose Urine UA Negative (Negative); PH 5.0 (5.0-9.0); Specific Gravity - Urine 1.020 (1.005-1.025); UMIC TRIGGER UACC YES
[2025-04-20] MEDS: guaiFEN/Codeine SF 200/20/10ML 10 ML LIQUID PO (21:10)
[2025-04-20 21:15] LABS: Troponin-I High Sensitivity 15.2 ng/L (<3.5-35.0)
[2025-04-20 22:51] VITALS: BP 129/67; PULSE 106; RESP 20; TEMP 37.2; O2SAT 94
== END 2025-04-20 22:57 | disposition home or self-care (01) ==
PROVIDERS: Physician Assistant; Physician Assistant Medical; Emergency Provider Emergency Medicine; PCP Internal Medicine
DX: J40 Bronchitis, not specified as acute or chronic (principal); R05.9 Cough, unspecified; I10 Essential (primary) hypertension; E78.5 Hyperlipidemia, unspecified; Z03.818 Encounter for observation for suspected exposure to other biological agents ruled out
CPT/HCPCS: 36415; 71046; 80053; 81001; 83880; 84484; 85025; 87637; 87651; 93005; 94640; 96360; 99284; 99285

== ENCOUNTER → 2025-04-20 17:32 | Outpatient (BNV) | payer MEDICARE, OTHER, SELFPAY | PROVIDERS: Emergency Provider Emergency Medicine; PCP Internal Medicine; Visit Provider Internal Medicine Cardiovascular Disease | DX: R06.02 Shortness of breath (principal) | CPT/HCPCS: 93010 ==

== ENCOUNTER → 2025-04-20 17:34 | Outpatient (BNV) | payer MEDICARE, OTHER, SELFPAY | PROVIDERS: PCP Internal Medicine; Visit Provider Nuclear Medicine | DX: R07.9 Chest pain, unspecified (principal) | CPT/HCPCS: 71046 ==

== ENCOUNTER 2025-05-19 08:28 | Outpatient (AMB) | payer MEDICARE, OTHER, SELFPAY ==
[2025-05-19 08:31] VITALS: BP 118/70; PULSE 63; O2SAT 95; BMI 29.3
--- NOTE | 2025-05-19 08:31 | A.OFFPC_ITS ---
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 Accompanied by: Self / Same As Patient Allergies No Known Allergies Allergy (Verified 05/19/25 08:31) Medication List - Last Reconciled 05/19/25 by Osmany Camejo MD amlodipine 5 mg PO DAILY 90 days aspirin (Adult Low Dose Aspirin) 81 mg PO DAILY atenolol-chlorthalidone 50-25 mg 1 tab PO DAILY 90 days atorvastatin 80 mg PO DAILY doxazosin 2 mg PO DAILY ezetimibe 10 mg PO DAILY gabapentin 100 mg PO BID torsemide 10 mg PO DAILY Tobacco use date assessed: 10/16/24 Fall risk assessment: No Falls in past year Last assessed Fall Risk: 05/19/25 Dental Screening Dental Screen Date: 10/16/24 HPI 3 months f/up HPI Details Ongoing care follow-up - The patient is a 80-year-old male pres enting with neuropathy and osteoarthritis. - Neuropathy symptoms include burning se nsation, tingling, and pins and needles feeling, reported as occurring in the feet. - Difficulty arises in the morning; when the patient stands, a bruised sensation is felt, which lessens upon movement. - Osteoarthritis causes morning stiffnes s and significant pain, prompting occasional use of a walker for support. - Pain described as severe upon waking, with some days being unable to walk without aid. - Infrequent use of pain-relief modaliti es such as Epsom salt soaks; effectiveness not reported. 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 - Alcohol use: occasional consumption of beer and wine, not daily. - Previous history of being physically a ctive, including activities like hiking and softball. - Engages in beach walks when physically possible. Medications - Gabapentin: For management of peripher al neuropathy symptoms. - Amlodipine: For hypertension managemen t. - Atenolol-chlorthalidone: For hypertens ion management. - Atorvastatin: For hyperlipidemia, pres cribed by Dr. Grimm. - Doxazosin: For hypertension, prescribe d by Dr. Grimm. - Zetia Problem List - Neuropathy - Osteoarthritis - Chronic Kidney Disease - Iron Deficiency Anemia - Hypertension - Coronary Artery Disease - Hearing Impairment - Elevated Uric Acid Level - Hyperlipidemia - Overweight status Diagnostic results - Labs: Hemoglobin is stable at 13, magnus cative of iron deficiency (microcytic); worsening creatinine denoting deterioration in kidney function; electrolytes stable. [place] of Care - Follows with Dr. Lewis for kidney mon itoring and Dr. Lantigua for heart care. Patient Instructions - Take Tylenol Arthritis with breakfast for osteoarthritis pain, ensure taken with food. - Hydrate adequately with water, limit a lcohol intake. - Monitor kidney function as lab results show slight worsening. - Follow up with Dr. Lewis for kidney m anagement review. - follow-up 4 months Review of Systems General: No fever no chills neurological: No headaches no dizziness ear nose throat: No sore throat no hearing difficulty no ear pain cardiovascular: No syncope, no chest pain, no palpitations gastrointestinal: No nausea vomiting or diarrhea endocrine: No polyuria polydipsia no heat intolerance genitourinary: No dysuria skin: No new complaints Physical Exam general: No acute distress HEENT: No acute findings neck: Supple respiratory system: Able to talk in full sentences, no audible wheeze no stridor cardiovascular: S1-S2 RRR gastrointestinal: No pain extremities: Osteoarthritis multiple joints 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 Alcohol intake: current Alcohol intake frequency: a few times a week Alcohol type: beer Patient Tobacco Use Status: Former Tobacco user Cigarette Packs Per Day: 0.5 Years Smoked: 20 years e-Cigarette/Vaping Use: Never Used Second Hand Smoke Exposure: No Substance Use Type: Marijuana service: Yes Current occupational status: retired Cognitive needs: No Hearing needs: No Vision needs: Yes Questionnaire Thrive Questionnaire Date Thrive assessed: 05/19/25 I am a: Patient What is your living situation today?: I have a steady place to live Within the past 12 months, did the food you bought not last and you didn't have the money to get more?: Often true Within the past 12 months, did you worry whether your food would run out before you got money to buy more?: Often true Do you have trouble paying for medicines?: No Do you have trouble getting transportation to medical appointments?: No Do you have trouble paying your heating and electricity bill?: No Do you have trouble taking care of your child, family member or friend?: No Do you have trouble with day-to-day activities such as bathing, preparing meals, shopping, managing finances, etc.?: No Are you currently unemployed and looking for a job?: No Are you interested in more education?: No Please select the resources that you would like help with: None Currently or been in a relationship where the following occur: I choose not to answer THRIVE Score: 2 YVES-7 AMB Questionnaire YVES-7 Date YVES - 7 assessed: 01/15/25 Source: Developed by Drs. Elan Lowe, Felicita Pedro, Pablo Moss and colleagues, with an educational [place] from [employer]. Physical exam (Primary Care) Vital Signs: Last Vital Signs Pulse 63 05/19/25 08:31 BP 118/70 05/19/25 08:31 Pulse Ox 95 05/19/25 08:31 Oxygen Delivery Method Room Air 05/19/25 08:31 BMI result Body Mass Index 29.3 Tobacco/Smoking Status: Tobacco use Status Tobacco use date assessed 10/16/24 05/19/25 08:33 Patient Tobacco Use Status Former Tobacco user 05/19/25 08:33 e-Cigarette/Vaping Use Never Used 05/19/25 08:33 Thrive Assessment: Date of Thrive Assessment Date Thrive assessed 05/19/25 05/19/25 08:33 Currently or been in a relationship where the following occur: I choose not to answer Coding Level of Care Code Est Pt Level 5 (18967) Diagnoses Neuropathy of both feet G57.93 Elevated serum creatinine R79.89 Coronary artery disease involving [place] coronary artery of [place] heart without angina pectoris I25.10 Coronary Disease-Associated Artery/Lesion type: [place] artery [place] vs. transplanted heart: [place] heart Associated angina: without angina Class 1 obesity due to excess calories with serious comorbidity and body mass index (BMI) of 30.0 to 30.9 in adult E66.09; Z68.30 Obesity classification: adult class 1 (BMI 30 - 34.9) Serious obesity comorbidity presence: with serious comorbidity Body mass index: BMI 30.0-30.9 Hypertension, essential I10 Nephropathy N28.9 Anemia of chronic disease D63.8 Osteoarthritis involving multiple joints on both sides of body M15.9 Time Spent (min) 40 Comment Reviewing chart/labs/civq-zi-wptm with patient and /coordination of care Assessment & Plan Assessment & Plan (1) Neuropathy of both feet: Code(s): G57.93 - Unspecified mononeuropathy of bilateral lower limbs Category: Medical (2) Elevated serum creatinine: Code(s): R79.89 - Other specified abnormal findings of blood chemistry Category: Medical (3) CAD (coronary artery disease): Comment: No nonobstructive by coronary CTA, September 2021 Code(s): I25.10 - Atherosclerotic heart disease of [place] coronary artery without angina pectoris Category: Medical Qualifiers: Coronary Disease-Associated Artery/Lesion type: [place] artery [place] vs. transplanted heart: [place] heart Associated angina: without angina Qualified Code(s): I25.10 - Atherosclerotic heart disease of [place] coronary artery without angina pectoris (4) Obesity due to excess calories: Code(s): E66.09 - Other obesity due to excess calories Category: Medical Qualifiers: Obesity classification: adult class 1 (BMI 30 - 34.9) Serious obesity comorbidity presence: with serious comorbidity Body mass index: BMI 30.0-30.9 Qualified Code(s): E66.09 - Other obesity due to excess calories; Z68.30 - Body mass index [BMI] 30.0-30.9, adult (5) Hypertension, essential: Code(s): I10 - Essential (primary) hypertension Category: Medical (6) Nephropathy: Code(s): N28.9 - Disorder of kidney and ureter, unspecified Category: Medical (7) Anemia of chronic disease: Code(s): D63.8 - Anemia in other chronic diseases classified elsewhere Category: Medical (8) Osteoarthritis involving multiple joints on both sides of body: Code(s): M15.9 - Polyosteoarthritis, unspecified Category: Medical Plan Ongoing care follow-up - The patient is a 80-year-old male presenting with neuropathy and osteoarthritis. - Neuropathy symptoms include burning sensation, tingling, and pins and needles feeling, reported as occurring in the feet. - Difficulty arises in the morning; when the patient stands, a bruised sensation is felt, which lessens upon movement. - Osteoarthritis causes morning stiffness and significant pain, prompting occasional use of a walker for support. - Pain described as severe upon waking, with some days being unable to walk without aid. - Infrequent use of pain-relief modalities such as Epsom salt soaks; effectiveness not reported. 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 - Alcohol use: occasional consumption of beer and wine, not daily. - Previous history of being physically active, including activities like hiking and softball. - Engages in beach walks when physically possible. Medications - Gabapentin: For management of peripheral neuropathy symptoms. - Amlodipine: For hypertension management. - Atenolol-chlorthalidone: For hypertension management. - Atorvastatin: For hyperlipidemia, prescribed by Dr. Grimm. - Doxazosin: For hypertension, prescribed by Dr. Grimm. - Zetia Problem List - Neuropathy - Osteoarthritis - Chronic Kidney Disease - Iron Deficiency Anemia - Hypertension - Coronary Artery Disease - Hearing Impairment - Elevated Uric Acid Level - Hyperlipidemia - Overweight status Diagnostic results - Labs: Hemoglobin is stable at 13, indicative of iron deficiency (microcytic); worsening creatinine denoting deterioration in kidney function; electrolytes stable. [place] Gap of Care - Follows with Dr. Lewis for kidney monitoring and Dr. Lantigua for heart care. Patient Instructions - Take Tylenol Arthritis with breakfast for osteoarthritis pain, ensure taken with food. - Hydrate adequately with water, limit alcohol intake. - Monitor kidney function as lab results show slight worsening. - Follow up with Dr. Lewis for kidney management review. - follow-up 4 months
--- OUTSIDE RECORDS SUMMARY | 2025-05-19 08:39 | XMS_ITS | Clinical Summary ---
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 Name Role Phone Osmany Camejo MD Primary Care Provider [phone] Allergies No known active allergies Medications amLODIPine [...] 2 CAPSULE BEFORE BEDTIME 360 capsule 3 5 Active atenolol (TENORMIN) 50 MG tablet TAKE 1 TABLET BY MOUTH DAILY 30 tablet 11 5 Active torsemide (DEMADEX) 10 MG tablet Take 2 tablets (20 mg total) by mouth 1 (one) time each day 180 tablet 3 Active Active Problems Problem Noted Date Diagnosed Date Essential (primary) hypertension 04/19/2022 Stage 3b chronic kidney disease 04/19/2022 Renal osteodystrophy 04/19/2022 Encounters Date Type Department Care Team Description 04/02/2025 Refill [facility] [address] [phone] Sarah Jones 04/02/2025 Refill [facility] [address] [phone] Sharla Trinidad [place] 04/01/2025 Refill [facility] [address] [phone] Casey Epstein MD 04/01/2025 Office Communication [facility] [address] [phone] Roge Lewis MD from Last 3 Months [...] Visit [facility] [address] [place] [address] [place] [phone] Roge Lewis MD [address] [facility] [address] [place] [id number] Health Maintenance Due Date Last Done Comments Pneumococcal Vaccine: 50+ Ye ars (1 of 2 - PCV) 1964 Influenza Vaccine (#1) 2025 Hepatitis B Vaccine Aged Out No longe r eligible based on patient's age to complete this topic Insurance Medicare [facility] [place] [id number] Medicare [facility] Care Teams Blow Torch Operator Relationship Specialty Start Date End Date Osmany Camejo MD [address] [place] [phone] PCP - General Internal Medicine 12/31/23
== END 2025-05-19 09:05 | disposition home or self-care (01) ==
LOC: HO.HMCC 08:29
PROVIDERS: PCP Internal Medicine; Visit Provider Internal Medicine
DX: G57.93 Unspecified mononeuropathy of bilateral lower limbs (principal); R79.89 Other specified abnormal findings of blood chemistry; I25.10 Atherosclerotic heart disease of native coronary artery without angina pectoris; E66.09 Other obesity due to excess calories; Z68.30 Body mass index [BMI] 30.0-30.9, adult; I10 Essential (primary) hypertension; N28.9 Disorder of kidney and ureter, unspecified; D63.8 Anemia in other chronic diseases classified elsewhere; M15.9 Polyosteoarthritis, unspecified

== ENCOUNTER → 2025-05-19 08:28 | Outpatient (BNVA) | payer MEDICARE, OTHER, SELFPAY | PROVIDERS: PCP Internal Medicine; Visit Provider Internal Medicine | DX: G57.93 Unspecified mononeuropathy of bilateral lower limbs (principal); R79.89 Other specified abnormal findings of blood chemistry; I25.10 Atherosclerotic heart disease of native coronary artery without angina pectoris; E66.09 Other obesity due to excess calories; Z68.30 Body mass index [BMI] 30.0-30.9, adult; I10 Essential (primary) hypertension; N28.9 Disorder of kidney and ureter, unspecified; M15.9 Polyosteoarthritis, unspecified | CPT/HCPCS: 99212 ==

== ENCOUNTER 2025-08-17 07:20 | Outpatient (REF) | payer MEDICARE, OTHER, SELFPAY ==
--- OUTSIDE RECORDS SUMMARY | 2025-08-17 07:23 | XMS_ITS | Clinical Summary ---
Author Organization [facility] Address [address] [phone] Phone Care Team Providers Care Bi Developer Name Role Phone Osmany Camejo MD Primary Care Provider [phone] Allergies No known active allergies Medications amLODIPine [...] 1 (one) time each day Active gabapentin (NEURONTIN) 100 MG capsuleIndication s:Stage [...] (one) time each day 180 tablet 3 5 Active doxazosin (CARDURA) 2 MG tablet TAKE 1 TABLET(2 MG) BY MOUTH EVERY NIGHT 90 tablet 3 Active Active Problems Problem Noted Date Diagnosed Date Essential (primary) hypertension 04/19/2022 Stage 3b chronic kidney disease 04/19/2022 Renal osteodystrophy 04/19/2022 Encounters Date Type Department Care Team Description 07/04/2025 Refill [facility] [address] [place] [phone] Casey Epstein MD from Last 3 Months Family History [...] Care Team (Late st Contact Info) Description 09/01/2025 Orders Only [facility] [address] [phone] Roge Lewis MD [address] [phone] Stage 3b chronic kidney disease (HCC); Renal osteodystrophy; Essential (primary) hypertension 09/20/2025 2:00 PM EST Office Visit [facility] [address] [place] [phone] Roge Lewis MD [address] [facility] [address] [place] [address] Health Maintenance Due Date Last Done Comments Pneumococcal Vaccine: 50+ Ye ars (1 of 2 - PCV) 1964 Influenza Vaccine (#1) 2025 Hepatitis B Vaccine Aged Out No longe r eligible based on patient's age to complete this topic Insurance Medicare [facility] Medicare [facility] Care Teams Bi Developer Relationship Specialty Start Date End Date Osmany Camejo MD [address] [place] [id number] PCP - General Internal Medicine 12/31/23
--- OUTSIDE RECORDS SUMMARY | 2025-08-17 07:23 | XMS_ITS | Encounter Summary ---
Author Organization [facility] Address [address] [place] [address] Phone Care Team Providers Care Application Counselor Name Role Phone Osmany Camejo MD Primary Care Provider [phone] Encounter Details Date Type Department Care Team (Late st Contact Info) Description 03/14/2023 Telephone [facility] [address] [place] [address] Sarah Fitch Social History Tobacco [...] Only [facility] [address] [place] [phone] Rgoe Lewis MD [address] [facility] [address] [place] [address] Stage 3b chronic kidney disease (HCC); Renal osteodystrophy; Essential (primary) hypertension 09/20/2025 2:00 PM EST Office Visit [facility] [address] [place] [address] Roge Lewis MD [address] [facility] [address] [place] [address] documented as of this encounter [...] ORDERABLES Final Re sult Performing Organization Address [facility] Co de Phone Number NELA * Albumin, urine, random (03/15/2023 11:34 AM EDT) Creatinine, Urine 185.13 mg/dL [place] Urine Microalbumin 159.0 mg/L [place] Microalbumin/Crea tinine Ratio 85.8 ug/mg cr NELA Comment: Albumin/Creatinine Ratio Reference Ranges: Normal: < 30 ug/mg creatinine Microalbuminuria: 30 - 300 ug/mg creatinine Clinical Albuminuria: > 300 ug/mg creatinine 03/15/2023 11:3 4 AM EDT 03/15/2023 11:34 AM EDT Roge Lewis MD LAB URINE ORDERABLES Final Re sult NELA * (ABNORMAL) Urinalysis with microscopic (03/15/2023 11:34 AM EDT) Color Urine Yellow [place] Appearance Urine Clear [place] pH Urine 6.0 5.0 - 9.0 [place] Glucose Urine Negative Negative mg/dL [place] Blood, Urine Negative Negative [place] Specific [place] Urine 1.015 1.005 - 1.025 [place] Protein [...] MD LAB URINE ORDERABLES Final Re sult [place] * PTH, Intact (03/15/2023 11:24 AM EDT) Parathyroid Hormone, Intact 59 16 - 77 pg/mL NELA Comment: Interpretive Guide Intact PTH Calcium ------- Normal Parathyroid Normal Normal Hypoparathyroidism Low or Low Normal Low Hyperparathyroidism Primary Normal or High High Secondary High Normal or Low Tertiary High High Non-Parathyroid Hypercalcemia Low or Low Normal High PTHI+Calcium 9.7 8.6 - 10.3 mg/dL NELA Comment: THIS TEST WAS PERFORMED AT: [facility] [address] [phone] QUIANA MONAE MD 03/15/2023 11:2 4 AM EDT 03/15/2023 11:24 AM EDT Roge Lewis MD LAB BLOOD ORDERABLES Final Re sult [place] * Vitamin D 25 Hydroxy (03/15/2023 11:24 AM EDT) Vitamin D, 25-Hydroxy 54.6 >30 ng/mL NELA Comment: Health Based Reference Values* < 20 ng/mL Deficient 20-30 ng/mL Insufficient > 30 ng/mL Sufficient *Brian REILLY. N Engl J Med. 2007;357:266-280 Care must be taken in interpreting Vitamin D results from different laboratories and methodologies. Published data demonstrated that results from patients undergoing [...] ORDERABLES Final Re sult Performing Organization Address [facility] de Phone Number NELA * Albumin (03/15/2023 11:24 AM EDT) Albumin 4.2 3.5 - 5.0 g/dL [place] 03/15/2023 11:2 4 AM EDT 03/15/2023 11:24 AM EDT Roge Lewis MD LAB BLOOD ORDERABLES Final Re sult Performing Organization Address [facility] de Phone Number TIFFANYDINAH * Magnesium (03/15/2023 11:24 AM EDT) Magnesium 2.1 1.6 - 2.6 mg/dL [facility] 03/15/2023 11:2 4 AM EDT 03/15/2023 11:24 AM EDT us Roge Lewis MD LAB BLOOD ORDERABLES Final Re sult Performing Organization Address [facility] de Phone Number HOLNE[place] * Phosphorus (03/15/2023 11:24 AM EDT) Phosphorus, Serum 3.9 2.7 - 4.5 mg/dL TIFFANYMART[place] 03/15/2023 11:2 4 AM EDT 03/15/2023 11:24 AM EDT Roge Lewis MD LAB BLOOD ORDERABLES Final Re sult TIFFANYDINAH * Calcium (03/15/2023 11:24 AM EDT) Calcium 9.6 8.4 - 10.2 mg/dL [place]FF[place]MART[place] 03/15/2023 11:2 4 AM EDT 03/15/2023 11:24 AM EDT Roge Lewis MD LAB BLOOD ORDERABLES Final Re sult Performing Organization Address [facility]/ZIP Co de Phone Number TIFFANYNELLAMARTA * (ABNORMAL) Creatinine (03/15/2023 11:24 AM EDT) Creatinine Serum 1.74(H) 0.5 - 1.4 mg/dL TIFFANYMART[place] eGFR (Calc) 38 NELA Comment: NOTE: For -[place] individuals, multiply the result by 1.210. Chronic Kidney Disease: Estimated GFR < 60 mL/min/1.73m2 Severe Kidney Disease: Estimated GFR < 15 mL/min/1.73m2 03/15/2023 11:2 4 AM EDT 03/15/2023 11:24 AM EDT Roge Lewis MD LAB BLOOD ORDERABLES Final Re sult TIFFANYDINAH * (ABNORMAL) BUN (03/15/2023 11:24 AM EDT) BUN 25(H) 9 - 16 mg/dL NELA 03/15/2023 11:2 4 AM EDT 03/15/2023 11:24 AM EDT Roge Lewis MD LAB BLOOD ORDERABLES Final Re sult NELA * (ABNORMAL) Electrolyte panel (03/15/2023 11:24 [...] ORDERABLES Final Re sult Performing Organization Address [facility] Co de Phone Number HOLDINAH * (ABNORMAL) CBC and Differential (03/15/2023 11:24 [...] on filedocumented in this encounter Care Teams Application Counselor Relationship Specialty Start Date End Date Osmany Camejo MD [address] [place] [address] PCP - General Internal Medicine 12/31/23 documented as of this encounter
[2025-08-17 10:24] LABS: MANUAL DIFF FLAG NO
[2025-08-17 10:36] LABS: Appearance Urine Clear; Glucose Urine UA Negative (Negative); PH 6.0 (5.0-9.0); Specific Gravity - Urine 1.015 (1.005-1.025); UMIC TRIGGER UA YES
[2025-08-17 10:41] LABS: Hematocrit 40.8 % (42.0-52.0); Hemoglobin 13.1 g/dl (14.0-18.0); Imm Gran Abs Auto 0.01 X10*3/uL (0.00-0.03); Imm Gran Pct Auto 0.2 % (0.0-0.4); Lymphocytes Absolute Auto 1.9 X10*3/uL (1.2-4.9); Mean Corpuscular HGB Conc 32.1 g/dl (31.0-36.0); Mean Corpuscular Hemoglobin 29.0 pg (27.0-33.0); Mean Corpuscular Volume 90.3 fL (80.0-98.0); NRBC Abs Auto 0.000 X10*3/uL (0.0-0.012); NRBC Pct Auto 0.0 /100WBC (0.0-0.2); Platelet Count 268 X10*3/uL (160-400); Red Blood Count 4.52 X10*6/uL (4.60-5.80); White Blood Count 6.4 X10*3/uL (4.8-10.8)
[2025-08-17 10:58] LABS: Microalbum/Creatinine Ratio Ur 150.1 ug/mg cr (<30); Protein/Creatinine Ratio, Ur 0.25 (<0.2); Total Protein Urine Random 36 mg/dL (<12)
[2025-08-17 11:23] LABS: Parathyroid Hormone Intact 135.2 pg/mL (8.7-77.1)
[2025-08-17 11:25] LABS: Albumin Level 4.1 g/dL (3.5-5.0); Anion Gap 12 (12-20); Blood Urea Nitrogen 26 mg/dL (9-16); Calcium 8.9 mg/dL (8.4-10.2); Carbon Dioxide 31 mmol/L (22-29); Chloride 104 mmol/L (96-108); Estimated Glomerular Filt Rate 43; Magnesium 2.4 mg/dL (1.6-2.6); Potassium 4.3 mmol/L (3.3-5.1); Sodium 143 mmol/L (135-145)
== END 2025-08-17 07:21 | disposition home or self-care (01) ==
LOC: HO.HMGCLDS 07:20
PROVIDERS: PCP Internal Medicine; Visit Provider Internal Medicine Nephrology
DX: N18.32 Chronic kidney disease, stage 3b (principal); N25.0 Renal osteodystrophy
CPT/HCPCS: 36415; 80051; 81001; 82040; 82043; 82306; 82310; 82565; 82570; 83735; 83970; 84100; 84156; 84520; 85025; 87086

== ENCOUNTER 2025-08-24 08:47 | Outpatient (AMB) | payer MEDICARE, OTHER, SELFPAY ==
[2025-08-24 08:52] VITALS: BP 128/66; PULSE 71; RESP 17; TEMP 36.6; O2SAT 96; BMI 30.4
--- NOTE | 2025-08-24 08:52 | A.OFFPC_ITS ---
Vital Signs 08/24/25 08:52 Height 5 ft 7 in Weight 194 lb BMI 30.4 BP 128/66 Blood Pressure Location Rt brachial Position Sitting Respiration 17 Pulse 71 Pulse Source Pulse Oximeter Temp 97.8 F Temp Source Oral Pulse Oximetry (%) 96 Oxygen Delivery Method Room Air Intake Visit Reasons: 3 months f/up Allergies No Known Allergies Allergy (Verified 08/24/25 08:52) Medication List - Last Reconciled 08/24/25 by Osmany Camejo MD amlodipine 5 mg PO DAILY 90 days aspirin (Adult Low Dose Aspirin) 81 mg PO DAILY atenolol-chlorthalidone 50-25 mg 1 tab PO DAILY 90 days atorvastatin 80 mg PO DAILY doxazosin 2 mg PO DAILY ezetimibe 10 mg PO DAILY gabapentin 100 mg PO BID torsemide 10 mg PO DAILY Tobacco use date assessed: 08/24/25 Fall risk assessment: No Falls in past year Last assessed Fall Risk: 08/24/25 Dental Screening Dental Screen Date: 10/16/24 HPI 3 months f/up HPI Details History of Present Illness The patient is a 80-year-old male presenting for a regular follow-up appointment. Hypertension: - The patient has a history of hypertens ion managed with amlodipine 5 mg, atenolol, and chlorthalidone. Hyperlipidemia: - The patient has a history of hyperlipi demia managed through a crown buffer with atorvastatin 80 mg and Zetia. Coronary Artery Disease: - The patient has a history of coronary artery disease with blockage in the vessels and follows up with his crown buffer every two years. Hypertensive Nephropathy: - The patient has a history of hypertens oj nephropathy and is followed by a kidney specialist. - His kidney function has recently impro lisa. Peripheral Neuropathy: - The patient has a history of periphera l neuropathy affecting both feet, for which he takes gabapentin 100 mg twice daily. Other Conditions: - Additional diagnoses include osteoarth ritis in multiple joints, anemia of chronic disease with a hemoglobin of 13.1 g/dL, and obesity with a BMI of 30.4. Immunizations: - The patient has received COVID-19 and shingles vaccines but declines the influenza vaccine due to a prior adverse reaction. Medical History: - Hypertension - Hyperlipidemia - Coronary artery disease - Hypertensive nephropathy - Anemia of chronic disease - Osteoarthritis - Peripheral neuropathy of both feet - Obesity with a BMI of 30.4 Medications: - Amlodipine 5 mg for hypertension - Atenolol for hypertension - Chlorthalidone for hypertension - Atorvastatin 80 mg for hyperlipidemia - Zetia for hyperlipidemia - Torsemide 10 mg - Gabapentin 100 mg BID for peripheral n europathy Social History: - Reports smoking marijuana at night. Problem List - Essential Hypertension - Hyperlipidemia - Osteoarthritis - Peripheral Neuropathy - Anemia of Chronic Disease - Hypertensive Nephropathy - Obesity with a BMI of 30.4 - Coronary Artery Disease - Preventative Care: Immunizations discu ssed (COVID-19, shingles, flu). Plan - Continue current medications, includin g amlodipine, atenolol, and chlorthalidone for hypertension, atorvastatin and Zetia for hyperlipidemia, and gabapentin for neuropathy, as they are well-tolerated and effective. - The patient should continue follow-up with his crown buffer for management of hyperlipidemia and coronary artery disease. - The patient was advised to call the ne phrologist's office to confirm his upcoming appointment.. - A request will be made to [facility] to send a record of the patient's vaccinations. - The patient will follow up for a physi john exam in January. Review of Systems - General: No fever no chills - Neurological: No headaches no dizziness - Ear nose throat: No sore throat no hearing difficulty no ear pain - Cardiovascular: No syncope, no chest pain, no palpitations - Gastrointestinal: No nausea vomiting or diarrhea Physical Exam General: No acute distress HEENT: No acute findings Neck: Supple Respiratory system: Able to talk in full sentences, no audible wheeze Cardiovascular: S1-S2 regular in rate and rhythm Gastrointestinal: No pain Extremities: No swelling [place] MATE: Alert awake oriented x3 motor intact Skin: Normal turgor FOR[facility]LY [facility], 1928–1983 Medical History CAD (coronary artery disease) Uncontrolled hypertension No known health problems Surgical History No pertinent past surgical history Family History Father Heart attack Daughter Hypertension Social History [facility]: [facility] Alcohol intake: current Alcohol intake frequency: a few times a week Alcohol type: beer Patient Tobacco Use Status: Former Tobacco user Cigarette Packs Per Day: 0.5 Years Smoked: 20 years e-Cigarette/Vaping Use: Never Used Second Hand Smoke Exposure: No Substance Use Type: Marijuana service: Yes Current occupational status: retired Cognitive needs: No Hearing needs: No Vision needs: Yes Questionnaire PHQ-9 Over the last 2 weeks, how often have you been bothered by any of the following problems? 1. Little interest or pleasure in doing things: not at all 2. Feeling down, depressed, or hopeless: not at all 3. Trouble falling or staying asleep, or sleeping too much: not at all 4. Feeling tired or having little energy: not at all 5. Poor appetite or overeating: not at all 6. Feeling bad about yourself - or that you are a failure or have let yourself or your family down: not at all 7. Trouble concentrating on things, such as reading the newspaper or watching television: not at all 8. Moving or speaking so slowly that other people could have noticed. Or the opposite - being so fidgety or restless that you have been moving around a lot more than usual: not at all 9. Thoughts that you would be better off or of hurting yourself in some way: not at all Total score: 0 Depression Screening Interpretation: Negative Depression Screening Done: Yes 66456 - PHQ-9 Billing: Yes Source: Developed by Drs. Elan Lowe, Felicita Pedro, Pablo Moss and colleagues, with an educational [place] from [employer]. Thrive Questionnaire Date Thrive assessed: 05/19/25 I am a: Patient What is your living situation today?: I have a steady place to live Within the past 12 months, did the food you bought not last and you didn't have the money to get more?: Often true Within the past 12 months, did you worry whether your food would run out before you got money to buy more?: Often true Do you have trouble paying for medicines?: No Do you have trouble getting transportation to medical appointments?: No Do you have trouble paying your heating and electricity bill?: No Do you have trouble taking care of your child, family member or friend?: No Do you have trouble with day-to-day activities such as bathing, preparing meals, shopping, managing finances, etc.?: No Are you currently unemployed and looking for a job?: No Are you interested in more education?: No Please select the resources that you would like help with: None Currently or been in a relationship where the following occur: I choose not to answer THRIVE Score: 2 YVES-7 AMB Questionnaire YVES-7 Date YVES - 7 assessed: 01/15/25 Feeling nervous, anxious, or on edge: 0 = Not at all Not being able to stop or control worryin = Not at all Worrying too much about different things: 0 = Not at all Trouble relaxin = Not at all Being so restless that it is hard to sit still: 0 = Not at all Becoming easily annoyed or irritable: 0 = Not at all Feeling afraid as if something awful might happen: 0 = Not at all Total YVES-7 score (0-4 normal; 5-9 mild; 10-14 moderate; 15-21 severe): 0 Source: Developed by Drs. Elan Lowe, Felicita Pedro, Pablo Moss and colleagues, with an educational [place] from [employer]. Physical exam (Primary Care) Vital Signs: Last Vital Signs Temp 97.8 F 08/24/25 08:52 Pulse 71 08/24/25 08:52 Resp 17 08/24/25 08:52 BP 128/66 08/24/25 08:52 Pulse Ox 96 08/24/25 08:52 Oxygen Delivery Method Room Air 08/24/25 08:52 BMI result Body Mass Index 30.4 Tobacco/Smoking Status: Tobacco use Status Tobacco use date assessed 08/24/25 08/24/25 08:58 Patient Tobacco Use Status Former Tobacco user 08/24/25 08:58 e-Cigarette/Vaping Use Never Used 08/24/25 08:58 PHQ-9: PHQ-9 Score PHQ-9: Total score 0 08/24/25 09:13 Depression Screening Interpretation: Negative Thrive Assessment: Date of Thrive Assessment Date Thrive assessed 05/19/25 08/24/25 08:58 Currently or been in a relationship where the following occur: I choose not to answer Coding Level of Care Code Est Pt Level 4 (81798) Complex EM visit Add On G2211 Diagnoses Hypertension, essential I10 Neuropathy of both feet G57.93 Coronary artery disease involving [place] coronary artery of [place] heart without angina pectoris I25.10 Coronary Disease-Associated Artery/Lesion type: [place] artery [place] vs. transplanted heart: [place] heart Associated angina: without angina Nephropathy N28.9 Anemia of chronic disease D63.8 Class 1 obesity due to excess calories with serious comorbidity and body mass index (BMI) of 30.0 to 30.9 in adult E66.09; Z68.30 Obesity classification: adult class 1 (BMI 30 - 34.9) Serious obesity comorbidity presence: with serious comorbidity Body mass index: BMI 30.0-30.9 Osteoarthritis involving multiple joints on both sides of body M15.9 Additional Codes PHQ-9 - 27151 - PHQ-9 Billing: Yes ([id number]) Assessment & Plan Assessment & Plan (1) Hypertension, essential: Code(s): I10 - Essential (primary) hypertension Category: Medical (2) Neuropathy of both feet: Code(s): G57.93 - Unspecified mononeuropathy of bilateral lower limbs Category: Medical (3) CAD (coronary artery disease): Comment: No nonobstructive by coronary CTA, September 2021 Code(s): I25.10 - Atherosclerotic heart disease of [place] coronary artery without angina pectoris Category: Medical Qualifiers: Coronary Disease-Associated Artery/Lesion type: [place] artery [place] vs. transplanted heart: [place] heart Associated angina: without angina Qualified Code(s): I25.10 - Atherosclerotic heart disease of [place] coronary artery without angina pectoris (4) Nephropathy: Code(s): N28.9 - Disorder of kidney and ureter, unspecified Category: Medical (5) Anemia of chronic disease: Code(s): D63.8 - Anemia in other chronic diseases classified elsewhere Category: Medical (6) Obesity due to excess calories: Code(s): E66.09 - Other obesity due to excess calories Category: Medical Qualifiers: Obesity classification: adult class 1 (BMI 30 - 34.9) Serious obesity comorbidity presence: with serious comorbidity Body mass index: BMI 30.0-30.9 Qualified Code(s): E66.09 - Other obesity due to excess calories; Z68.30 - Body mass index [BMI] 30.0-30.9, adult (7) Osteoarthritis involving multiple joints on both sides of body: Code(s): M15.9 - Polyosteoarthritis, unspecified Category: Medical Plan Hypertension: - The patient has a history of hypertension managed with amlodipine 5 mg, atenolol, and chlorthalidone. Hyperlipidemia: - The patient has a history of hyperlipidemia managed through a crown buffer with atorvastatin 80 mg and Zetia. Coronary Artery Disease: - The patient has a history of coronary artery disease with blockage in the vessels and follows up with his crown buffer every two years. Hypertensive Nephropathy: - The patient has a history of hypertensive nephropathy and is followed by a kidney specialist. - His kidney function has recently improved. Peripheral Neuropathy: - The patient has a history of peripheral neuropathy affecting both feet, for which he takes gabapentin 100 mg twice daily. Other Conditions: - Additional diagnoses include osteoarthritis in multiple joints, anemia of chronic disease with a hemoglobin of 13.1 g/dL, and obesity with a BMI of 30.4. Immunizations: - The patient has received COVID-19 and shingles vaccines but declines the influenza vaccine due to a prior adverse reaction. Medical History: - Hypertension - Hyperlipidemia - Coronary artery disease - Hypertensive nephropathy - Anemia of chronic disease - Osteoarthritis - Peripheral neuropathy of both feet - Obesity with a BMI of 30.4 Medications: - Amlodipine 5 mg for hypertension - Atenolol for hypertension - Chlorthalidone for hypertension - Atorvastatin 80 mg for hyperlipidemia - Zetia for hyperlipidemia - Torsemide 10 mg - Gabapentin 100 mg BID for peripheral neuropathy Social History: - Reports smoking marijuana at night. Problem List - Essential Hypertension - Hyperlipidemia - Osteoarthritis - Peripheral Neuropathy - Anemia of Chronic Disease - Hypertensive Nephropathy - Obesity with a BMI of 30.4 - Coronary Artery Disease - Preventative Care: Immunizations discussed (COVID-19, shingles, flu). Plan - Continue current medications, including amlodipine, atenolol, and chlorthalidone for hypertension, atorvastatin and Zetia for hyperlipidemia, and gabapentin for neuropathy, as they are well-tolerated and effective. - The patient should continue follow-up with his crown buffer for management of hyperlipidemia and coronary artery disease. 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 - A request will be made to [facility] to send a record of the patient's vaccinations. - The patient will follow up for a physical exam in January.
== END 2025-08-24 09:18 | disposition home or self-care (01) ==
LOC: HO.HMCC 08:48
PROVIDERS: PCP Internal Medicine; Visit Provider Internal Medicine
DX: I10 Essential (primary) hypertension (principal); G57.93 Unspecified mononeuropathy of bilateral lower limbs; I25.10 Atherosclerotic heart disease of native coronary artery without angina pectoris; N28.9 Disorder of kidney and ureter, unspecified; D63.8 Anemia in other chronic diseases classified elsewhere; E66.09 Other obesity due to excess calories; Z68.30 Body mass index [BMI] 30.0-30.9, adult; M15.9 Polyosteoarthritis, unspecified

== ENCOUNTER → 2025-08-24 08:47 | Outpatient (BNVA) | payer MEDICARE, OTHER, SELFPAY | PROVIDERS: PCP Internal Medicine; Visit Provider Internal Medicine | DX: I10 Essential (primary) hypertension (principal); G57.93 Unspecified mononeuropathy of bilateral lower limbs; N28.9 Disorder of kidney and ureter, unspecified; D63.8 Anemia in other chronic diseases classified elsewhere; E66.09 Other obesity due to excess calories; Z68.30 Body mass index [BMI] 30.0-30.9, adult; M15.9 Polyosteoarthritis, unspecified; Z87.891 Personal history of nicotine dependence | CPT/HCPCS: 96127; 99212 ==